=== PATIENT | female | born 1965 | race Caucasian/White ===

== ENCOUNTER 2020-01-09 15:18 | Emergency (ER) | payer OTHER, SELFPAY ==
--- NOTE | 2020-01-09 | ECG_ITS ---
Test Reason : CHEST PAIN Blood Pressure : / mmHG Vent. Rate : 103 BPM Atrial Rate : 103 BPM P-R Int : 136 ms QRS Dur : 086 ms QT Int : 318 ms P-R-T Axes : 036 037 033 degrees QTc Int : 416 ms Sinus tachycardia Otherwise normal ECG When compared with ECG of 17-OCT-2016 11:06, No significant change was found Heart rate has increased Referred By: Xin Goldstein Electronically Signed By:MAINOR MCFADDEN MD
[2020-01-09 15:20] VITALS: BP 140/65; PULSE 109; RESP 20; TEMP 36.8; O2SAT 98; BMI 37.3
--- NOTE | 2020-01-09 15:32 | ED_ITS ---
HPI - Chest Pain General Chief Complaint: Chest Pain Stated Complaint: Chest discomfort Time Seen by Provider: 01/09/20 15:31 Source: patient Mode of arrival: ambulatory History of Present Illness HPI narrative: 54-year-old female with a past medical history of asthma, diabetes, hyperlipidemia, hypertension presenting to the ED complaining of substernal chest tightness since yesterday morning. Admits symptoms have been constant. Reports chronic SOB due to asthma, no new or worsening SOB. 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 Reports was recently tested and negative. Denies fever, chills, cough, nausea/vomiting, abdominal pain, recent travel, LE edema, history of clots MD complaint: chest pain and chest discomfort Related Data Allergies Allergy/AdvReac Type Severity Reaction Status Date / Time DUST Allergy Unknown SHORTNESS Uncoded 11/12/19 16:28 OF BREATH Review of Systems Review of Systems: Constitutional: No Weight loss, No Fever, No Chills Cardiovascular: + Chest Pain, +chronic SOB, No Dyspnea on Exertion, No Edema, No Palpitations Respiratory: No Cough, No Sputum, No Wheezing, No Dyspnea Gastrointestinal: No Nausea, No Vomiting, No Diarrhea, No Constipation, No Abdominal pain Musculoskeletal: No joint pain, No Myalgias, No Joint Swelling Skin: No Skin Lesions, No rash Neuro: No Weakness, No Numbness, No Paresthesias Yes all other systems are reviewed and are negative [facility] Past Medical History Attestation statement: The following information was validated with the patient. Medical History (Updated 01/09/20 @ 16:47 by MANAS Kilgore) Asthma Diabetes mellitus, type 2 Hypercholesteremia Hypertension Social History Social History Alcohol intake: never Smoking Status: Never smoker Use of substances other than those prescribed or required for medical reasons: No Advance Directives: No Advance Directives Information Provided: Yes Physical Exam Vital Signs: Vital Signs: Last Vital Signs Temp 98.2 F 01/09/20 15:20 Pulse 109 H 01/09/20 15:20 Resp 20 01/09/20 15:20 BP 140/65 H 01/09/20 15:20 Pulse Ox 98 01/09/20 15:20 Body Mass Index 37.3 Const: General: cooperative and healthy appearing Orientation/consciousness: patient oriented x3 Limitations: no limitations HENMT: Head: Yes normal to inspection Ears: hearing grossly normal bilaterally General nose exam: Normal external nose present Face and sinus: Yes normal facial exam Eyes: General: appearance normal, both eyes and all related structures EOM: EOMs intact bilaterally Neck: Neck: Yes normal visual inspection Chest: Chest palpation & inspection: normal inspection of the chest Resp: Effort & Inspection: normal respiratory effort Auscultation: clear to auscultation bilaterally, no rales, no rhonchi and no wheezes Cardio: Rate: regular rate Heart sounds: S1 normal heart sound present and S2 normal heart sound present GI: Inspection: Yes normal to inspection Palpation (GI): Soft to palpation, nontender, no guarding and not rigid Skin: Rashes: no rashes Wounds: no wounds Neuro: General: patient oriented x3 Gait exam (Neuro): Normal gait present Extrem: General: Yes normal to inspection Course Course Course Narrative: -labs unremarkable, troponin negative, CXR unremarkable Lab results discussed with patient including worrisome signs and symptoms and st rict return precautions. Patient is to follow-up with PCP MDM - Chest Pain MDM Narrative Medical decision making narrative: 54-year-old female with a past medical history of asthma, diabetes, HLD, HTN presenting to the ED complaining of substernal chest tightness since yesterday morning. On exam mildly tachycardic, anxious, lungs CTA, CP not reproducible on exam. Concern for ACS vs anxiety vs GERD. Lower concern for PE/DVT or CHF/pneumonia Plan: EKG, labs, CXR, reassess Lab Data Result diagrams: 01/09/20 16:00 01/09/20 16:00 Labs: Lab Results 01/09/20 01/09/20 01/09/20 Range/Units 16:00 16:00 16:00 WBC 8.8 (4.8-10.8) X10*3/uL RBC 4.35 (4.20-5.50) X10*6/uL Hgb 12.9 (12.0-16.0) g/dl Hct 39.7 (37-47) % MCV 91.3 (80-98) fL MCH 29.7 (27.0-33.0) pg MCHC 32.5 (31.0-35.0) g/dl RDW 13.6 (11.0-16.0) % Plt Count 321 (160-400) X10*3/uL MPV 10.3 (9.4-12.3) fL Immature Gran % (Auto) 0.2 (0.0-0.4) % Neut % (Auto) 68.2 (45-73) % Lymph % (Auto) 20.1 (20-40) % [place] % (Auto) 9.4 (2-11) % Eos % (Auto) 1.6 (0-4) % Baso % (Auto) 0.5 (0-2) % Lymph # (Auto) 1.8 (1.2-4.9) X10*3/uL [place] # (Auto) 0.8 (0.1-1.2) X10*3/uL Eos # (Auto) 0.1 (0.0-0.4) X10*3/uL Baso # (Auto) 0.0 (0.0-0.2) X10*3/uL Abs Immat Gran (auto) 0.02 (0.00-0.03) X10*3/uL Absolute Neuts (auto) 6.0 (2.0-8.3) X10*3/uL Absolute Nucleated RBC 0.000 (0.0-0.012) X10*3/uL Nucleated RBC % (auto) 0.0 (0.0-0.2) /100WBC Hold Blue Top SEE NOTE Sodium 140 (135-145) mmol/L Potassium 4.4 (3.3-5.1) mmol/l Chloride 106 (96-108) mmol/L Carbon Dioxide 25 (22-29) mmol/L Anion Gap 13 (12-20) BUN 12 (9-16) mg/dL Creatinine 0.82 (0.5-1.4) mg/dL Estim Creat Clear Calc 87.3 Estimated GFR > 60 Random Glucose 97 (60-115) mg/dL Calcium 8.5 (8.4-10.2) mg/dL Magnesium 1.7 (1.6-2.6) mg/dL Total Bilirubin 0.6 (0.0-1.0) mg/dL Direct Bilirubin 0.2 (0.0-0.5) mg/dL AST 21 (5-31) U/L ALT 18 (0-31) U/L Alkaline Phosphatase 84 (39-117) U/L Troponin I High Sens (<3.5-17.0) ng/L B-Natriuretic Peptide (<100) pg/mL Total Protein 6.4 L (6.5-8.0) g/dL Albumin 3.7 (3.5-5.0) g/dL Lipase 10 (8-78) U/L 01/09/20 Range/Units 16:00 WBC (4.8-10.8) X10*3/uL RBC (4.20-5.50) X10*6/uL Hgb (12.0-16.0) g/dl Hct (37-47) % MCV (80-98) fL MCH (27.0-33.0) pg MCHC (31.0-35.0) g/dl RDW (11.0-16.0) % Plt Count (160-400) X10*3/uL MPV (9.4-12.3) fL Immature Gran % (Auto) (0.0-0.4) % Neut % (Auto) (45-73) % Lymph % (Auto) (20-40) % [place] % (Auto) (2-11) % Eos % (Auto) (0-4) % Baso % (Auto) (0-2) % Lymph # (Auto) (1.2-4.9) X10*3/uL [place] # (Auto) (0.1-1.2) X10*3/uL Eos # (Auto) (0.0-0.4) X10*3/uL Baso # (Auto) (0.0-0.2) X10*3/uL Abs Immat Gran (auto) (0.00-0.03) X10*3/uL Absolute Neuts (auto) (2.0-8.3) X10*3/uL Absolute Nucleated RBC (0.0-0.012) X10*3/uL Nucleated RBC % (auto) (0.0-0.2) /100WBC Hold Blue Top Sodium (135-145) mmol/L Potassium (3.3-5.1) mmol/l Chloride (96-108) mmol/L Carbon Dioxide (22-29) mmol/L Anion Gap (12-20) BUN (9-16) mg/dL Creatinine (0.5-1.4) mg/dL Estim Creat Clear Calc Estimated GFR Random Glucose (60-115) mg/dL Calcium (8.4-10.2) mg/dL Magnesium (1.6-2.6) mg/dL Total Bilirubin (0.0-1.0) mg/dL Direct Bilirubin (0.0-0.5) mg/dL AST (5-31) U/L ALT (0-31) U/L Alkaline Phosphatase (39-117) U/L Troponin I High Sens < 3.5 (<3.5-17.0) ng/L B-Natriuretic Peptide 11 (<100) pg/mL Total Protein (6.5-8.0) g/dL Albumin (3.5-5.0) g/dL Lipase (8-78) U/L ECG Data ECG #1: Attestation: I personally reviewed and interpreted this ECG as follows: ECG interpretation date: 01/09/20 Interpretation: Sinus tachycardia, rate 103, no ischemic changes. No ST elevation Discharge Plan Discharge Clinical Impression: Chest pain Patient Disposition: Home, Self-Care Instructions: Chest Pain (ED) Additional Instructions: Your blood work and chest x-ray were unremarkable today in the ED You need to follow-up with her primary care doctor If her symptoms persist or worsen, become more constant, he developed shortness of breath, or fever return to the ED Referrals: Kassi Trejo MD [Primary Care Provider] - 2 days
--- NOTE | 2020-01-09 15:37 | XR_ITS ---
EXAMINATION: XR CHEST CLINICAL INFORMATION: 54-year-old female patient with chest pain. COMPARISON: None recent. TECHNIQUE: PA and lateral erect views of the chest. FINDINGS: The cardiovascular, mediastinal, and hilar structures are normal. There is no evidence of acute pulmonary parenchymal or pleural disease. The bony thorax is intact. A presumptive artifact projects in the right supraclavicular region. XR/XR chest 2V IMPRESSION: No acute cardiopulmonary disease.
[2020-01-09 15:53] VITALS: PULSE 100
[2020-01-09 16:05] LABS: MANUAL DIFF FLAG NO
[2020-01-09 16:09] LABS: Basophils Percent Auto 0.5 % (0-2); Eosinophils Absolute Auto 0.1 X10*3/uL (0.0-0.4); Eosinophils Percent Auto 1.6 % (0-4); Hematocrit 39.7 % (37-47); Hemoglobin 12.9 g/dl (12.0-16.0); Imm Gran Abs Auto 0.02 X10*3/uL (0.00-0.03); Imm Gran Pct Auto 0.2 % (0.0-0.4); Lymphocytes Absolute Auto 1.8 X10*3/uL (1.2-4.9); Lymphocytes Percent Auto 20.1 % (20-40); Mean Corpuscular HGB Conc 32.5 g/dl (31.0-35.0); Mean Corpuscular Hemoglobin 29.7 pg (27.0-33.0); Mean Corpuscular Volume 91.3 fL (80-98); Mean Platelet Volume 10.3 fL (9.4-12.3); Monocytes Absolute Auto 0.8 X10*3/uL (0.1-1.2); Monocytes Percent Auto 9.4 % (2-11); Neutrophils Percent Auto 68.2 % (45-73); Platelet Count 321 X10*3/uL (160-400); Red Blood Count 4.35 X10*6/uL (4.20-5.50); Red Cell Distribution Width 13.6 % (11.0-16.0); White Blood Count 8.8 X10*3/uL (4.8-10.8)
[2020-01-09] MEDS: Famotidine/PF 20 MG/2 ML VIAL IVPUSH (16:09)
[2020-01-09 16:32] LABS: Alanine Aminotransferase 18 U/L (0-31); Albumin Level 3.7 g/dL (3.5-5.0); Alkaline Phosphatase 84 U/L (39-117); Anion Gap 13 (12-20); Aspartate Amino Transferase 21 U/L (5-31); Bilirubin Direct 0.2 mg/dL (0.0-0.5); Bilirubin Total 0.6 mg/dL (0.0-1.0); Blood Urea Nitrogen 12 mg/dL (9-16); Calcium 8.5 mg/dL (8.4-10.2); Carbon Dioxide 25 mmol/L (22-29); Chloride 106 mmol/L (96-108); Creatinine Clr Calc Pharmacy 87.3; Estimated Glomerular Filt Rate > 60; Glucose Random 97 mg/dL (60-115); Lipase 10 U/L (8-78); Magnesium 1.7 mg/dL (1.6-2.6); Potassium 4.4 mmol/l (3.3-5.1); Sodium 140 mmol/L (135-145); Total Protein 6.4 g/dL (6.5-8.0)
[2020-01-09 16:40] LABS: B Type Natriuretic Peptide 11 pg/mL (<100); Troponin-I High Sensitivity < 3.5 ng/L (<3.5-17.0)
[2020-01-09 17:03] VITALS: BP 120/66; PULSE 95; RESP 16; TEMP 36.8; O2SAT 98
== END 2020-01-09 17:10 | disposition home or self-care (01) ==
PROVIDERS: Physician Assistant; Emergency Provider Emergency Medicine; PCP Internal Medicine
DX: R07.9 Chest pain, unspecified (principal); E11.9 Type 2 diabetes mellitus without complications; I10 Essential (primary) hypertension; Z79.899 Other long term (current) drug therapy
CPT/HCPCS: 36415; 71046; 80048; 80076; 83690; 83735; 83880; 84484; 85025; 93005; 96374; 99284

== ENCOUNTER 2020-02-09 08:42 | Outpatient (REF) | payer OTHER, SELFPAY ==
[2020-02-09 09:38] LABS: MANUAL DIFF FLAG NO
[2020-02-09 09:51] LABS: Basophils Percent Auto 0.4 % (0-2); Eosinophils Absolute Auto 0.1 X10*3/uL (0.0-0.4); Eosinophils Percent Auto 1.7 % (0-4); Hematocrit 40.4 % (37-47); Hemoglobin 13.1 g/dl (12.0-16.0); Imm Gran Abs Auto 0.02 X10*3/uL (0.00-0.03); Imm Gran Pct Auto 0.3 % (0.0-0.4); Lymphocytes Absolute Auto 1.5 X10*3/uL (1.2-4.9); Lymphocytes Percent Auto 19.6 % (20-40); Mean Corpuscular HGB Conc 32.4 g/dl (31.0-35.0); Mean Corpuscular Hemoglobin 29.7 pg (27.0-33.0); Mean Corpuscular Volume 91.6 fL (80-98); Mean Platelet Volume 11.3 fL (9.4-12.3); Monocytes Absolute Auto 0.6 X10*3/uL (0.1-1.2); Monocytes Percent Auto 8.2 % (2-11); Neutrophils Absolute Auto 5.5 X10*3/uL (2.0-8.3); Neutrophils Percent Auto 69.8 % (45-73); Platelet Count 308 X10*3/uL (160-400); Red Blood Count 4.41 X10*6/uL (4.20-5.50); Red Cell Distribution Width 13.6 % (11.0-16.0); White Blood Count 7.8 X10*3/uL (4.8-10.8)
[2020-02-09 10:19] LABS: Estimated Average Glucose 114 mg/dL; Hemoglobin A1c % 5.6 %
[2020-02-09 10:23] LABS: Alanine Aminotransferase 14 U/L (0-31); Albumin Level 3.8 g/dL (3.5-5.0); Alkaline Phosphatase 80 U/L (39-117); Anion Gap 13 (12-20); Aspartate Amino Transferase 20 U/L (5-31); Bilirubin Total 0.7 mg/dL (0.0-1.0); Blood Urea Nitrogen 12 mg/dL (9-16); Calcium 9.2 mg/dL (8.4-10.2); Carbon Dioxide 26 mmol/L (22-29); Chloride 105 mmol/L (96-108); Cholesterol 159 mg/dL; Estimated Glomerular Filt Rate > 60; Glucose Random 88 mg/dL (60-115); HDL Cholesterol 52 mg/dL; LDL Cholesterol Calculated 79 mg/dl; Potassium 4.7 mmol/l (3.3-5.1); Sodium 139 mmol/L (135-145); Total Protein 6.5 g/dL (6.5-8.0); Triglycerides 141 mg/dL
[2020-02-09 10:46] LABS: Ferritin 10 ng/mL (10-250); Thyroid Stimulating Hormone 1.58 uIU/mL (0.32-4.0)
== END 2020-02-09 08:43 | disposition home or self-care (01) ==
LOC: HO.LAB 08:42
PROVIDERS: Visit Provider Internal Medicine
DX: E78.00 Pure hypercholesterolemia, unspecified (principal); D50.8 Other iron deficiency anemias; I10 Essential (primary) hypertension; R73.01 Impaired fasting glucose; Z00.00 Encounter for general adult medical examination without abnormal findings
CPT/HCPCS: 36415; 80053; 80061; 82728; 83036; 84443; 85025

== ENCOUNTER 2020-04-16 09:05 | Outpatient (REF) | payer OTHER, SELFPAY ==
[2020-04-16 09:42] LABS: MANUAL DIFF FLAG NO
[2020-04-16 09:48] LABS: Basophils Percent Auto 0.4 % (0-2); Eosinophils Absolute Auto 0.1 X10*3/uL (0.0-0.4); Eosinophils Percent Auto 1.7 % (0-4); Hematocrit 41.1 % (37-47); Hemoglobin 13.2 g/dl (12.0-16.0); Imm Gran Abs Auto 0.01 X10*3/uL (0.00-0.03); Imm Gran Pct Auto 0.1 % (0.0-0.4); Lymphocytes Absolute Auto 1.9 X10*3/uL (1.2-4.9); Lymphocytes Percent Auto 26.7 % (20-40); Mean Corpuscular HGB Conc 32.1 g/dl (31.0-35.0); Mean Corpuscular Hemoglobin 29.5 pg (27.0-33.0); Mean Corpuscular Volume 91.7 fL (80-98); Mean Platelet Volume 10.7 fL (9.4-12.3); Monocytes Absolute Auto 0.6 X10*3/uL (0.1-1.2); Monocytes Percent Auto 8.9 % (2-11); Neutrophils Absolute Auto 4.4 X10*3/uL (2.0-8.3); Neutrophils Percent Auto 62.2 % (45-73); Platelet Count 369 X10*3/uL (160-400); Red Blood Count 4.48 X10*6/uL (4.20-5.50); Red Cell Distribution Width 13.1 % (11.0-16.0); White Blood Count 7.1 X10*3/uL (4.8-10.8)
[2020-04-16 09:58] LABS: Estimated Average Glucose 114 mg/dL; Hemoglobin A1c % 5.6 %
[2020-04-16 10:25] LABS: Alanine Aminotransferase 16 U/L (0-31); Alkaline Phosphatase 94 U/L (39-117); Anion Gap 14 (12-20); Aspartate Amino Transferase 19 U/L (5-31); Bilirubin Total 0.7 mg/dL (0.0-1.0); Blood Urea Nitrogen 12 mg/dL (9-16); Calcium 9.9 mg/dL (8.4-10.2); Carbon Dioxide 27 mmol/L (22-29); Chloride 104 mmol/L (96-108); Cholesterol 175 mg/dL; Estimated Glomerular Filt Rate > 60; Glucose Random 79 mg/dL (60-115); HDL Cholesterol 53 mg/dL; LDL Cholesterol Calculated 81 mg/dl; Potassium 4.8 mmol/L (3.3-5.1); Sodium 140 mmol/L (135-145); Total Protein 6.9 g/dL (6.5-8.0); Triglycerides 208 mg/dL
[2020-04-16 10:47] LABS: Thyroid Stimulating Hormone 1.71 uIU/mL (0.32-4.0)
== END 2020-04-16 09:06 | disposition home or self-care (01) ==
LOC: HO.LAB 09:05
PROVIDERS: PCP Internal Medicine; Visit Provider Internal Medicine
DX: Z00.00 Encounter for general adult medical examination without abnormal findings (principal); D50.8 Other iron deficiency anemias; E78.00 Pure hypercholesterolemia, unspecified; I10 Essential (primary) hypertension; R73.01 Impaired fasting glucose
CPT/HCPCS: 36415; 80053; 80061; 83036; 84443; 85025

== ENCOUNTER 2020-08-24 07:57 | Outpatient (REF) | payer OTHER, SELFPAY ==
--- NOTE | ~2020-08-24 | MM_ITS ---
EXAMINATION: MM SCREENING DIGITAL BREAST TOMOSYNTHESIS, BILATERAL CLINICAL INFORMATION: Screening. Asymptomatic. The lifetime risk of breast cancer based on the Tyrer-Cuzick Model is 8.5%. COMPARISON: Mammography: August 19, 2019 and studies dating back to June 22, 2013 TECHNIQUE: Digital breast tomosynthesis is performed in both the craniocaudal and mediolateral oblique views along with computer-aided detection (CAD). Synthesized 2D images are generated from the tomosynthesis. FINDINGS: There are scattered areas of fibroglandular density (ACR BI-RADS breast composition Category b). There are no significant masses, abnormal calcifications, or other abnormalities. MM/MM tomosynthesis screening BI IMPRESSION: There are no significant changes from prior study. ASSESSMENT: BI-RADS BI-RADS 1 RECOMMENDATION: Routine annual mammography screening. This patient's information was entered into a reminder system with a target due date for their next mammogram.
== END 2020-08-24 07:58 | disposition home or self-care (01) ==
LOC: HO.MAMMO 07:57
PROVIDERS: PCP Internal Medicine; Visit Provider Internal Medicine
DX: Z12.31 Encounter for screening mammogram for malignant neoplasm of breast (principal)
CPT/HCPCS: 77063; 77067

== ENCOUNTER 2021-03-14 15:03 | Outpatient (REF) | payer OTHER, SELFPAY ==
[2021-03-14 15:57] LABS: Binax Internal Control QC Valid; Binax Now Covid-19 Ag Positive (Negative)
== END 2021-03-14 15:04 | disposition home or self-care (01) ==
LOC: HO.LAB 15:03
PROVIDERS: Visit Provider Internal Medicine
DX: Z20.822 Contact with and (suspected) exposure to COVID-19 (principal)
CPT/HCPCS: C9803

== ENCOUNTER 2021-03-30 13:26 | Outpatient (REF) | payer OTHER, SELFPAY ==
[2021-03-30 13:49] LABS: COVID-19 Test Negative (Negative); IDNOW Serial# 16C4AD1C
== END 2021-03-30 13:27 | disposition home or self-care (01) ==
LOC: HO.LAB 13:26
PROVIDERS: Visit Provider Internal Medicine
DX: Z20.822 Contact with and (suspected) exposure to COVID-19 (principal)
CPT/HCPCS: 87635; C9803

== ENCOUNTER 2021-04-21 09:23 | Outpatient (REF) | payer OTHER, SELFPAY ==
[2021-04-21 09:44] LABS: MANUAL DIFF FLAG NO
[2021-04-21 10:00] LABS: Basophils Percent Auto 0.2 % (0-2); Eosinophils Absolute Auto 0.1 X10*3/uL (0.0-0.4); Eosinophils Percent Auto 1.7 % (0-4); Hematocrit 42.3 % (37.0-47.0); Hemoglobin 13.7 g/dl (12.0-16.0); Imm Gran Abs Auto 0.02 X10*3/uL (0.00-0.03); Imm Gran Pct Auto 0.2 % (0.0-0.4); Lymphocytes Absolute Auto 2.5 X10*3/uL (1.2-4.9); Lymphocytes Percent Auto 30.4 % (20-40); Mean Corpuscular HGB Conc 32.4 g/dl (31.0-35.0); Mean Corpuscular Hemoglobin 29.3 pg (27.0-33.0); Mean Corpuscular Volume 90.6 fL (80.0-98.0); Mean Platelet Volume 10.5 fL (9.4-12.3); Monocytes Absolute Auto 0.7 X10*3/uL (0.1-1.2); Monocytes Percent Auto 8.4 % (2-11); Neutrophils Absolute Auto 4.8 x10*3/uL (2.0-8.3); Neutrophils Percent Auto 59.1 % (45-73); Platelet Count 335 X10*3/uL (160-400); Red Blood Count 4.67 X10*6/uL (4.20-5.50); Red Cell Distribution Width 13.4 % (11.0-16.0); White Blood Count 8.1 X10*3/uL (4.8-10.8)
[2021-04-21 10:16] LABS: Estimated Average Glucose 108 mg/dL; Hemoglobin A1c % 5.4 %
[2021-04-21 10:26] LABS: Alanine Aminotransferase 13 U/L (0-31); Alkaline Phosphatase 75 U/L (39-117); Anion Gap 14 (12-20); Aspartate Amino Transferase 18 U/L (5-31); Bilirubin Total 0.6 mg/dL (0.0-1.0); Blood Urea Nitrogen 14 mg/dL (9-16); Calcium 9.9 mg/dL (8.4-10.2); Carbon Dioxide 22 mmol/L (22-29); Chloride 106 mmol/L (96-108); Estimated Glomerular Filt Rate > 60; Glucose Random 79 mg/dL (60-115); Potassium 4.2 mmol/L (3.3-5.1); Sodium 138 mmol/L (135-145); Total Protein 6.8 g/dL (6.5-8.0)
[2021-04-21 10:47] LABS: Thyroid Stimulating Hormone 2.69 uIU/mL (0.32-4.0)
== END 2021-04-21 09:24 | disposition home or self-care (01) ==
LOC: HO.LAB 09:23
PROVIDERS: PCP Internal Medicine; Visit Provider Internal Medicine
DX: Z00.00 Encounter for general adult medical examination without abnormal findings (principal); E78.2 Mixed hyperlipidemia; I10 Essential (primary) hypertension
CPT/HCPCS: 36415; 80053; 83036; 84443; 85025

== ENCOUNTER 2021-08-05 08:44 | Emergency (ER) | payer OTHER, SELFPAY ==
[2021-08-05 09:03] VITALS: BP 141/85; PULSE 88; RESP 16; TEMP 36.9; O2SAT 97; BMI 34.7
--- NOTE | 2021-08-05 09:10 | ED_ITS ---
HPI - Wound/Laceration General Chief Complaint: Wound/Laceration Stated Complaint: thumb lac Time Seen by Provider: 08/05/21 09:04 Source: patient Mode of arrival: ambulatory Limitations: no limitations History of Present Illness HPI narrative: 56 yo female with history of HTN, asthma, HLD, NIDDM who is left handed here with complaints to laceration to the right thumb which occurred at home at 8am. Patient reports it was from a jesenia nail. Last tetanus 5 yrs ago. No numbness, tingling, weakness, fevers, chills. She washed it with water/hydrogen peroxide before coming in. Related Data Allergies Allergy/AdvReac Type Severity Reaction Status Date / Time DUST Allergy Unknown SHORTNESS Uncoded 11/12/19 16:28 OF BREATH Review of Systems Review of Systems: Yes all other systems are reviewed and are negative Constitutional: Constitutional: Reports no additional constitutional complaints, Denies chills, Denies fever(s) and Denies weakness Eyes: Eyes: Reports no additional eye complaints ENT: Reports system reviewed and no additional complaints, except as documented Cardiovascular: Cardiovascular: Reports no additional cardiovascular complaints and Denies acrocyanosis Respiratory: Respiratory: Reports no additional respiratory complaints Gastrointestinal: Gastrointestinal: Reports no additional gastrointestinal complaints, Denies diarrhea, Denies nausea and Denies vomiting Genitourinary: Genitourinary: Reports no additional female genitourinary complaints Musculoskeletal: Musculoskeletal: Reports no additional musculoskeletal complaints, Denies arthralgias, Denies joint swelling, Denies numbness and Denies tingling Integumentary/Breasts: Skin/Breast: Reports system reviewed and no additional complaints, except as docu and Denies rash Neurologic: Reports system reviewed and no additional complaints, except as documented, Denies numbness, Denies tingling and Denies weakness [facility] Past Medical History Attestation statement: The following information was validated with the patient. Source: old records reviewed and nursing notes reviewed Medical History Asthma Diabetes mellitus, type 2 Hypercholesteremia Hypertension Social History Social History Alcohol intake: never Advance Directives: No Advance Directives Information Provided: Yes Physical Exam Vital Signs: Vital Signs: Last Vital Signs Temp 98.5 F 08/05/21 09:03 Pulse 88 08/05/21 09:03 Resp 16 08/05/21 09:03 BP 141/85 H 08/05/21 09:03 Pulse Ox 97 08/05/21 09:03 O2 Del Method 08/05/21 09:03 BMI result Body Mass Index 34.7 Const: General: cooperative, healthy appearing, comfortable and no acute distress Limitations: no limitations HEENT: Head: Yes normal to inspection Eyes: General: appearance normal, both eyes and all related structures Neck: Neck: Yes normal visual inspection Chest: Chest palpation & inspection: normal inspection of the chest Resp: Effort & Inspection: normal respiratory effort Cardio: Other: Right 2+ radial/ulnar pulse Skin: General skin exam: no rashes or lesions noted Neuro: Cognition (Neuro): normal cognition Gait exam (Neuro): Normal gait present Extrem: Hand/finger images: 1. <1cm abrasion with no active bleeding. Nail is intact. Noted over the medial aspect of the right first digit FROM of digit. NV intact distally. Course Course Course Narrative: 56yo female left hand dominant here with abrasion to the right thumb from a jesenia nail which occurred one hr [employer]. NO active bleeding. Wound was cleansed with NS/betadine. A topical bacitracin and bandage were applied She has FROM of the digit. Her tetanus is UTD. Reviewed worrisome signs/symptoms with patient and when to seek additional care. Comfortable with discharge home. MDM - Wound/Laceration Medical Records Attestation: I reviewed the patient's medical records. Lab Data Attestation: I reviewed the patient's lab results. Discharge Plan Discharge Clinical Impression: Laceration Patient Disposition: Home, Self-Care Instructions: Finger Laceration (ED) Additional Instructions: Keep it clean, covered and dry Monitor for signs/symptoms of infection which include redness, drainage, fever or odor Referrals: Kassi Trejo MD [Primary Care Provider] - 1 week (as needed) Interventions: ED Discharge Assessment Last Done: 08/05/21 09:21 Discharge Date/Time: 08/05/21 09:22
== END 2021-08-05 09:22 | disposition home or self-care (01) ==
PROVIDERS: Emergency Provider Emergency Medicine; PCP Internal Medicine
DX: S61.011A Laceration without foreign body of right thumb without damage to nail, initial encounter (principal); I10 Essential (primary) hypertension; E11.9 Type 2 diabetes mellitus without complications; J45.909 Unspecified asthma, uncomplicated; W45.0XXA Nail entering through skin, initial encounter; Y93.9 Activity, unspecified; Y92.009 Unspecified place in unspecified non-institutional (private) residence as the place of occurrence of the external cause; Y99.9 Unspecified external cause status
CPT/HCPCS: 99282

== ENCOUNTER 2021-10-13 09:16 | Outpatient (REF) | payer OTHER, SELFPAY ==
--- NOTE | ~2021-10-13 | MM_ITS ---
EXAMINATION: MM SCREENING DIGITAL BREAST TOMOSYNTHESIS, BILATERAL CLINICAL INFORMATION: Screening. Asymptomatic. The lifetime risk of breast cancer based on the Tyrer-Cuzick Model is 7%. COMPARISON: Mammography: August 24, 2020 and studies dating back to June 22, 2013 TECHNIQUE: Digital breast tomosynthesis is performed in both the craniocaudal and mediolateral oblique views along with computer-aided detection (CAD). Synthesized 2D images are generated from the tomosynthesis. FINDINGS: There are scattered areas of fibroglandular density (ACR BI-RADS breast composition Category b). There are no significant masses, abnormal calcifications, or other abnormalities. MM/MM tomosynthesis screening BI IMPRESSION: No mammographic evidence of malignancy. ASSESSMENT: BI-RADS 1: Negative RECOMMENDATION: Routine annual mammography screening. This patient's information was entered into a reminder system with a target due date for their next mammogram.
== END 2021-10-13 09:17 | disposition home or self-care (01) ==
LOC: HO.MAMMO 09:16
PROVIDERS: PCP Internal Medicine; Visit Provider Internal Medicine
DX: Z12.31 Encounter for screening mammogram for malignant neoplasm of breast (principal)
CPT/HCPCS: 77063; 77067

== ENCOUNTER 2021-10-13 09:49 | Outpatient (REF) | payer OTHER, SELFPAY ==
[2021-10-13 10:05] LABS: MANUAL DIFF FLAG NO
[2021-10-13 10:39] LABS: Basophils Percent Auto 0.7 % (0-2); Eosinophils Absolute Auto 0.1 X10*3/uL (0.0-0.4); Hematocrit 40.2 % (37.0-47.0); Imm Gran Abs Auto 0.01 X10*3/uL (0.00-0.03); Imm Gran Pct Auto 0.2 % (0.0-0.4); Lymphocytes Absolute Auto 1.7 X10*3/uL (1.2-4.9); Lymphocytes Percent Auto 31.7 % (20-40); Mean Corpuscular HGB Conc 32.3 g/dl (31.0-35.0); Mean Corpuscular Hemoglobin 30.1 pg (27.0-33.0); Mean Corpuscular Volume 93.1 fL (80.0-98.0); Monocytes Absolute Auto 0.5 X10*3/uL (0.1-1.2); Monocytes Percent Auto 9.2 % (2-11); Neutrophils Percent Auto 56.2 % (45-73); Platelet Count 296 X10*3/uL (160-400); Red Blood Count 4.32 X10*6/uL (4.20-5.50); Red Cell Distribution Width 12.9 % (11.0-16.0); White Blood Count 5.4 X10*3/uL (4.8-10.8)
[2021-10-13 11:15] LABS: Alanine Aminotransferase 13 U/L (0-31); Albumin Level 3.9 g/dL (3.5-5.0); Alkaline Phosphatase 76 U/L (39-117); Anion Gap 14 (12-20); Aspartate Amino Transferase 20 U/L (5-31); Bilirubin Total 0.8 mg/dL (0.0-1.0); Blood Urea Nitrogen 17 mg/dL (9-16); Calcium 9.1 mg/dL (8.4-10.2); Carbon Dioxide 21 mmol/L (22-29); Chloride 111 mmol/L (96-108); Cholesterol 176 mg/dL; Estimated Glomerular Filt Rate > 60; Glucose Random 86 mg/dL (60-115); HDL Cholesterol 46 mg/dL; LDL Cholesterol Calculated 98 mg/dl; Potassium 4.4 mmol/L (3.3-5.1); Sodium 142 mmol/L (135-145); Total Protein 6.6 g/dL (6.5-8.0); Triglycerides 161 mg/dL
== END 2021-10-13 09:50 | disposition home or self-care (01) ==
LOC: HO.LAB 09:49
PROVIDERS: PCP Internal Medicine; Visit Provider Internal Medicine
DX: Z00.00 Encounter for general adult medical examination without abnormal findings (principal); E78.00 Pure hypercholesterolemia, unspecified; F43.12 Post-traumatic stress disorder, chronic; G93.2 Benign intracranial hypertension
CPT/HCPCS: 36415; 80053; 80061; 83001; 84443; 85025

== ENCOUNTER 2021-11-30 08:37 | Outpatient (REF) | payer OTHER, SELFPAY | END 2021-11-30 08:38 | disposition home or self-care (01) | LOC: HO.SH 08:37 | PROVIDERS: Visit Provider Internal Medicine | DX: Z01.118 Encounter for examination of ears and hearing with other abnormal findings (principal); Z86.61 Personal history of infections of the central nervous system | CPT/HCPCS: 92557; 92567 ==

== ENCOUNTER 2022-01-19 13:21 | Outpatient (REF) | payer OTHER, SELFPAY ==
[2022-01-19 13:58] LABS: COVID-19 Test Positive (Negative); IDNOW Serial# 16C4AD1C
== END 2022-01-19 13:22 | disposition home or self-care (01) ==
LOC: HO.LAB 13:21
PROVIDERS: Visit Provider Internal Medicine
DX: Z20.822 Contact with and (suspected) exposure to COVID-19 (principal)
CPT/HCPCS: 87635; C9803

== ENCOUNTER 2022-01-26 12:33 | Outpatient (REF) | payer OTHER, SELFPAY ==
[2022-01-26 13:34] LABS: COVID-19 Test Negative (Negative); IDNOW Serial# 9DB6401D
== END 2022-01-26 12:34 | disposition home or self-care (01) ==
LOC: HO.LAB 12:33
PROVIDERS: Visit Provider Internal Medicine
DX: Z20.822 Contact with and (suspected) exposure to COVID-19 (principal)
CPT/HCPCS: 87635; C9803

== ENCOUNTER 2022-09-08 08:28 | Outpatient (REF) | payer OTHER, SELFPAY ==
[2022-09-08 08:52] LABS: MANUAL DIFF FLAG NO
[2022-09-08 09:33] LABS: Basophils Percent Auto 0.5 % (0-2); Eosinophils Absolute Auto 0.1 X10*3/uL (0.0-0.4); Eosinophils Percent Auto 1.6 % (0-4); Hematocrit 40.6 % (37.0-47.0); Hemoglobin 13.3 g/dl (12.0-16.0); Imm Gran Abs Auto 0.01 X10*3/uL (0.00-0.03); Imm Gran Pct Auto 0.2 % (0.0-0.4); Lymphocytes Absolute Auto 1.8 X10*3/uL (1.2-4.9); Lymphocytes Percent Auto 28.4 % (20-40); Mean Corpuscular HGB Conc 32.8 g/dl (31.0-35.0); Mean Corpuscular Hemoglobin 29.9 pg (27.0-33.0); Mean Corpuscular Volume 91.2 fL (80.0-98.0); Mean Platelet Volume 10.9 fL (9.4-12.3); Monocytes Absolute Auto 0.4 X10*3/uL (0.1-1.2); Monocytes Percent Auto 6.8 % (2-11); Neutrophils Percent Auto 62.5 % (45-73); Platelet Count 288 X10*3/uL (160-400); Red Blood Count 4.45 X10*6/uL (4.20-5.50); Red Cell Distribution Width 12.7 % (11.0-16.0); White Blood Count 6.4 X10*3/uL (4.8-10.8)
[2022-09-08 10:16] LABS: Alanine Aminotransferase 16 U/L (0-31); Albumin Level 3.9 g/dL (3.5-5.0); Alkaline Phosphatase 73 U/L (39-117); Anion Gap 14 (12-20); Aspartate Amino Transferase 19 U/L (5-31); Bilirubin Total 0.6 mg/dL (0.0-1.0); Blood Urea Nitrogen 12 mg/dL (9-16); Calcium 10.1 mg/dL (8.4-10.2); Carbon Dioxide 22 mmol/L (22-29); Chloride 107 mmol/L (96-108); Cholesterol 157 mg/dL; Estimated Glomerular Filt Rate 58; Glucose Random 90 mg/dL (60-115); HDL Cholesterol 50 mg/dL; LDL Cholesterol Calculated 77 mg/dl; Potassium 3.9 mmol/L (3.3-5.1); Sodium 139 mmol/L (135-145); Total Protein 6.6 g/dL (6.5-8.0); Triglycerides 153 mg/dL
== END 2022-09-08 08:29 | disposition home or self-care (01) ==
LOC: HO.LAB 08:28
PROVIDERS: PCP Internal Medicine; Visit Provider Internal Medicine
DX: D50.8 Other iron deficiency anemias (principal); E78.00 Pure hypercholesterolemia, unspecified; F33.41 Major depressive disorder, recurrent, in partial remission; I10 Essential (primary) hypertension
CPT/HCPCS: 36415; 80053; 80061; 85025

== ENCOUNTER 2022-11-06 08:23 | Outpatient (REF) | payer OTHER, SELFPAY | END 2022-11-06 08:24 | disposition home or self-care (01) | LOC: HO.MAMMO 08:23 | PROVIDERS: Visit Provider Internal Medicine | DX: Z12.31 Encounter for screening mammogram for malignant neoplasm of breast (principal) | CPT/HCPCS: 77063; 77067 ==

== ENCOUNTER → 2022-11-06 08:30 | Outpatient (BNV) | payer OTHER, SELFPAY | PROVIDERS: Visit Provider Radiology Diagnostic Radiology | DX: Z12.31 Encounter for screening mammogram for malignant neoplasm of breast (principal) | CPT/HCPCS: 77063; 77067 ==

== ENCOUNTER 2022-12-19 10:50 | Outpatient (REF) | payer OTHER, SELFPAY | END 2022-12-19 10:51 | disposition home or self-care (01) | LOC: HO.SH 10:50 | PROVIDERS: Visit Provider Internal Medicine | DX: Z01.118 Encounter for examination of ears and hearing with other abnormal findings (principal); H93.293 Other abnormal auditory perceptions, bilateral | CPT/HCPCS: 92557; 92567 ==

== ENCOUNTER 2023-01-07 13:35 | Outpatient (AMB) | payer OTHER, SELFPAY ==
--- NOTE | 2023-01-07 13:45 | MHC.OFFVIS ---
Intake Vital Signs 01/07/23 13:52 Height 5 ft 3 in Weight 188 lb BMI 33.3 BP 124/86 Intake Visit Reasons: AUB/PCP referral Applied Exercise Physiologist Required: No Information Interpreted: non-clinical & clinical Sales Assistant Displays: Sales Assistant Displays Present (Marielos KOO) Accompanied by: Self / Same As Patient Allergies DUST Allergy (Unknown, Uncoded 01/07/23 13:53) SHORTNESS OF BREATH Is last menstrual period known: Yes HPI HPI Comments History of Present Illness Details Presenting referred from her PCP regarding irregular heavy menstrual cycles associated with passage of blood clots. Patient still having menstruations has not gone through periods of amenorrhea. Last co testing was done at [facility] in 11/17 was negative. Last mammogram was in 11/17 was BI-RADS 1 [facility] Medical History (Updated 01/07/23 @ 14:12 by Arturo Chaudhari MD) Asthma Diabetes mellitus, type 2 Hypercholesteremia Hypertension Surgical History (Updated 01/07/23 @ 13:55 by Marielos Mccallum CMA) Hx of dilation and curettage Family History (Updated 01/07/23 @ 13:56 by Marielos Mccallum CMA) Brother Diabetes Pancreatic cancer Mother Diabetes Social History (Updated 01/07/23 @ 13:57 by aMrielos Mccallum CMA) Household Members: Spouse and Children Housing: Apartment Alcohol intake: current Alcohol intake frequency: holidays/special occasions only Patient Tobacco Use Status: Former Tobacco user Current occupational status: unemployed Sexually active: Yes Sexual orientation: Straight/Heterosexual Gender identity: Female Review of Systems Const All systems reviewed & are unremarkable except as noted in HPI and below Card Reports as per HPI Resp Reports as per HPI GI Reports as per HPI and Reports no additional complaints Reports as per HPI Physical Exam Vital Signs: Last Vital Signs BP 124/86 01/07/23 13:52 BMI result Body Mass Index 33.3 Const General: cooperative, healthy appearing and comfortable Chest Chest palpation & inspection: normal inspection of the chest and normal palpation of entire chest wall Breast/axilla inspection: normal inspection of the breasts and normal inspection of the axillae Breast/axilla palpation: normal palpation of the breasts, normal palpation of the axillae and no axillary lymphadenopathy Resp Effort & Inspection: normal respiratory effort Auscultation: clear to auscultation bilaterally Percussion: percussion normal Cardio Palpation: normal PMI Rate: regular rate Rhythm: regular rhythm Heart sounds: no murmurs and no rubs Peripheral pulses: Peripheral pulses 2+ throughout GI Inspection: Yes normal to inspection Palpation (GI): Soft to palpation, nontender, no guarding, not rigid and No hepatosplenomegaly present Percussion: Yes normal to percussion Auscultation: normal bowel sounds Rectal Exam - Female: deferred General: Yes bladder normal to palpation External Female Exam: No lesion Speculum Exam - Vagina: normal appearance of the vagina, normal palpation, normal vaginal discharge and not erythematous Speculum Exam - Cervix: normal appearance of the cervix and normal palpation Bimanual exam- vagina & uterus: normal bimanual exam, normal palpation, uterine size normal, bladder normal to palpation, consistency normal and normal palpation Bimanual Exam- Adnexa, other: normal adnexae, no masses and no tenderness Assessment & Plan Assessment & Plan (1) Abnormal uterine bleeding: Code(s): N93.9 - Abnormal uterine and vaginal bleeding, unspecified Plan: Co testing not indicated this year, GC and chlamydia taken CBC, TSH, prolactin, FSH/LH, HCG, and pelvic ultrasound ordered. Discussed with the patient the different causes of abnormal bleeding including thyroid disorders, uterine and ovarian pathology, endometrial hyperplasia, carcinoma and other potential causes. Discussed with the patient the work up including CBC (to r/o anemia), TSH, prolactin, FSH/LH, pelvic Ultrasound, endometrial biopsy to r/o endometrial pathology. All questions answered and the patient verbalized understanding. Instructed the patient to schedule an appointment for an endometrial biopsy in 2 weeks. Orders: Orders CT NG by PCR Today N93.9 - Abnormal uterine and vaginal bleeding, unspecified HCG Quantitative Today N93.9 - Abnormal uterine and vaginal bleeding, unspecified Complete Blood Count no Diff Today N93.9 - Abnormal uterine and vaginal bleeding, unspecified TSH reflex Free T4 Today N93.9 - Abnormal uterine and vaginal bleeding, unspecified Prolactin Today N93.9 - Abnormal uterine and vaginal bleeding, unspecified Lutenizing Hormone Today N93.9 - Abnormal uterine and vaginal bleeding, unspecified Follicle Stimulating Hormone Today N93.9 - Abnormal uterine and vaginal bleeding, unspecified US pelvic and transvaginal Today N93.9 - Abnormal uterine and vaginal bleeding, unspecified Coding Level of Care Code New Pt Level 3 (55067) Diagnoses Abnormal uterine bleeding N93.9
[2023-01-07 13:52] VITALS: BP 124/86; BMI 33.3
== END 2023-01-07 15:20 | disposition home or self-care (01) ==
LOC: HO.HWS 13:35
PROVIDERS: PCP Internal Medicine; Visit Provider Obstetrics & Gynecology
DX: N93.9 Abnormal uterine and vaginal bleeding, unspecified (principal)
CPT/HCPCS: 99203

== ENCOUNTER 2023-01-07 13:35 | Outpatient (REF) | payer OTHER, SELFPAY | END 2023-01-07 13:36 | disposition home or self-care (01) | LOC: HO.LNP 13:35 | PROVIDERS: PCP Internal Medicine; Visit Provider Obstetrics & Gynecology | DX: N93.9 Abnormal uterine and vaginal bleeding, unspecified (principal) | CPT/HCPCS: 99202 ==

== ENCOUNTER 2023-01-07 14:22 | Outpatient (REF) | payer OTHER, SELFPAY ==
[2023-01-07 15:24] LABS: Hematocrit 44.5 % (37.0-47.0); Hemoglobin 14.3 g/dl (12.0-16.0); Mean Corpuscular HGB Conc 32.1 g/dl (31.0-35.0); Mean Corpuscular Volume 93.3 fL (80.0-98.0); Mean Platelet Volume 11.7 fL (9.4-12.3); Platelet Count 298 X10*3/uL (160-400); Red Blood Count 4.77 X10*6/uL (4.20-5.50); Red Cell Distribution Width 12.9 % (11.0-16.0); White Blood Count 10.5 X10*3/uL (4.8-10.8)
[2023-01-07 16:05] LABS: HCG Quantitative < 2 mIU/mL; TSH reflex Free T4 3.45 uIU/mL (0.32-4.0)
[2023-01-08 07:24] LABS: Follicle Stimulating Hormone 2.2 mIU/mL; Lutenizing Hormone 17.3 mIU/mL; Prolactin 10.7 ng/mL
[2023-01-08 11:01] LABS: CT PCR NOT DETECTED (Not Detect.); NG PCR NOT DETECTED (Not Detect.)
== END 2023-01-07 14:23 | disposition home or self-care (01) ==
LOC: HO.LAB 14:22
PROVIDERS: PCP Internal Medicine; Visit Provider Obstetrics & Gynecology
DX: N93.9 Abnormal uterine and vaginal bleeding, unspecified (principal)
CPT/HCPCS: 0353U; 36415; 83001; 83002; 84146; 84443; 84702; 85027

== ENCOUNTER 2023-02-01 13:10 | Outpatient (REF) | payer OTHER, SELFPAY ==
--- NOTE | ~2023-02-01 | US_ITS ---
EXAM: Pelvic Ultrasound CLINICAL INDICATION: Abnormal uterine and vaginal bleeding. COMPARISON: None available TECHNIQUE: The pelvis was evaluated using transabdominal and transvaginal imaging. Color Doppler imaging and spectral analysis of the bilateral ovaries was also performed. FINDINGS: Retroverted uterus measures 8.9 x 5.6 x 6.9 cm in longitudinal by AP by transverse dimension. The endometrial stripe is not thickened and measures 0.3 cm. 1.6 cm posterior fundal fibroid is noted. There is a 6 mm cystic focus within the anterior fundal body, nonspecific. Nabothian cyst noted within the cervix. The left ovary measures approximately 2.7 x 1.8 x 1.6 cm and is normal. The right ovary measures approximately 2.1 x 2.5 x 1.4 cm and is also normal. There are no abnormal adnexal masses. There is a small amount of free fluid in the pelvis. US/US pelvic and transvaginal IMPRESSION: 1. Normal thickness endometrial stripe. 2. 1.6 cm posterior fundal fibroid. 3. 6 mm cystic focus within the anterior fundal body, nonspecific. 4. Nabothian cysts of the cervix. 5. Small amount of free pelvic fluid, nonspecific and possibly physiologic.
== END 2023-02-01 13:11 | disposition home or self-care (01) ==
LOC: HO.US 13:10
PROVIDERS: PCP Internal Medicine; Visit Provider Obstetrics & Gynecology
DX: N93.9 Abnormal uterine and vaginal bleeding, unspecified (principal)
CPT/HCPCS: 76830; 76856

== ENCOUNTER 2023-03-04 12:42 | Outpatient (AMB) | payer OTHER, SELFPAY ==
--- NOTE | 2023-03-04 12:48 | MHC.OFFVIS ---
Intake Vital Signs 03/04/23 12:54 Height 5 ft 3 in Weight 188 lb BMI 33.3 BP 116/68 Position Sitting Pulse 78 Intake Visit Reasons: Ultrasound results/EMB Intake Note: Patient presents today for Ultrasound Results, and EMB. Attenuator Required: No Information Interpreted: non-clinical & clinical Tax Intern: Tax Intern Present Accompanied by: Self / Same As Patient Allergies DUST Allergy (Unknown, Uncoded 01/07/23 13:53) SHORTNESS OF BREATH Is last menstrual period known: Yes HPI HPI Comments History of Present Illness Details Presenting for EMB PFSH Medical History Asthma Diabetes mellitus, type 2 Hypercholesteremia Hypertension Surgical History Hx of dilation and curettage Family History Brother Diabetes Pancreatic cancer Mother Diabetes Social History Household Members: Spouse and Children Housing: Apartment Alcohol intake: current Alcohol intake frequency: holidays/special occasions only Patient Tobacco Use Status: Former Tobacco user Current occupational status: unemployed Sexual orientation: Straight/Heterosexual Gender identity: Female Physical Exam Vital Signs: Last Vital Signs Pulse 78 03/04/23 12:54 BP 116/68 03/04/23 12:54 BMI result Body Mass Index 33.3 Office Procedures Endometrial Biopsy Details: The patient was counseled regarding the indication and benefits of endometrial sampling to rule out endometrial pathology including not limited to endometrial hyperplasia or endometrial cancer and others; The alternatives (Either do nothing vs. hysteroscopy D&C) & the risks were discussed with the patient including but not limited: pain, uterine perforation, bleeding, infection, possible injury to bladder, bowel, ureter, possible need for blood transfusion with all its possible risks. The patient verbalized understanding all questions answered and signed consent. The patient was placed into the dorsal lithotomy position; a speculum was inserted in the vagina. Using aseptic technique for the procedure, the cervix was cleansed with Betadine. The anterior lip of the cervix was grasped with a single tooth tenaculum. The uterus was sounded to 7 cm with a 4 mm Pipelle was used. Tissues samples were obtained and placed in formalin, in a patient labeled container and sent to the pathology department. At the end of the procedure, there was minimal bleeding noted The patient tolerated the procedure well and was discharged in good condition with the following instructions: Nothing in the vagina until the bleeding stops. No sex until the bleeding stops, to call if any of the following occurs: fever (>100.4), flu-like symptoms, abdominal pain, heavy bleeding, four smelling vaginal discharge. The patient was instructed to schedule a Follow up appointment in 2 weeks to discuss pathology results of the biopsy and treatment options. This note was generated with a voice recognition program. Some errors may have been overlooked during the review of this note. Sometimes these errors may affect the content or meaning of a given sentence. [id number] Biopsy Assessment & Plan Assessment & Plan (1) Abnormal uterine bleeding: Code(s): N93.9 - Abnormal uterine and vaginal bleeding, unspecified Plan: EMB done, see procedure note Orders: Orders AMB Endometrial Biopsy Today N93.9 - Abnormal uterine and vaginal bleeding, unspecified Coding Level of Care Code Procedure Only Diagnoses Abnormal uterine bleeding N93.9 CPT Codes Endometrial Biopsy - CPT: 97968-Lazhndylplm Biopsy ([id number])
[2023-03-04 12:54] VITALS: BP 116/68; PULSE 78; BMI 33.3
== END 2023-03-04 13:22 | disposition home or self-care (01) ==
LOC: HO.HWS 12:42
PROVIDERS: PCP Internal Medicine; Visit Provider Obstetrics & Gynecology
DX: N93.9 Abnormal uterine and vaginal bleeding, unspecified (principal)
CPT/HCPCS: 58100

== ENCOUNTER → 2023-03-04 12:42 | Outpatient (BNVA) | payer OTHER, SELFPAY | PROVIDERS: PCP Internal Medicine; Visit Provider Obstetrics & Gynecology | DX: N93.9 Abnormal uterine and vaginal bleeding, unspecified (principal) | CPT/HCPCS: 58100 ==

== ENCOUNTER 2023-03-05 08:52 | Outpatient (REF) | payer OTHER, SELFPAY | END 2023-03-05 08:53 | disposition home or self-care (01) | LOC: HO.LNP 08:52 | PROVIDERS: Visit Provider Obstetrics & Gynecology | DX: N93.9 Abnormal uterine and vaginal bleeding, unspecified (principal) | CPT/HCPCS: 88305 ==

== ENCOUNTER 2023-03-21 12:45 | Outpatient (AMB) | payer OTHER, SELFPAY ==
--- NOTE | 2023-03-21 12:52 | A.OFFVIS_ITS ---
Intake Vital Signs 03/21/23 12:53 Height 5 ft 3 in Weight 188 lb BMI 33.3 BP 120/66 Intake Visit Reasons: EMB follow up Software Installer Required: No Allergies DUST Allergy (Unknown, Uncoded 03/21/23 12:53) SHORTNESS OF BREATH Is last menstrual period known: No Post menopausal: Yes Patient : No HPI HPI Comments History of Present Illness Details The patient is presenting for follow-up to discuss the results of her abnormal uterine bleeding workup and options of treatment. The following workup was done.: H&H= 14.3/44.1 TSH, hCG, prolactin GC and chlamydia were negative. FSH/LH premenopausal Endometrial biopsy pathology showed the following: Benign atrophic endometrium and scant benign endocervical glandular and squamous epithelium; no atypia or carcinoma Co testing was done was negative. Mammogram was done in 11/17 was BI-RADS 1. Pelvic ultrasound showed the following: IMPRESSION: 1. Normal thickness endometrial stripe. 2. 1.6 cm posterior fundal fibroid. 3. 6 mm cystic focus within the anterio r fundal body, nonspecific. 4. Nabothian cysts of the cervix. 5. Small amount of free pelvic fluid, n onspecific and possibly physiologic. [facility] Medical History Asthma Diabetes mellitus, type 2 Hypercholesteremia Hypertension Surgical History Hx of dilation and curettage Family History Brother Diabetes Pancreatic cancer Mother Diabetes Social History Household Members: Spouse and Children Housing: Apartment Alcohol intake: current Alcohol intake frequency: holidays/special occasions only Patient Tobacco Use Status: Former Tobacco user Patient : No Current occupational status: unemployed Sexual orientation: Straight/Heterosexual Gender identity: Female Female Reproductive History Menstrual control method: none Review of Systems Const All systems reviewed & are unremarkable except as noted in HPI and below Reports as per HPI and Reports no additional complaints GI Reports no additional complaints Reports no additional complaints Physical Exam Vital Signs: Last Vital Signs BP 120/66 03/21/23 12:53 BMI result Body Mass Index 33.3 Assessment & Plan Assessment & Plan (1) Abnormal uterine bleeding: Code(s): N93.9 - Abnormal uterine and vaginal bleeding, unspecified Plan: Discussed with the patient the results of the work up done and options of treatment including cyclic Provera, Mirena IUD, endometrial ablation and hysterectomy. All pros, cons, risks and benefits if each option was discussed with the patient and the patient decided to think about it and get back to us. All questions answered the patient verbalized understanding. (2) Uterine myoma: Code(s): D25.9 - Leiomyoma of uterus, unspecified Plan: Discussed with the patient the findings on pelvic ultrasound & the risk of myosarcoma; discussed with the patient the options of treatment including expectant management versus hysterectomy; the pros and cons, risks benefits of each approach were discussed with the patient including the fact that in cases of myosarcoma, surgical treatment can lead to early diagnosis and positively affects the prognosis; after further discussion, the patient decided to proceed with expectant management. Will repeat pelvic ultrasound in 6. Instructions given to patient to call in case any of the following occurs: pressure symptoms, abnormal uterine bleeding, pelvic pain; and to schedule a 6 months ultrasound follow-up appointment . All questions answered, the patient verbalized understanding and agreed with the plan . Orders: Orders US pelvic and transvaginal 6 Months D25.9 - Leiomyoma of uterus, unspecified Coding Level of Care Code Est Pt Level 3 (92489) Diagnoses Abnormal uterine bleeding N93.9 Uterine myoma D25.9
[2023-03-21 12:53] VITALS: BP 120/66; BMI 33.3
== END 2023-03-21 14:09 | disposition home or self-care (01) ==
PROVIDERS: PCP Internal Medicine; Visit Provider Obstetrics & Gynecology
DX: N93.9 Abnormal uterine and vaginal bleeding, unspecified (principal); D25.9 Leiomyoma of uterus, unspecified
CPT/HCPCS: 99213

== ENCOUNTER → 2023-03-21 12:45 | Outpatient (BNVA) | payer OTHER, SELFPAY | PROVIDERS: PCP Internal Medicine; Visit Provider Obstetrics & Gynecology | DX: N93.9 Abnormal uterine and vaginal bleeding, unspecified (principal); D25.9 Leiomyoma of uterus, unspecified | CPT/HCPCS: 99212 ==

== ENCOUNTER 2023-06-18 07:16 | Emergency (ER) | payer OTHER, SELFPAY ==
--- NOTE | ~2023-06-18 | XR_ITS ---
EXAMINATION: XR LUMBOSACRAL SPINE CLINICAL INFORMATION: Pain COMPARISON: 01/09/2020 chest radiograph, 12/09/[address] TECHNIQUE: Three views of the lumbosacral spine. FINDINGS: Acute rightward angulation lower thoracic spine and lumbar levoscoliosis have progressed but were present in 2010. Lower thoracic compression fracture, dislocation narrowing and spurring and also likely progressed from 01/09/2020 chest radiograph. Moderately severe/severe lumbosacral disc space narrowing again seen. Pedicles and SI joints within normal limits. 1.7 cm calcific density identified right upper quadrant lower thoracic level, possibly gallstone. XR/XR lumbar spine 2-3V IMPRESSION: Progression chronic thoracolumbar changes from 2009 and 2019 studies. Right upper quadrant calcific density, possibly gallstone.
[2023-06-18 07:39] VITALS: BP 136/74; PULSE 89; RESP 18; TEMP 36.9; O2SAT 99; BMI 34.6
--- NOTE | 2023-06-18 07:57 | ED.BACK ---
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 Has spams now not responding to tylenol. No b/b incontinence no saddle anesthesia no IVDA. Has had back issues before no prior surgery notes she has arthritis MD elicited complaint: back pain Pertinent past history: prior back pain Onset (ago): week(s) (2) Timing: intermittent Severity: moderate Similar Symptoms Previously: Yes Quality: spasming and throbbing Location: lumbar spine Radiation: none Exacerbating factors: movement, walking and lifting Relieving factors: immobilization Context: while lifting and bending Associated symptoms: denies other symptoms Treatments prior to arrival: acetaminophen Work related injury: No Related Data Home Medications ?Medication ?Instructions ?Recorded ?Confirmed bupropion HCl 300 mg 24 hr tablet, 300 mg PO DAILY 01/07/23 extended release losartan 50 mg tablet 50 mg PO DAILY 01/07/23 simvastatin 40 mg tablet 40 mg PO BEDTIME 01/07/23 topiramate 100 mg tablet 100 mg PO DAILY 01/07/23 Previous Rx's ?Medication ?Instructions ?Recorded cyclobenzaprine 10 mg tablet 10 mg PO TID PRN muscle spasm #20 06/18/23 tabs lidocaine 5 % topical patch 1 patch topical DAILY #30 ea 06/18/23 Allergies Allergy/AdvReac Type Severity Reaction Status Date / Time DUST Allergy Unknown SHORTNESS Uncoded 06/18/23 07:44 OF BREATH Review of Systems Review of Systems: Constitutional : No Weight loss, No Fever, No Chills, ENT/Mouth : No Hearing loss, No Ear Pain, No Nasal Congestion, No Sinus Pain, No Hoarseness, No sore throat, No Rhinorrhea, No Swallowing Difficulty Cardiovascular : No Chest Pain, No SOB Respiratory : No Cough, No Dyspnea Gastrointestinal : No Nausea, No Vomiting, No Diarrhea, No abdominal Pain, No Hematochezia, No Melena Genitourinary : No Dysuria, No Urinary Frequency, No Hematuria, No Urinary Incontinence, Musculoskeletal : positive back pain Skin : No Skin Lesions, No rash Neuro : No Weakness, No Numbness, No Paresthesias, no loss of bowel or bladder incontinence, no saddle anesthesia all other systems are negative [facility] Past Medical History Attestation statement: The following information was validated with the patient. Source: old records reviewed Medical History Asthma Diabetes mellitus, type 2 Hypercholesteremia Hypertension Surgical History Hx of dilation and curettage Family History Family History Brother Diabetes Pancreatic cancer Mother Diabetes Social History Social History Household Members: Spouse and Children Housing: Apartment Alcohol intake: current Alcohol intake frequency: holidays/special occasions only Patient Tobacco Use Status: Former Tobacco user Advance Directives: No Current occupational status: unemployed Sexual orientation: Straight/Heterosexual Gender identity: Female Physical Exam Vital Signs: Vital Signs: Last Vital Signs Temp 98.5 F 06/18/23 07:39 Pulse 89 06/18/23 07:39 Resp 18 06/18/23 07:39 BP 136/74 06/18/23 07:39 Pulse Ox 99 06/18/23 07:39 O2 Del Method Room Air 06/18/23 07:39 BMI result Body Mass Index 34.6 Appearance: Alert. Oriented X3. No acute distress. Eyes: Pupils equal, round and reactive to light. ENT: Pharynx normal. Neck: Normal inspection. Neck supple. CVS: Normal heart rate and rhythm. Pulses normal. Respiratory: No respiratory distress. Breath sounds normal. Abdomen: Soft and nontender. Back: ttp along lower lumbar paraspinal area that reproduces pain Skin: Skin warm and dry. Normal skin color. Normal skin turgor. Extremities: No lower extremity edema. No calf ttp Neuro: Oriented X 3. No motor deficit. No sensory deficit. distal NV intact Medical Decision Making Medical Decision Making MDM Narrative: 58 yo female with PMH of DM though now diet controlled, HTN, HLD, abnormal uterine bleeding not on blood thinners here with c/o low back pain without any red flags such as b/b incontince no saddle anesthesia. She has normal distal neuro exam and has no abdominal ttp. Will obtain xrays and likely start on muscle relaxers and lidocaine patches Differential Diagnosis Differential Diagnoses: The differential diagnosis associated with the presentation includes lumbar strain, spasm Independent Interpretation I performed an independent interpretation of an: Plain X-Ray (no fracture) Radiology Impression Discussion of test interpretation with radiology: I have reviewed the radiologist's reading. External Record Review External record reviewed: Office record Prescription Management I considered prescription management with: Pain Medication and Other Discharge Plan Discharge Clinical Impression: Strain of lumbar region, Back spasm Patient Disposition: Home, Self-Care Instructions: Acute Low Back Pain (ED), Muscle Spasm (ED) Additional Instructions: continue to take tylenol as needed for pain will add on pain patches and muscle relaxer. back pain generally improves with physical therapy as well please talk to your primary care doctor about physical therapy return for worsening pain, numbness, weakness, loss of control of bowel or bladder or any other concerns. you have significant back disease seen on xray please follow up with our pain management and spine team incidentally might have also found a gallstone on the xray Prescriptions: New cyclobenzaprine 10 mg tablet 10 mg PO TID PRN (Reason: muscle spasm) Qty: 20 0RF lidocaine 5 % adhesive patch,medicated 1 patch topical DAILY Qty: 30 0RF Rx Instructions: leave on most painful area for up to 12 hrs No Action topiramate 100 mg tablet 100 mg PO DAILY losartan 50 mg tablet 50 mg PO DAILY bupropion HCl 300 mg tablet extended release 24 hr 300 mg PO DAILY simvastatin 40 mg tablet 40 mg PO BEDTIME Referrals: Rajiv Dunbar MD [Physician] - (call to schedule appointment) Print Language: Grenadian
[2023-06-18 09:21] VITALS: BP 141/71; PULSE 87; RESP 16; TEMP 36.4; O2SAT 99
== END 2023-06-18 09:23 | disposition home or self-care (01) ==
PROVIDERS: Emergency Provider Emergency Medicine; PCP Internal Medicine
DX: S39.012A Strain of muscle, fascia and tendon of lower back, initial encounter (principal); X50.9XXA Other and unspecified overexertion or strenuous movements or postures, initial encounter; M62.830 Muscle spasm of back; M54.50 Low back pain, unspecified; E11.9 Type 2 diabetes mellitus without complications; I10 Essential (primary) hypertension; E78.00 Pure hypercholesterolemia, unspecified; Z87.891 Personal history of nicotine dependence; Y93.9 Activity, unspecified; Y92.9 Unspecified place or not applicable; Y99.9 Unspecified external cause status
CPT/HCPCS: 72100; 99282; 99283

== ENCOUNTER 2023-06-26 15:07 | Outpatient (AMB) | payer OTHER, SELFPAY ==
--- NOTE | 2023-06-26 15:20 | A.OFFVIS_ITS ---
Vital Signs 06/26/23 15:43 Height 5 ft 3 in Weight 196 lb 4 oz BMI 34.8 BP 128/66 Blood Pressure Location Lt brachial Position Sitting Respiration 16 Pulse 102 H Pulse Source Pulse Oximeter Pulse Oximetry (%) 97 Oxygen Delivery Method Room Air Intake Visit Reasons: Back pain Intake Note: Patient comes in for initial visit [place] [facility]. Reports pain 8/10. Allergies DUST Allergy (Unknown, Uncoded 06/18/23 07:44) SHORTNESS OF BREATH HPI Comments Details: Dionne is very pleasant 58 years old female who presents in my office with come complains on lower back pain in the projection of the sacral bone mostly. She reported that her pain started less than 1 month ago on 06/03/2023. She reports that she does not remember any inciting events, she does not remember any car accident trauma or fall. 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 She can not sleep normally because of her pain can not do activities of daily living she can not take care of herself but she can not function normally she reports that she is suffering from arthritis and spondylosis of the lumbar spine since childhood. Her pain is 8 to 10/10 today the pain is aggravated by weather changes in movements and topical medication in oral medications make her pain better. The pain is most severe in the afternoon and evening and less severe in the morning. In terms of tissue damage he reports her pain as dull, sore, hurting, aching, heavy, spreading, radiating, piercing sensation. She reports her pain was evaluated in the emergency room and she was sent for x-ray of the lumbar spine results of which dictated as below. She also reports that she had an MRI not available to me in 2019. She had ultrasound in [facility] a related to her anemia. She is suffering from heavy menses. She never had any physical therapy she never had any injections. Her past medical history significant for headaches hypertension fatigue dizziness depression iron deficiency anemia asthma arthritis and heavy menses. Her past surgical history is negative she chose to mentioned 3 lumbar puncture between 2014 and 2019. She denies smoking cigarettes she stopped 30 years ago she drinks rarely alcohol she denies caffeinated soda but admits coffee 2 times a day. She denies recreational drugs. [facility] Medical History Asthma Diabetes mellitus, type 2 Hypercholesteremia Hypertension Surgical History Hx of dilation and curettage Family History Brother Diabetes Pancreatic cancer Mother Diabetes Social History Household Members: Spouse and Children Housing: Apartment Alcohol intake: current Alcohol intake frequency: holidays/special occasions only Patient Tobacco Use Status: Former Tobacco user Current occupational status: unemployed Sexual orientation: Straight/Heterosexual Gender identity: Female Review of Systems Const Denies chills and Denies fever(s) ENT Reports Normal hearing present, Denies vertigo and Denies dizziness Card Denies chest pain, Denies chest pain at rest, Denies chest pain with activity, Denies syncope, Denies rapid heart rate, Denies pedal edema and Denies edema Resp Denies chest congestion, Denies cough, Denies hemoptysis, Denies excessive phlegm production, Denies pain on inspiration and Denies pain with cough GI Denies abdominal pain, Denies belching, Denies melena and Denies bloating Denies urinary incontinence Musc Denies as per HPI, Reports back pain, Reports deformity and Reports muscle cramps Neuro Reports Normal hearing present, Denies Abnormal speech present, Denies vertigo, Denies dizziness, Denies syncope, Denies lack of coordination and Denies Sensory deficit (Neuro) Psych Denies depression and Denies irritability Physical Exam Vital Signs: Last Vital Signs Pulse 102 H 06/26/23 15:43 Resp 16 06/26/23 15:43 BP 128/66 06/26/23 15:43 Pulse Ox 97 06/26/23 15:43 Oxygen Delivery Method Room Air 06/26/23 15:43 BMI result Body Mass Index 34.8 Const General: cooperative, healthy appearing, no acute distress, well developed, alert and awake Nutritional Appearance: obese Eyes General: appearance normal, both eyes and all related structures Pupils: Equal, round and reactive pupils present EOM: EOMs intact bilaterally Neck Neck: Yes full ROM Resp Effort & Inspection: normal respiratory effort, able to speak in complete sentences, normal respiratory pattern, no audible wheezes and no cough Cardio Jugular venous distension: no JVD GI Inspection: Yes normal to inspection Back/Spine/Pelvis Other: She is able to stand on bilateral tiptoes in bilateral heels without any difficulty. She is able to flex herself forward and flex herself backwards he reports flexing backwards aggravate her pain. She reports tenderness on palpation in projection of the sacral bone and lower lumbar spines. The tenderness in paraspinal and spinal region. She reports flexing sideways aggravate her pain as well. She denies Valsalva maneuver aggravates her pain. SLR is negative for typical pain in the back it aggravates pain in the back but does not make pain to radiate into bilateral lower extremities, the dorsiflexion at maximal SLR does not aggravate pain further without radiation of the pain into bilateral lower extremities. Ruddy test is equivocal bilaterally however pelvic compression test pelvic distraction test and Stinchfield tests are negative on initial exam. Lateral rotation of the hips does not cause discomfort in the groins. Neuro Cranial nerves: Yes Equal, round and reactive pupils present and Yes Normal hearing present Speech: No Abnormal speech present Gait exam (Neuro): Normal gait present Motor exam (neuro): 5/5 motor strength present throughout Sensory Exam: No Sensory deficit (Neuro) Extrem General: No pedal edema Psych Speech and movement: Normal speech and movement present Affect: normal affect Attitude: cooperative Thought process: Normal thought process present Thought content: Normal thought content present Insight: Good insight present (Psych) Judgement: Good judgement present (Psych) Results Reviewed Results Reviewed: [address] [address] EXAMINATION: XR LUMBOSACRAL SPINE CLINICAL INFORMATION: Pain COMPARISON: 01/09/2020 chest radiograph, 12/09/[address] TECHNIQUE: Three views of the lumbosacral spine. FINDINGS: Acute rightward angulation lower thoracic spine and lumbar levoscoliosis have progressed but were present in 2009. Lower thoracic compression fracture, dislocation narrowing and spurring and also likely progressed from 01/09/2020 chest radiograph. Moderately severe/severe lumbosacral disc space narrowing again seen. Pedicles and SI joints within normal limits. 1.7 cm calcific density identified right upper quadrant lower thoracic level, possibly gallstone. IMPRESSION: Progression chronic thoracolumbar changes from 2009 and 2019 studies. Right upper quadrant calcific density, possibly gallstone. Assessment & Plan Assessment & Plan (1) Idiopathic scoliosis of lumbar region: Code(s): M41.26 - Other idiopathic scoliosis, lumbar region Category: Medical (2) Spondylosis of lumbar region without myelopathy or radiculopathy: Code(s): M47.816 - Spondylosis without myelopathy or radiculopathy, lumbar region Category: Medical (3) Lower back pain: Code(s): M54.50 - Low back pain, unspecified Category: Medical Plan This pain is not chronic in nature it started less than 1 month ago. Patient did not go for physical therapy and did not have any advanced diagnostic studies to treat her pain. I offered her to start physical therapy with core physical therapy program at [facility], patient agreed to go for physical therapy. I also recommended her to try low impact aerobic exercise to treat her pain. Her primary care physician prescribe her muscle relaxants and she is taking NSAIDs [id number] for now this is appropriate management of her pain. we agreed that when she completes physical therapy and her MRI will be ready and her pain is still significant enough she can not give us a call and schedule follow-up appointment. Orders: Orders MR lumbar spine wo con Today M41.26 - Other idiopathic scoliosis, lumbar region, M47.816 - Spondylosis without myelopathy or radiculopathy, lumbar region, M54.50 - Low back pain, unspecified PT Evaluation and Treatment Today M41.26 - Other idiopathic scoliosis, lumbar region, M47.816 - Spondylosis without myelopathy or radiculopathy, lumbar region, M54.50 - Low back pain, unspecified Coding Level of Care Code New Pt Level 3 (27822) Diagnoses Idiopathic scoliosis of lumbar region M41.26 Spondylosis of lumbar region without myelopathy or radiculopathy M47.816 Lower back pain M54.50
[2023-06-26 15:43] VITALS: BP 128/66; PULSE 102; RESP 16; O2SAT 97; BMI 34.8
== END 2023-06-26 15:44 | disposition home or self-care (01) ==
PROVIDERS: PCP Internal Medicine; Visit Provider Anesthesiology
DX: M41.26 Other idiopathic scoliosis, lumbar region (principal); M47.816 Spondylosis without myelopathy or radiculopathy, lumbar region; M54.50 Low back pain, unspecified
CPT/HCPCS: 99203

== ENCOUNTER → 2023-06-26 15:07 | Outpatient (BNVA) | payer OTHER, SELFPAY | PROVIDERS: PCP Internal Medicine; Visit Provider Anesthesiology | DX: M47.816 Spondylosis without myelopathy or radiculopathy, lumbar region (principal); M41.26 Other idiopathic scoliosis, lumbar region; M54.50 Low back pain, unspecified | CPT/HCPCS: 99202 ==

== ENCOUNTER 2023-07-25 18:07 | Outpatient (REF) | payer OTHER, SELFPAY ==
--- NOTE | ~2023-07-25 | MR_ITS ---
EXAMINATION: MR LUMBAR SPINE WITHOUT CONTRAST CLINICAL INFORMATION: Back pain, spasms, arthritis, spondylosis without myelopathy. No history of injury or fall. 58-year-old female. COMPARISON: No prior MR. Lumbar spine x-rays 06/18/2023. TECHNIQUE: Multiplanar multisequence MR imaging of the lumbar spine was done without IV contrast. 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 (Series 4, image 6 of 16). Sagittal Alignment: Normal lordosis. There is a 3 mm retrolisthesis of T11 on T12, likely secondary to the right-sided intervening hemivertebra. Trace retrolisthesis L2 on L3. Trace anterolisthesis L5 on S1. Lumbosacral Junction: Normal. There are 5 [id number] lumbar-type vertebral bodies. 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 Counting from above recommended. Vertebral Bodies: As above. No additional compression deformities. Disc Spaces and Endplates: There are mild edematous and fatty type endplate changes present at T11-T12 with Schmorl's nodes present. Prominent Schmorl's node present in the superior endplate of L5. There are fatty type with minimal edematous type endplate changes at L5-S1. There is severe loss of disc height and signal at T11-T12. Mild loss of disc signal and height at L2-L3, and moderate to severe loss at L5-S1 with a small focus of disc vacuum phenomenon. Spinal Canal: Mild congenital and acquired narrowing is present at T11-T12 seen only on the sagittal images secondary to a diffuse disc bulge and the presence of the hemivertebra, which minimally indents upon the ventral distal cord without cord impingement. Mild to moderate central canal narrowing at this level with moderate to severe bilateral neural foraminal stenosis. Bone Marrow: No significant marrow-replacing process. Conus Medullaris: Terminates at L1 mid level. Morphology and signal is normal. Intradural Nerve Roots: Normal in appearance. Axial Disc Space Images: T11-T12: Seen only sagittally. See above. T12-L1: Seen only sagittally. Minimal diffuse disc bulge with no significant central canal or neural foraminal narrowing. Normal facets. L1-L2: There is a shallow diffuse disc bulge present, with a superimposed left foraminal protrusion of disc material. There are mild facet degenerative changes left greater than right. No central canal narrowing or subarticular recess narrowing of significance. Mild to moderate left neural foraminal narrowing. No right neural foraminal narrowing. L2-L3: Shallow diffuse disc bulge is present with superimposed left foraminal disc protrusion and right far lateral and foraminal disc protrusion which extends lateral to foramen. There is contact of the right greater than left traversing L3 roots without significant mass effect or impingement. There is mild central canal stenosis. There is mild degenerative facet change bilaterally with mild posterior ligamentous infolding/thickening. There is moderate right and mild left neural foraminal narrowing. L3-L4: Minimal central canal narrowing. Mild to moderate hypertrophic facet changes bilaterally with mild posterior ligamentous infolding/thickening. Resultant moderate right greater than left neural foraminal narrowing. L4-L5: Congenitally mildly hypoplastic left facet joint. Dominant right facet joint with hypertrophy from degenerative change. Facet osteophyte contacts and may impinge mildly the traversing right L5 root. There is minimal central canal narrowing. There is mild to moderate right and mild left neural foraminal narrowing. L5-S1: There is moderate bilateral hypertrophic facet changes bilaterally, with mild left facet tropism. Mild posterior ligamentous thickening is present. There is a diffuse disco osteophytic ridge complex present, with superimposed disco osteophytic extrusion right proximal foraminal 2 distal foraminal and lateral to foramen, and disc osteophytic extrusion left proximal foraminal and extending distal foraminal and lateral to foramen. Findings are resulting in minimal central canal stenosis, minimal right subarticular recess stenosis without definite mass effect upon the traversing S1 roots. There is severe left neural foraminal impingement, and moderate to severe right neural foraminal impingement. Paravertebral and Included Extraspinal Soft Tissues: Atrophy of the right kidney with a lobulated appearance is noted. There is a 2.5 cm cyst in the superior pole of the left kidney. The aorta is nonaneurysmal. The adrenal glands and paraspinous musculature demonstrate no suspicious abnormalities. No adenopathy is noted. There is degenerative arthrosis in both SI joints, particularly the synovial aspects. MR/MR lumbar spine wo con IMPRESSION: 1. Multilevel lumbar spondylosis most significant at L5-S1 as discussed above. No high-grade central canal or subarticular recess stenosis. There is severe left and moderate to severe right neural foraminal stenosis at L5-S1 with bilateral foraminal disc osteophytic extrusions. 2. Between T11 and T12 there is a right-sided somewhat posterior butterfly vertebra with a small right-sided rib. This may represents true T11 vertebral body however accounting from above is recommended. This results in a moderate dextroconvex scoliosis centered at T11-T12, and a disc bulge which indents upon the ventral spinal cord without high-grade impingement. 3. Severe disc degeneration at T11-T12, and L5-S1 with associated mild edematous endplate changes superimposed on fatty changes. 4. See the body of the report for detailed level and ancillary findings.
== END 2023-07-25 18:08 | disposition home or self-care (01) ==
LOC: HO.MRI 18:07
PROVIDERS: PCP Internal Medicine; Visit Provider Anesthesiology
DX: M54.50 Low back pain, unspecified (principal); M41.26 Other idiopathic scoliosis, lumbar region; M47.816 Spondylosis without myelopathy or radiculopathy, lumbar region
CPT/HCPCS: 72148

== ENCOUNTER → 2023-07-25 18:08 | Outpatient (BNV) | payer OTHER, SELFPAY | PROVIDERS: PCP Internal Medicine; Visit Provider Radiology Diagnostic Radiology | DX: M47.896 Other spondylosis, lumbar region (principal) | CPT/HCPCS: 72148 ==

== ENCOUNTER 2023-07-29 14:00 | Outpatient (RCR) | payer OTHER, SELFPAY ==
--- NOTE | 2023-07-10 15:44 | MHC.PT.EP ---
[facility] [place] Office [place] Office [place] Office [address] Tim Gannon [address] [phone] F: [phone] F: [phone] F: [phone] F: [phone] Physical Therapy Plan of Care Date of Evaluation: 07/10/23 Date of Surgery: Diagnosis: LOW BACK PAIN Assessment: TJ IS A PLEASANT 58 YO FEMALE WHO HAS DISTANT H/O ARTHRITIS DIAGNOSIS. SHE REPORTS RECENTLY SHE HAS HAD MORE DIFFICULTY WITH LIFTING, PROLONGED POSITIONING, SLEEPING WITH DIFFICULTY ONLY SLEEPING ABOUT 3 HOURS/NIGHT, RECALLS NO BARON. PAIN IMPROVES WITH HOT SHOWERS AND PAIN PATCHES. SHE WORKS AT [employer]. SHE REPORTS HER PAIN IS WORSE ON RIGHT > LEFT. UPON EVAL IMPAIRMENTS INCLUDE DECREASED LROM, DECREASED LE STRENGTH, ALTERED GAIT AND POSTURE, INCREASED TISSUE TENSION AND INCREASED PAIN. FUNCTIONAL LIMITATIONS INCLUDE DECREASED TOLERANCE TO LIFTING, BENDING AND CARRYING. SHE REPORTS DECREASED TOLERANCE TO HOMEMAKING AND SELF CARE TASKS, SHE REPORTS DECREASED PARTICIPATION IN WORK AND COMMUNITY TASKS. 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 Manual therapy to restore motion and function. Therapeutic exercise to improve strength and flexibility. Neuromuscular re-education for posture and balance. Therapeutic activities to return to functional activities of daily living. Electronically signed by: TRINITY PENA PT DPT Please sign and return to therapist. Thank you for your referral.
== END 2023-08-21 15:24 | disposition home or self-care (01) ==
LOC: HO.PT 14:00
PROVIDERS: PCP Internal Medicine; Visit Provider Anesthesiology
DX: M47.816 Spondylosis without myelopathy or radiculopathy, lumbar region (principal); M41.26 Other idiopathic scoliosis, lumbar region; M54.50 Low back pain, unspecified
CPT/HCPCS: 97110; 97140; 97150; 97162; 97530

== ENCOUNTER 2023-08-28 13:02 | Outpatient (AMB) | payer OTHER, SELFPAY ==
--- NOTE | 2023-08-28 13:09 | A.OFFVIS_ITS ---
Vital Signs 08/28/23 13:14 Height 5 ft 3 in Weight 197 lb 6 oz BMI 35.0 BP 126/60 Blood Pressure Location Lt brachial Position Sitting Respiration 16 Pulse 102 H Pulse Source Pulse Oximeter Pulse Oximetry (%) 98 Oxygen Delivery Method Room Air Intake Visit Reasons: discuss MRI results Intake Note: Patient comes in to discuss MRI results. Reports pain 08/04. Allergies DUST Allergy (Unknown, Uncoded 06/18/23 07:44) SHORTNESS OF BREATH HPI Comments Details: Dionne is very pleasant 58 years old female who presents in my office with come complains on lower back pain in the projection of the sacral bone mostly. She reports pain does not radiate into bilateral lower extremities, she reports also pain in the projection of the lower thoracic spine. She reports that flexing forward aggravates her pain, she reports that prolonged sitting aggravates her pain as well. She reports that increased activity aggravates her pain as well. She reported that her pain started o on 06/03/2023. By now this is already subacute going on chronic pain. The patient completed physical therapy and physical therapy did not change her pain. The patient tried NSAIDs and muscle relaxants those medications were not helpful for her pain. 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 She wants to stay active. She was sent on the MRI of the lumbar spine which demonstrated T11-T12 Modic type 1 and type 2 changes as well as L5 and S1 Modic type 2 and type 1 changes. Those changes in the case of L5 and S1 vertebra superimposed 1 on another. A with diagnosis of vertebra genic pain syn drome I will schedule this patient for intercept procedure. Risks and benefits were briefly explained today to the patient. The case will be scheduled under general anesthesia. As of her Modic type 2 changes at T11-T12 vertebra unfortunately no intercept procedure can not be offered for the patient because of the proximity of the spinal cord. [facility] Medical History Asthma Diabetes mellitus, type 2 Hypercholesteremia Hypertension Surgical History Hx of dilation and curettage Family History Brother Diabetes Pancreatic cancer Mother Diabetes Social History Household Members: Spouse and Children Housing: Apartment Alcohol intake: current Alcohol intake frequency: holidays/special occasions only Patient Tobacco Use Status: Former Tobacco user Current occupational status: unemployed Sexual orientation: Straight/Heterosexual Gender identity: Female Review of Systems Const All systems reviewed & are unremarkable except as noted in HPI and below ENT Reports Normal hearing present Neuro Reports Normal hearing present, Denies Abnormal speech present and Denies Sensory deficit (Neuro) Physical Exam Vital Signs: Last Vital Signs Pulse 102 H 08/28/23 13:14 Resp 16 08/28/23 13:14 BP 126/60 08/28/23 13:14 Pulse Ox 98 08/28/23 13:14 Oxygen Delivery Method Room Air 08/28/23 13:14 BMI result Body Mass Index 35.0 Const General: cooperative, healthy appearing, no acute distress, well developed, alert and awake Nutritional Appearance: obese Eyes General: appearance normal, both eyes and all related structures Pupils: Equal, round and reactive pupils present EOM: EOMs intact bilaterally Neck Neck: Yes full ROM Resp Effort & Inspection: normal respiratory effort, able to speak in complete sentences, normal respiratory pattern, no audible wheezes and no cough Cardio Jugular venous distension: no JVD GI Inspection: Yes normal to inspection Back/Spine/Pelvis Other: She is able to stand on bilateral tiptoes in bilateral heels without any difficu lty. She is able to flex herself forward and flex herself backwards he reports flexing backwards aggravate her pain. She reports tenderness on palpation in projection of the sacral bone and lower lumbar spines. The tenderness in paraspinal and spinal region. She reports flexing sideways aggravate her pain as well. She denies Valsalva maneuver aggravates her pain. SLR is negative for typical pain in the back it aggravates pain in the back but does not make pain to radiate into bilateral lower extremities, the dorsiflexion at maximal SLR does not aggravate pain further without radiation of the pain into bilateral lower extremities. Ruddy test is equivocal bilaterally however pelvic compression test pelvic distraction test and Stinchfield tests are negative on initial exam. Lateral rotation of the hips does not cause discomfort in the groins. Neuro Cranial nerves: Yes Equal, round and reactive pupils present and Yes Normal hearing present Speech: No Abnormal speech present Gait exam (Neuro): Normal gait present Motor exam (neuro): 5/5 motor strength present throughout Sensory Exam: No Sensory deficit (Neuro) Extrem General: No pedal edema Psych Speech and movement: Normal speech and movement present Affect: normal affect Attitude: cooperative Thought process: Normal thought process present Thought content: Normal thought content present Insight: Good insight present (Psych) Judgement: Good judgement present (Psych) Results Reviewed Results Reviewed: R LUMBAR SPINE WITHOUT CONTRAST CLINICAL INFORMATION: Back pain, spasms, arthritis, spondylosis without myelopathy. No history of injury or fall. 58-year-old female. COMPARISON: No prior MR. Lumbar spine x-rays 06/18/2023. TECHNIQUE: Multiplanar multisequence MR imaging of the lumbar spine was done without IV contrast. 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 (Series 4, image 6 of 16). Sagittal Alignment: Normal lordosis. There is a 3 mm retrolisthesis of T11 on T12, likely secondary to the right-sided intervening hemivertebra. Trace retrolisthesis L2 on L3. Trace anterolisthesis L5 on S1. Lumbosacral Junction: Normal. There are 5 mll-bkh-[id number] lumbar-type vertebral bodies. 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 Counting from above recommended. Vertebral Bodies: As above. No additional compression deformities. Disc Spaces and Endplates: There are mild edematous and fatty type endplate changes present at T11-T12 with Schmorl's nodes present. Prominent Schmorl's node present in the superior endplate of L5. There are fatty type with minimal edematous type endplate changes at L5-S1. There is severe loss of disc height and signal at T11-T12. Mild loss of disc signal and height at L2-L3, and moderate to severe loss at L5-S1 with a small focus of disc vacuum phenomenon. Spinal Canal: Mild congenital and acquired narrowing is present at T11-T12 seen only on the sagittal images secondary to a diffuse disc bulge and the presence of the hemivertebra, which minimally indents upon the ventral distal cord without cord impingement. Mild to moderate central canal narrowing at this level with moderate to severe bilateral neural foraminal stenosis. Bone Marrow: No significant marrow-replacing process. Conus Medullaris: Terminates at L1 mid level. Morphology and signal is normal. Intradural Nerve Roots: Normal in appearance. Axial Disc Space Images: T11-T12: Seen only sagittally. See above. T12-L1: Seen only sagittally. Minimal diffuse disc bulge with no significant central canal or neural foraminal narrowing. Normal facets. L1-L2: There is a shallow diffuse disc bulge present, with a superimposed left foraminal protrusion of disc material. There are mild facet degenerative changes left greater than right. No central canal narrowing or subarticular recess narrowing of significance. Mild to moderate left neural foraminal narrowing. No right neural foraminal narrowing. L2-L3: Shallow diffuse disc bulge is present with superimposed left foraminal disc protrusion and right far lateral and foraminal disc protrusion which extends lateral to foramen. There is contact of the right greater than left traversing L3 roots without significant mass effect or impingement. There is mild central canal stenosis. There is mild degenerative facet change bilaterally with mild posterior ligamentous infolding/thickening. There is moderate right and mild left neural foraminal narrowing. L3-L4: Minimal central canal narrowing. Mild to moderate hypertrophic facet changes bilaterally with mild posterior ligamentous infolding/thickening. Resultant moderate right greater than left neural foraminal narrowing. L4-L5: Congenitally mildly hypoplastic left facet joint. Dominant right facet joint with hypertrophy from degenerative change. Facet osteophyte contacts and may impinge mildly the traversing right L5 root. There is minimal central canal narrowing. There is mild to moderate right and mild left neural foraminal narrowing. L5-S1: There is moderate bilateral hypertrophic facet changes bilaterally, with mild left facet tropism. Mild posterior ligamentous thickening is present. There is a diffuse disco osteophytic ridge complex present, with superimposed disco osteophytic extrusion right proximal foraminal 2 distal foraminal and lateral to foramen, and disc osteophytic extrusion left proximal foraminal and extending distal foraminal and lateral to foramen. Findings are resulting in minimal central canal stenosis, minimal right subarticular recess stenosis without definite mass effect upon the traversing S1 roots. There is severe left neural foraminal impingement, and moderate to severe right neural foraminal impingement. Paravertebral and Included Extraspinal Soft Tissues: Atrophy of the right kidney with a lobulated appearance is noted. There is a 2.5 cm cyst in the superior pole of the left kidney. The aorta is nonaneurysmal. The adrenal glands and paraspinous musculature demonstrate no suspicious abnormalities. No adenopathy is noted. There is degenerative arthrosis in both SI joints, particularly the synovial aspects. MR/MR lumbar spine wo con IMPRESSION: 1. Multilevel lumbar spondylosis most significant at L5-S1 as discussed above. No high-grade central canal or subarticular recess stenosis. There is severe left and moderate to severe right neural foraminal stenosis at L5-S1 with bilateral foraminal disc osteophytic extrusions. 2. Between T11 and T12 there is a right-sided somewhat posterior butterfly vertebra with a small right-sided rib. This may represents true T11 vertebral body however accounting from above is recommended. This results in a moderate dextroconvex scoliosis centered at T11-T12, and a disc bulge which indents upon the ventral spinal cord without high-grade impingement. 3. Severe disc degeneration at T11-T12, and L5-S1 with associated mild edematous endplate changes superimposed on fatty changes. 4. See the body of the report for detailed level and ancillary findings. Assessment & Plan Assessment & Plan (1) Idiopathic scoliosis of lumbar region: Code(s): M41.26 - Other idiopathic scoliosis, lumbar region Category: Medical (2) Spondylosis of lumbar region without myelopathy or radiculopathy: Code(s): M47.816 - Spondylosis without myelopathy or radiculopathy, lumbar region Category: Medical (3) Lower back pain: Code(s): M54.50 - Low back pain, unspecified Category: Medical (4) Vertebrogenic low back pain: Code(s): M54.51 - Vertebrogenic low back pain Category: Medical Plan This patient is already going on as a chronic pain without improvement for the past 4 months. She tried conservative measures including physical therapy NSAIDs and muscle relaxants those were not effective for her pain control. She tried application of the topical medications including lidocaine without success. Attention was attracted to vertebra genic pain syndrome demonstrated by MRI at L5-S1 intervertebral interval. I will schedule her for this procedure. It will be done under general anesthesia. Patient Instructions: I here by testify that I spent 30 minutes in conversation with this patient as well as evaluating her prior records diagnostic studies and diagnostic images as well as planning her care and organizing this note. Coding Level of Care Code Est Pt Level 4 (20594) Diagnoses Idiopathic scoliosis of lumbar region M41.26 Spondylosis of lumbar region without myelopathy or radiculopathy M47.816 Lower back pain M54.50 Vertebrogenic low back pain M54.51
[2023-08-28 13:14] VITALS: BP 126/60; PULSE 102; RESP 16; O2SAT 98; BMI 35.0
== END 2023-08-28 13:34 | disposition home or self-care (01) ==
PROVIDERS: PCP Internal Medicine; Visit Provider Anesthesiology
DX: M41.26 Other idiopathic scoliosis, lumbar region (principal); M47.816 Spondylosis without myelopathy or radiculopathy, lumbar region; M54.50 Low back pain, unspecified; M54.51 Vertebrogenic low back pain
CPT/HCPCS: 99214

== ENCOUNTER → 2023-08-28 13:02 | Outpatient (BNVA) | payer OTHER, SELFPAY | PROVIDERS: PCP Internal Medicine; Visit Provider Anesthesiology | DX: M41.26 Other idiopathic scoliosis, lumbar region (principal); M47.816 Spondylosis without myelopathy or radiculopathy, lumbar region; M54.51 Vertebrogenic low back pain | CPT/HCPCS: 99212 ==

== ENCOUNTER 2023-09-19 12:50 | Outpatient (REF) | payer OTHER, SELFPAY ==
--- NOTE | ~2023-09-19 | US_ITS ---
EXAMINATION:US pelvic and transvaginal CLINICAL INFORMATION: Reason for Exam D25.9 - Leiomyoma of uterus, unspecified COMPARISON: Prior ultrasound January 2023 LMP: 2 weeks ago FINDINGS: UTERUS: The uterus is anteverted. Size: 11.1 x 6.2 x 7.4 cm. Uterine mass: Intramural uterine mass likely fibroid 2 x 1.5 x 1.3 cm and 2.6 x 1.4 x 2 cm, one of which newly found on today's exam the other has not significantly changed. Cervix: There are nabothian cysts otherwise Grossly unremarkable. Endometrium: No ultrasound evidence of endometrial lesion. endometrial thickness measures 1.5 cm echogenic structure within the endometrium 2.2 x 1.1 x 1.8 cm raising concern for possible small lesion including possibly a polyp. ADNEXA: Normal Right ovary: Normal in size. Left ovary: Normal in size. There are small follicles the largest measure up to 1.9 cm. Doppler exam: Normal Doppler flow identified in both ovaries. FREE FLUID: Trace amount of free fluid. OTHER FINDINGS: None US/US pelvic and transvaginal IMPRESSION: 1. There are 2 intramural uterine masses likely fibroids one of which was newly found on today's exam the other has not significantly changed. 2. There is echogenic 2.2 cm structure within the endometrium raising concern for possible endometrial lesion including possibly a polyp. Attention to follow-up recommended. Consider correlation with follow-up ultrasound in 6 weeks.
== END 2023-09-19 12:51 | disposition home or self-care (01) ==
LOC: HO.US 12:50
PROVIDERS: PCP Internal Medicine; Visit Provider Obstetrics & Gynecology
DX: D25.9 Leiomyoma of uterus, unspecified (principal)
CPT/HCPCS: 76830; 76856

== ENCOUNTER 2023-10-09 10:23 | Outpatient (AMB) | payer OTHER, SELFPAY ==
--- NOTE | 2023-10-09 10:27 | MHC.OFFVIS ---
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 Size: 11.1 x 6.2 x 7.4 cm. Uterine mass: Intramural uterine mass likely fibroid 2 x 1.5 x 1.3 cm and 2.6 x 1.4 x 2 cm, one of which newly found on today's exam the other has not significantly changed. Cervix: There are nabothian cysts otherwise Grossly unremarkable. Endometrium: No ultrasound evidence of endometrial lesion. endometrial thickness measures 1.5 cm echogenic structure within the endometrium 2.2 x 1.1 x 1.8 cm raising concern for possible small lesion including possibly a polyp. ADNEXA: Normal Right ovary: Normal in size. Left ovary: Normal in size. There are small follicles the largest measure up to 1.9 cm. Doppler exam: Normal Doppler flow identified in both ovaries. FREE FLUID: Trace amount of free fluid. OTHER FINDINGS: None The patien continues to have abnormal irregular menstrual cycles since last visit. Last EMB in 03/20 showed inactive endometrium with no evidence of endometrial hyperplasia and/or malignancy Last co testing in 11/17 was negative [facility] Medical History Asthma Diabetes mellitus, type 2 Hypercholesteremia Hypertension Surgical History Hx of dilation and curettage Family History Brother Diabetes Pancreatic cancer Mother Diabetes Social History Household Members: Spouse and Children Housing: Apartment Alcohol intake: current Alcohol intake frequency: holidays/special occasions only Patient Tobacco Use Status: Former Tobacco user Current occupational status: unemployed Sexual orientation: Straight/Heterosexual Gender identity: Female Review of Systems Const All systems reviewed & are unremarkable except as noted in HPI and below Reports as per HPI and Reports no additional complaints GI Reports no additional complaints Reports no additional complaints Physical Exam Vital Signs: BMI result Body Mass Index 34.8 Office Procedures Endometrial Biopsy Details: The patient was counseled regarding the indication and benefits of endometrial sampling to rule out endometrial pathology including not limited to endometrial hyperplasia or endometrial cancer and others; The alternatives (Either do nothing vs. hysteroscopy D&C) & the risks were discussed with the patient including but not limited: pain, uterine perforation, bleeding, infection, possible injury to bladder, bowel, ureter, possible need for blood transfusion with all its possible risks. The patient verbalized understanding all questions answered and signed consent. The patient was placed into the dorsal lithotomy position; a speculum was inserted in the vagina. Using aseptic technique for the procedure, the cervix was cleansed with Betadine. The anterior lip of the cervix was grasped with a single tooth tenaculum. The uterus was sounded to 7 cm with a 4 mm Pipelle was used. Tissues samples were obtained and placed in formalin, in a patient labeled container and sent to the pathology department. At the end of the procedure, there was minimal bleeding noted The patient tolerated the procedure well and was discharged in good condition with the following instructions: Nothing in the vagina until the bleeding stops. No sex until the bleeding stops, to call if any of the following occurs: fever (>100.4), flu-like symptoms, abdominal pain, heavy bleeding, four smelling vaginal discharge. The patient was instructed to schedule a Follow up appointment in 2 weeks to discuss pathology results of the biopsy and treatment options. This note was generated with a voice recognition program. Some errors may have been overlooked during the review of this note. Sometimes these errors may affect the content or meaning of a given sentence. [id number] Biopsy Assessment & Plan Assessment & Plan (1) Uterine myoma: Code(s): D25.9 - Leiomyoma of uterus, unspecified Category: Medical Plan: Discussed with the patient the results of the ultrasound and the size of the myomas. Discussed with the patien options of treatment for myomas including: Serial ultrasounds periodically to follow-up on the size of the myoma while targeting the treatment against fibroids related symptoms (hormonal treatment, uterine artery embolization ) versus surgical treatment including hysterectomy. All pros and cons, risks and benefits of all options were discussed with the patient. The patient decided to proceed with surgical management. EMB done and will refer to minimally invasive protective signal superintendent surgery for hysterectomy (2) Abnormal uterine bleeding: Comment: Abnormal endometrium by ultrasound Code(s): N93.9 - Abnormal uterine and vaginal bleeding, unspecified Category: Medical Plan: Discussed with the patient the pelvic ultrasound findings, the endometrial stripe thickenss a 1.5 cm measured by ultrasound which is was more than 4mm in addition to possible endometrial polyp. The negative predictive value, positive predictive value, Sensitivity, specificity of using ultrasound measurement of endometrial stripe to detecting endometrial pathology including hyperplasia , polyp or cancer were discussed with the patient. Recommended to the patient that the next step is an endometrial sampling via hysteroscopy D&C possible polypectomy versus endometrial biopsy to r/o endometrial pathology including hyperplasia or cancer. All the pros and cons risks and benefits of each approach were discussed with the patient, endometrial biopsy being less invasive, office procedure with less sensitivity and inability diagnose a polyp and removal versus hysteroscopy done under anesthesia more invasive more sensitive to endometrial cancer and possibility of diagnosing and endometrial polyp with the possibility of polypectomy. All questions were answered pt verbalized understanding and decided to proceed with endometrial biopsy, EMB done, see procedure note The patient is interested in surgical management for her abnormal bleeding and uterine myomas. Discussed with the patient the different types of hysterectomies including, vaginal, laparoscopic assisted vaginal, robotic assisted laparoscopic,& abdominal with BSO. All pros, cons, r/b of each approach were discussed the patient including evidence that morbidity is less and recovery is shorter with minimally invasive approaches to hysterectomy. Discussed with the patient the lack of availability of the robot Twicketerinci robot and/or minimally invasive plumber and tinner specialist at [facility]. Will refer the patient to minimally invasive protective signal superintendent surgery at [facility]. Orders: Orders Surgical Today N84.0 - Polyp of corpus uteri AMB Endometrial Biopsy Today N93.9 - Abnormal uterine and vaginal bleeding, unspecified Coding Level of Care Code Est Pt Level 3 (09759) Procedure Only Diagnoses Uterine myoma D25.9 Abnormal uterine bleeding N93.9 CPT Codes Endometrial Biopsy - CPT: 02231-[id number] Biopsy ([id number])
[2023-10-09 10:28] VITALS: BMI 34.8
== END 2023-10-09 11:13 | disposition home or self-care (01) ==
PROVIDERS: PCP Internal Medicine; Visit Provider Obstetrics & Gynecology
DX: D25.9 Leiomyoma of uterus, unspecified (principal); N93.9 Abnormal uterine and vaginal bleeding, unspecified
CPT/HCPCS: 58100; 99213

== ENCOUNTER 2023-10-09 10:23 | Outpatient (REF) | payer OTHER, SELFPAY | END 2023-10-09 10:24 | disposition home or self-care (01) | LOC: HO.LNP 10:23 | PROVIDERS: PCP Internal Medicine; Visit Provider Obstetrics & Gynecology | DX: N84.0 Polyp of corpus uteri (principal); N93.9 Abnormal uterine and vaginal bleeding, unspecified; D25.9 Leiomyoma of uterus, unspecified | CPT/HCPCS: 58100; 88305; 99212 ==

== ENCOUNTER 2023-10-14 13:12 | Outpatient (AMB) | payer OTHER, SELFPAY ==
--- NOTE | 2023-10-14 13:13 | A.OFFVIS_ITS ---
Intake Visit Reasons: EMB results Allergies DUST Allergy (Unknown, Uncoded 06/18/23 07:44) SHORTNESS OF BREATH HPI Comments Details: The patient schedule telehealth visit after endometrial biopsy. The patient has no complaints, no vaginal bleeding, no feverishness chills or abdominal pain. The endometrial biopsy pathology report showed the following: Endometrium, biopsy: Benign weakly proliferative endometrium with focal breakdown, and benign endocervical glandular and squamous epithelium; no atypia or carcinoma. Comment: Some fragments may be derived from benign polyps [facility] Medical History Asthma Diabetes mellitus, type 2 Hypercholesteremia Hypertension Surgical History Hx of dilation and curettage Family History Brother Diabetes Pancreatic cancer Mother Diabetes Social History Household Members: Spouse and Children Housing: Apartment Alcohol intake: current Alcohol intake frequency: holidays/special occasions only Patient Tobacco Use Status: Former Tobacco user Current occupational status: unemployed Sexual orientation: Straight/Heterosexual Gender identity: Female Review of Systems Const All systems reviewed & are unremarkable except as noted in HPI and below Reports as per HPI and Reports no additional complaints GI Reports no additional complaints Reports no additional complaints Telehealth Telehealth Telehealth Platform: Telephone Location of provider rendering services: practice address Location of patient: address on file Patient Identification confirmed using: Name, : Yes Telehealth method: video Patient verbally consented to treatment: Yes Patient verbally consented to billing insurance company: Yes Patient informed of any privacy concerns related to visit: Yes Assessment & Plan Assessment & Plan (1) Endometrial polyp: Comment: proliferative endo on emb Code(s): N84.0 - Polyp of corpus uteri Category: Medical Plan: Discussed with the patient the results the pathology showing proliferative endometrium and fragments of endometrial polyp,the patient was referred to minimally invasive clerical and administrative workers for definitive surgical treatment, hysterectomy BSO for the treatment of continuous vaginal bleeding/ fibroids. Instructed the patient to call our office back in case a referral appointment is not scheduled, missed or canceled so that we will assist on rescheduling another appointment, the patient verbalized understanding agreed with the plan. I spent a total of 20 minutes reviewing the chart, talking to the patient via video and documenting in the medical record. Coding Level of Care Code Tele Est Pt Level 1 (72401) Diagnoses Endometrial polyp N84.0
== END 2023-10-14 16:39 | disposition home or self-care (01) ==
LOC: HO.HWS 13:12
PROVIDERS: PCP Internal Medicine; Visit Provider Obstetrics & Gynecology
DX: N84.0 Polyp of corpus uteri (principal)
CPT/HCPCS: 99211

== ENCOUNTER → 2023-10-14 13:12 | Outpatient (BNVA) | payer OTHER, SELFPAY | PROVIDERS: PCP Internal Medicine; Visit Provider Obstetrics & Gynecology ==

== ENCOUNTER 2023-11-02 09:12 | Outpatient (REF) | payer OTHER, SELFPAY ==
[2023-11-02 09:30] LABS: MANUAL DIFF FLAG NO
[2023-11-02 10:17] LABS: Basophils Percent Auto 0.6 % (0-2); Eosinophils Absolute Auto 0.3 X10*3/uL (0.0-0.4); Eosinophils Percent Auto 4.4 % (0-4); Hematocrit 42.9 % (37.0-47.0); Hemoglobin 13.8 g/dl (12.0-16.0); Imm Gran Abs Auto 0.02 X10*3/uL (0.00-0.03); Imm Gran Pct Auto 0.3 % (0.0-0.4); Lymphocytes Absolute Auto 1.9 X10*3/uL (1.2-4.9); Mean Corpuscular HGB Conc 32.2 g/dl (31.0-35.0); Mean Corpuscular Hemoglobin 29.9 pg (27.0-33.0); Mean Corpuscular Volume 92.9 fL (80.0-98.0); Monocytes Absolute Auto 0.6 X10*3/uL (0.1-1.2); Monocytes Percent Auto 8.9 % (2-11); Neutrophils Absolute Auto 3.8 x10*3/uL (2.0-8.3); Neutrophils Percent Auto 56.8 % (45-73); Platelet Count 318 X10*3/uL (160-400); Red Blood Count 4.62 X10*6/uL (4.20-5.50); Red Cell Distribution Width 13.2 % (11.0-16.0); White Blood Count 6.6 X10*3/uL (4.8-10.8)
[2023-11-02 11:05] LABS: Alanine Aminotransferase 21 U/L (0-31); Alkaline Phosphatase 76 U/L (39-117); Anion Gap 12 (12-20); Aspartate Amino Transferase 20 U/L (5-31); Bilirubin Total 0.5 mg/dL (0.0-1.0); Blood Urea Nitrogen 19 mg/dL (9-16); Calcium 10.3 mg/dL (8.4-10.2); Carbon Dioxide 23 mmol/L (22-29); Chloride 112 mmol/L (96-108); Estimated Glomerular Filt Rate 53; Glucose Random 92 mg/dL (60-115); Potassium 4.2 mmol/L (3.3-5.1); Sodium 143 mmol/L (135-145); Total Protein 6.9 g/dL (6.5-8.0)
[2023-11-02 11:22] LABS: Ferritin 19 ng/mL (10-250)
== END 2023-11-02 09:13 | disposition home or self-care (01) ==
LOC: HO.LAB 09:12
PROVIDERS: PCP Internal Medicine; Visit Provider Internal Medicine
DX: D64.89 Other specified anemias (principal); E78.00 Pure hypercholesterolemia, unspecified; F43.12 Post-traumatic stress disorder, chronic; I10 Essential (primary) hypertension; J45.909 Unspecified asthma, uncomplicated
CPT/HCPCS: 36415; 80053; 82728; 85025

== ENCOUNTER 2023-11-09 14:41 | Emergency (ER) | payer OTHER, SELFPAY ==
--- NOTE | ~2023-11-09 | XR_ITS ---
EXAMINATION: XR KNEE, RIGHT CLINICAL INFORMATION: Right knee pain COMPARISON: None available. TECHNIQUE: Four views of the right knee. FINDINGS: No fracture. Noted joint space narrowing. Small marginal osteophytes in the medial compartment. No joint effusion. XR/XR knee RT 4V IMPRESSION: Mild medial compartment osteoarthritis. No acute osseous abnormality. Electronically signed by: Fox Louise MD 11/09/2023 03:33 PM EDT
[2023-11-09 14:53] VITALS: BP 114/63; PULSE 106; RESP 18; TEMP 36.9; O2SAT 97; BMI 35.3
--- NOTE | 2023-11-09 14:54 | ED_ITS ---
HPI - Extremity Problem General Chief complaint: Extremity Injury, Lower Stated complaint: r knee pain Time Seen by Provider: 11/09/23 15:14 Source: patient Mode of arrival: ambulatory Limitations: no limitations History of Present Illness ED Provider: Criss Mock PA-c HPI Narrative: Patient is a 58 year old assigned female at with a history of chronic lower back pain presenting to the emergency department today with right knee pain. Patient states that over the last month her right knee has been having pain. Patient denies any dizziness, lightheadedness, abdominal pain, nausea, vomiting, fever, chills, blurry vision, double vision, loss of vision, chest pain, difficulty breathing, shortness of breath, night sweats, pain with urination, increased urinary frequency, increased urinary urgency, blood in her urine or stool, syncope or a near syncopal episode, recent trauma or falls, bowel incontinence, bladder incontinence, or any other complaints at this time. MD Complaint: extremity pain Onset (ago): month(s) (1) Pain Consistency: constant Location: right and knee Relieving factors: nothing Exacerbating factors: nothing Associated symptoms: denies other symptoms Related Data Home Medications ?Medication ?Instructions ?Recorded ?Confirmed bupropion HCl 300 mg 24 hr tablet, 300 mg PO DAILY 01/07/23 extended release losartan 50 mg tablet 50 mg PO DAILY 01/07/23 simvastatin 40 mg tablet 40 mg PO BEDTIME 01/07/23 topiramate 100 mg tablet 100 mg PO DAILY 01/07/23 Previous Rx's ?Medication ?Instructions ?Recorded cyclobenzaprine 10 mg tablet 10 mg PO TID PRN muscle spasm #20 06/18/23 tabs lidocaine 5 % topical patch 1 patch topical DAILY #30 ea 06/18/23 prednisone 20 mg tablet 20 mg PO DAILY 7 days #7 tabs 11/09/23 Allergies Allergy/AdvReac Type Severity Reaction Status Date / Time DUST Allergy Unknown SHORTNESS Uncoded 11/09/23 14:55 OF BREATH Review of Systems Constitutional: Constitutional: Reports no additional constitutional co mplaints, Denies chills, Denies fever(s) and Denies night sweats Eyes: Eyes: Reports no additional eye complaints, Denies blurry vision, Denies change in vision, Denies diplopia, Denies eye discharge, Denies loss of vision and Denies eye pain ENT: Denies dizziness Cardiovascular: Cardiovascular: Reports no additional cardiovascular complaints, Denies chest pain, Denies lightheadedness, Denies Loss of Consciousness and Denies dyspnea Respiratory: Respiratory: Reports no additional respiratory complaints and Denies dyspnea Gastrointestinal: Gastrointestinal: Reports no additional gastrointestinal complaints, Denies abdominal pain, Denies melena, Denies hematochezia, Denies change in bowel habits and Denies change in stool character Genitourinary: Genitourinary: Denies hematuria, Denies urinary frequency, Denies dysuria, Denies urinary incontinence, Denies urinary hesitancy and Denies urinary urgency Musculoskeletal: Musculoskeletal: Reports no additional musculoskeletal complaints, Denies numbness and Denies tingling Comments: right knee pain Neurologic: Denies dizziness, Denies loss of vision, Denies numbness and Denies tingling Psychiatric: Psychiatric: Reports no additional psychiatric complaints Endocrine: Endocrine: Reports no additional endocrine complaints Hematologic/Lymphatic: Hematologic/Lymphatic: Reports no additional hematologic/lymphatic complaints Allergic/Immunologic: Allergic/Immunologic: Reports no additional allergic/immunologic complaints PMF Past Medical History Attestation statement: The following information was validated with the patient. Source: old records reviewed and nursing notes reviewed Medical History Asthma Diabetes mellitus, type 2 Hypercholesteremia Hypertension Surgical History Hx of dilation and curettage Family History Family History Brother Diabetes Pancreatic cancer Mother Diabetes Social History Social History Household Members: Spouse and Children Housing: Apartment Alcohol intake: current Alcohol intake frequency: holidays/special occasions only Patient Tobacco Use Status: Former Tobacco user Advance Directives: No Advance Directives Information Provided: No Do you have a plan to hurt others: No Plan Current occupational status: unemployed Sexual orientation: Straight/Heterosexual Gender identity: Female Physical Exam Vital Signs: Vital Signs: Last Vital Signs Temp 98.5 F 11/09/23 16:05 Pulse 106 H 11/09/23 16:05 Resp 18 11/09/23 16:05 BP 114/63 11/09/23 16:05 Pulse Ox 97 11/09/23 16:05 O2 Del Method Room Air 11/09/23 16:05 BMI result Body Mass Index 35.3 Const: General: cooperative, no acute distress, alert and awake Nutritional Appearance: well nourished Orientation/consciousness: patient oriented x3 Limitations: no limitations HEENT: Head: Yes normal to inspection and Yes atraumatic Ears: hearing grossly normal bilaterally and external ears normal General nose exam: Normal external nose present, no nasal discharge noted and no epistaxis Face and sinus: Yes normal facial exam, No abrasion and No laceration Mouth: Normal oral and palatal mucosa present, no drooling and no muffled voice Eyes: General: appearance normal, both eyes and all related structures Periorbital: periorbital findings normal Eyelids: Yes eyelids normal Conjunctivae: conjunctivae normal Pupils: Equal, round and reactive pupils present EOM: EOMs intact bilaterally Neck: Neck: Yes normal visual inspection, Yes full ROM and Yes no lymphadenopathy Chest: Chest palpation & inspection: normal inspection of the chest Resp: Effort & Inspection: normal respiratory effort and able to speak in complete sentences GI: Inspection: Yes normal to inspection Neuro: General: patient oriented x3 and moves all extremities Cranial nerves: Yes Equal, round and reactive pupils present Cognition (Neuro): normal cognition Extrem: General: Yes normal to inspection, Yes full ROM and Yes capillary refill normal Psych: Appearance: grossly normal Mental Status: mental status grossly normal Affect: normal affect Attitude: cooperative Thought process: Normal thought process present Thought content: Normal thought content present Insight: Good insight present (Psych) Course Course Course Narrative: This is an RME performed by Glenys Peraza CNP: Additional HPI, ROS, PE not included below will be deferred to primary provider. Patient is a 58-year-old female who presents to the emergency department for evaluation of right knee pain, no precipitating injury, progressively worsening for one month. She has tried Lidoderm patches and 500 mg and acetaminophen arthritis with no relief. Medical Decision Making Medical Decision Making MDM Narrative: Patient is a 58 year old assigned female at with a history of chronic back pain presenting to the emergency department today with right knee pain. Patient's physical exam was unremarkable. Patient's right knee x-ray showed arthritis but was otherwise unremarkable. I explained my physical exam findings as well as all test results to the patient. I answered all questions asked by the patient. I stressed the importance of the patient taking her medication as directed (either prescribed or as the over the counter packaging recommends). I stressed the importance of the patient following up with her primary care provider and an orthopedic provider. I stressed the importance of the patient returning to the emergency department immediately if her symptoms were to worsen or if she were to develop any dizziness, shortness of breath, difficulty ava athing, chest pain, blurry vision, loss of vision, nausea, vomiting, abdominal pain, fever, chills, back pain, or any other complaints. Patient verbalized agreement and understanding with this treatment plan and discharge. Differential Diagnosis Differential Diagnoses: The differential diagnosis associated with the presentation includes Right knee OA Right knee pain Admission/Observation Consideration of admission/observation: Escalation of care including admiss ion/observation considered Patient would have been admitted to the hospital had her work up had any findings where hospital admission was appropriate and her clinical presentation warranted hospital admission. Independent Interpretation I performed an independent interpretation of an: Plain X-Ray Interpretation: My interpretation is in agreement with the radiologist's impression of this imaging study. EXAMINATION: XR KNEE, RIGHT CLINICAL INFORMATION: Right knee pain COMPARISON: None available. TECHNIQUE: Four views of the right knee. FINDINGS: No fracture. Noted joint space narrowing. Small marginal osteophytes in the medial compartment. No joint effusion. XR/XR knee RT 4V IMPRESSION: Mild medial compartment osteoarthritis. No acute osseous abnormality. Electronically signed by: Fox Louise MD 11/09/2023 03:33 PM EDT RP Dictated By: Fox Louise MD Signed By: Electronically signed by Fox Louise MD 11/09/23 1533 Radiology Impression Discussion of test interpretation with radiology: I have reviewed the radiologist's reading. Discharge Plan Discharge Clinical Impression: Knee osteoarthritis Patient Disposition: Home, Self-Care Instructions: Osteoarthritis (DC) Additional Instructions: Follow up with your primary care provider and an orthopedic provider. Return to the emergency department immediately if your symptoms worsen or if you develop any dizziness, shortness of breath, difficulty breathing, chest pain, blurry vision, loss of vision, nausea, vomiting, abdominal pain, fever, chills, back pain, or any other complaints. Prescriptions: New prednisone 20 mg tablet 20 mg PO DAILY 7 Days Qty: 7 0RF No Action cyclobenzaprine 10 mg tablet 10 mg PO TID PRN (Reason: muscle spasm) Qty: 20 0RF lidocaine 5 % adhesive patch,medicated 1 patch topical DAILY Qty: 30 0RF Rx Instructions: leave on most painful area for up to 12 hrs topiramate 100 mg tablet 100 mg PO DAILY losartan 50 mg tablet 50 mg PO DAILY bupropion HCl 300 mg tablet extended release 24 hr 300 mg PO DAILY simvastatin 40 mg tablet 40 mg PO BEDTIME Referrals: [facility] [Provider Group] (Call to establish and follow up with an hearing specialist. ) Kassi Trejo MD [Primary Care Provider] - Interventions: ED Discharge Assessment Last Done: 11/09/23 16:05 Print Language: Namibian
[2023-11-09 16:05] VITALS: BP 114/63; PULSE 106; RESP 18; TEMP 36.9; O2SAT 97
[2023-11-09] MEDS: methylPREDNISolone Sod Succ 125 MG/2 ML VIAL 60 MG IM (16:08)
== END 2023-11-09 16:15 | disposition home or self-care (01) ==
PROVIDERS: Emergency Provider Emergency Medicine; PCP Internal Medicine
DX: M17.11 Unilateral primary osteoarthritis, right knee (principal); M25.561 Pain in right knee; E11.9 Type 2 diabetes mellitus without complications; E78.00 Pure hypercholesterolemia, unspecified; I10 Essential (primary) hypertension; J45.909 Unspecified asthma, uncomplicated; Z87.891 Personal history of nicotine dependence; Z79.02 Long term (current) use of antithrombotics/antiplatelets; Z79.899 Other long term (current) drug therapy
CPT/HCPCS: 73564; 96372; 99282; 99284; J2919

== ENCOUNTER 2023-11-11 07:54 | Outpatient (REF) | payer OTHER, SELFPAY ==
--- NOTE | ~2023-11-11 | MM_ITS ---
EXAMINATION: MM SCREENING DIGITAL BREAST TOMOSYNTHESIS, BILATERAL CLINICAL INFORMATION: Screening. Asymptomatic. COMPARISON: Mammography: Comparison is made with available priors TECHNIQUE: Digital breast mammography with tomosynthesis is performed in both the craniocaudal and mediolateral oblique views along with computer-aided detection (CAD). FINDINGS: There are scattered areas of fibroglandular density (ACR BI-RADS breast composition Category b). There are no significant masses, abnormal calcifications, or other abnormalities. MM/MM tomosynthesis screening BI IMPRESSION: No mammographic evidence of malignancy. ASSESSMENT: BI-RADS BI-RADS 1 - Negative RECOMMENDATION: Routine annual mammography screening. 1 year F/U This examination should not preclude the clinical evaluation of a suspicious palpable abnormality. This patient's information was entered into a reminder system with a target due date for their next mammogram. Electronically signed by: Celia Coleman DO 11/22/2023 09:12 AM EDT
== END 2023-11-11 07:55 | disposition home or self-care (01) ==
LOC: HO.MAMMO 07:54
PROVIDERS: PCP Internal Medicine; Visit Provider Internal Medicine
DX: Z12.31 Encounter for screening mammogram for malignant neoplasm of breast (principal)
CPT/HCPCS: 77063; 77067

== ENCOUNTER → 2023-11-11 08:00 | Outpatient (BNV) | payer OTHER, SELFPAY | PROVIDERS: PCP Internal Medicine; Visit Provider Internal Medicine | DX: Z12.31 Encounter for screening mammogram for malignant neoplasm of breast (principal) | CPT/HCPCS: 77063; 77067 ==

== ENCOUNTER 2023-11-14 21:25 | Emergency (ER) | payer OTHER, SELFPAY ==
[2023-11-14 21:39] VITALS: BP 149/71; PULSE 100; RESP 20; TEMP 37.2; O2SAT 97; BMI 34.9
[2023-11-14 22:47] VITALS: BP 123/75; PULSE 87; RESP 20; TEMP 37; O2SAT 97
[2023-11-15] MEDS: Morphine Sulfate Immed Release 15 MG TABLET PO (00:33)
[2023-11-15 00:45] VITALS: BP 117/68; PULSE 88; RESP 20; TEMP 36.8; O2SAT 99
[2023-11-15 00:46] VITALS: BP 117/68; PULSE 88; RESP 20; TEMP 36.8; O2SAT 99
--- NOTE | 2023-11-15 00:58 | ED_ITS ---
HPI - Back Pain/Injury General Chief Complaint: Back Pain/Injury Stated Complaint: lower back pain Time Seen by Provider: 11/14/23 23:16 Source: patient Mode of arrival: ambulatory Limitations: no limitations History of Present Illness ED Provider: lilo PIERRE Narrative: Patient is here chronic back pain been seen by pain clinic and PCP unable to get further management because of insurance reasons comes here as pain is getting worse painful to walk no radiation of pain to the lower extremities patient is applying lidocaine patch without much relief Related Data Home Medications ?Medication ?Instructions ?Recorded ?Confirmed bupropion HCl 300 mg 24 hr tablet, 300 mg PO DAILY 01/07/23 extended release losartan 50 mg tablet 50 mg PO DAILY 01/07/23 simvastatin 40 mg tablet 40 mg PO BEDTIME 01/07/23 topiramate 100 mg tablet 100 mg PO DAILY 01/07/23 Previous Rx's ?Medication ?Instructions ?Recorded cyclobenzaprine 10 mg tablet 10 mg PO TID PRN muscle spasm #20 06/18/23 tabs lidocaine 5 % topical patch 1 patch topical DAILY #30 ea 06/18/23 prednisone 20 mg tablet 20 mg PO DAILY 7 days #7 tabs 11/09/23 cyclobenzaprine 10 mg tablet 10 mg PO Q8H #20 tabs 11/15/23 oxycodone 5 mg tablet 5 mg PO Q6H PRN pain #20 tabs 11/15/23 Allergies Allergy/AdvReac Type Severity Reaction Status Date / Time DUST Allergy Unknown SHORTNESS Uncoded 11/14/23 21:44 OF BREATH Review of Systems Review of Systems: Yes all other systems are reviewed and are negative [facility] Past Medical History Medical History Asthma Diabetes mellitus, type 2 Hypercholesteremia Hypertension Surgical History Hx of dilation and curettage Family History Family History Brother Diabetes Pancreatic cancer Mother Diabetes Social History Social History Household Members: Spouse and Children Housing: Apartment Alcohol intake: current Alcohol intake frequency: holidays/special occasions only Patient Tobacco Use Status: Former Tobacco user Smoked in Last 30 Days: No Advance Directives: No Advance Directives Information Provided: No Patient : No Current occupational status: unemployed Sexual orientation: Straight/Heterosexual Gender identity: Female Physical Exam Vital Signs: Vital Signs: Last Vital Signs Temp 98.2 F 11/15/23 00:46 Pulse 88 11/15/23 00:46 Resp 20 11/15/23 00:46 BP 117/68 11/15/23 00:46 Pulse Ox 99 11/15/23 00:46 O2 Del Method Room Air 11/14/23 22:47 BMI result Body Mass Index 34.9 Appearance: Alert. Oriented X3. No acute distress. Eyes: PERRLA, No Nystagmus ENT: Pharynx normal. Oral Mucosa moist Neck: Normal inspection. Neck supple. CVS: Normal heart rate and rhythm. Pulses normal. Respiratory: No respiratory distress. Equal air entry bilateral, Abdomen: Soft and nontender. Bowel sounds are present, no mass palpable, no CVA tenderness back: Diffuse tenderness lumbar area no focal bony tenderness deep tendon reflexes are 2+ SLR negative sacral sensation intact Skin: Skin warm and dry. Normal skin color. Normal skin turgor. Extremities: No lower extremity edema. No calf tenderness Neuro: Oriented X 3. No motor deficit. Medications Administered Discontinued Medications Generic Name Dose Route Start Last Admin Trade Name Freq PRN Reason Stop Dose Admin Morphine Sulfate 15 mg 11/15/23 00:11 11/15/23 00:33 Morphine Sulfate Immed Release 15 Mg Tablet PO 11/15/23 00:12 15 mg ONCE ONE Administration Medical Decision Making Medical Decision Making MDM Narrative: Patient with chronic low back pain does have a pain specialist follow will give oxycodone at this time no signs of spinal cord injury or involvement Discharge Plan Discharge Clinical Impression: Chronic back pain Patient Disposition: Home, Self-Care Instructions: Chronic Back Pain (DC) Additional Instructions: Take pain medication muscle relaxant as prescribed Follow up your pain clinic Prescriptions: New cyclobenzaprine 10 mg tablet 10 mg PO Q8H Qty: 20 0RF oxycodone 5 mg tablet 5 mg PO Q6H PRN (Reason: pain) Qty: 20 0RF Rx Instructions: Partial Fill upon patient request. No Action cyclobenzaprine 10 mg tablet 10 mg PO TID PRN (Reason: muscle spasm) Qty: 20 0RF lidocaine 5 % adhesive patch,medicated 1 patch topical DAILY Qty: 30 0RF Rx Instructions: leave on most painful area for up to 12 hrs prednisone 20 mg tablet 20 mg PO DAILY 7 Days Qty: 7 0RF topiramate 100 mg tablet 100 mg PO DAILY losartan 50 mg tablet 50 mg PO DAILY bupropion HCl 300 mg tablet extended release 24 hr 300 mg PO DAILY simvastatin 40 mg tablet 40 mg PO BEDTIME Interventions: ED Discharge Assessment Last Done: 11/15/23 00:46 Discharge Date/Time: 11/15/23 00:47 Print Language: Romansh
== END 2023-11-15 00:47 | disposition home or self-care (01) ==
PROVIDERS: Emergency Provider Internal Medicine; PCP Internal Medicine
DX: G89.29 Other chronic pain (principal); M54.50 Low back pain, unspecified; E11.9 Type 2 diabetes mellitus without complications; I10 Essential (primary) hypertension; E78.00 Pure hypercholesterolemia, unspecified; J45.909 Unspecified asthma, uncomplicated; Z79.02 Long term (current) use of antithrombotics/antiplatelets; Z79.899 Other long term (current) drug therapy
CPT/HCPCS: 99283; 99284

== ENCOUNTER 2024-01-11 09:47 | Emergency (ER) | payer OTHER, SELFPAY ==
--- NOTE | ~2024-01-11 | XR_ITS ---
EXAMINATION: XR KNEE, RIGHT CLINICAL INFORMATION: The COMPARISON: None available. TECHNIQUE: AP, lateral, and both oblique views of the right knee. FINDINGS: Bony alignment and mineralization are normal. The lateral, medial and patellofemoral joint space compartments are well-maintained. There is minimal tricompartment peripheral osteophyte formation. No fracture, dislocation or joint effusion is seen. There is no foreign body. XR/XR knee RT 4V IMPRESSION: 1. No fracture, dislocation or right knee joint effusion is seen. 2. There is minimal tricompartment peripheral osteophyte formation. Electronically signed by: Wyatt Harmon MD 01/11/2024 12:20 PM [facility]
[2024-01-11 09:54] VITALS: BP 125/76; PULSE 101; RESP 18; TEMP 36.9; O2SAT 97; BMI 36.6
--- NOTE | 2024-01-11 11:06 | ED.EXTPRO ---
HPI - Extremity Problem General Chief complaint: Extremity Problem Stated complaint: R knee pain Time Seen by Provider: 01/11/24 11:06 Source: patient and RN notes reviewed Mode of arrival: ambulatory Limitations: no limitations History of Present Illness ED Provider: Melinda Conteh PA-C HPI Narrative: This is a 58-year-old female, with a history of arthritis, and chronic right knee pain, who presents emergency department with ongoing right knee pain. Patient has been seen here multiple times for the similar complaint. She states that she has been taking [id number] pain medication, without any relief. No new trauma or injury. No calf tenderness. No recent travel, surgery, or hospitalizations. She followed up with her primary care physician and was told that she only has mild arthritis. She states that the pain keeps her up at night periodically. She was able to walk however pain worsens with movement. No other complaints or concerns at this time. MD Complaint: extremity pain Pain Consistency: constant Radiation: none Relieving factors: nothing Exacerbating factors: nothing Associated symptoms: denies other symptoms Related Data Home Medications ?Medication ?Instructions ?Recorded ?Confirmed bupropion HCl 300 mg 24 hr tablet, 300 mg PO DAILY 01/07/23 extended release losartan 50 mg tablet 50 mg PO DAILY 01/07/23 simvastatin 40 mg tablet 40 mg PO BEDTIME 01/07/23 topiramate 100 mg tablet 100 mg PO DAILY 01/07/23 Previous Rx's ?Medication ?Instructions ?Recorded cyclobenzaprine 10 mg tablet 10 mg PO TID PRN muscle spasm #20 06/18/23 tabs lidocaine 5 % topical patch 1 patch topical DAILY #30 ea 06/18/23 prednisone 20 mg tablet 20 mg PO DAILY 7 days #7 tabs 11/09/23 cyclobenzaprine 10 mg tablet 10 mg PO Q8H #20 tabs 11/15/23 oxycodone 5 mg tablet 5 mg PO Q6H PRN pain #20 tabs 11/15/23 acetaminophen 650 mg 650 mg PO Q8H PRN pain #30 tabs 01/11/24 tablet,extended release (Tylenol Arthritis Pain) Allergies Allergy/AdvReac Type Severity Reaction Status Date / Time DUST Allergy Unknown SHORTNESS Uncoded 01/11/24 09:55 OF BREATH Review of Systems Review of Systems: Yes all other systems are reviewed and are negative Constitutional: Constitutional: Reports as per HPI [facility] Past Medical History Medical History Asthma Diabetes mellitus, type 2 Hypercholesteremia Hypertension Surgical History Hx of dilation and curettage Family History Family History Brother Diabetes Pancreatic cancer Mother Diabetes Social History Social History Household Members: Spouse and Children Housing: Apartment Alcohol intake: current Alcohol intake frequency: holidays/special occasions only Patient Tobacco Use Status: Former Tobacco user Current occupational status: unemployed Sexual orientation: Straight/Heterosexual Gender identity: Female Physical Exam Vital Signs: Vital Signs: Last Vital Signs Temp 97.6 F 01/11/24 13:31 Pulse 91 01/11/24 13:31 Resp 14 01/11/24 13:31 BP 131/71 01/11/24 13:31 Pulse Ox 100 01/11/24 13:31 O2 Del Method Room Air 01/11/24 13:31 BMI result Body Mass Index 36.6 Const: General: cooperative, comfortable and no acute distress Orientation/consciousness: patient oriented x3 Limitations: no limitations HEENT: Head: Yes normal to inspection, Yes normocephalic and Yes atraumatic Ears: hearing grossly normal bilaterally General nose exam: Normal external nose present Face and sinus: Yes normal facial exam Mouth: Normal oral and palatal mucosa present, oropharynx normal and moist mucous membranes Throat: Yes posterior oropharynx normal Eyes: General: appearance normal, both eyes and all related structures Eyelids: Yes eyelids normal Conjunctivae: conjunctivae normal Sclerae: sclerae normal Pupils: Equal, round and reactive pupils present EOM: EOMs intact bilaterally Neck: Neck: Yes normal visual inspection, Yes full ROM and Yes no lymphadenopathy Lymphatic: no lymphadenopathy noted Chest: Chest palpation & inspection: normal inspection of the chest Resp: Effort & Inspection: normal respiratory effort and able to speak in complete sentences Auscultation: clear to auscultation bilaterally, no crackles, no rales, no rhonchi and no wheezes Cardio: Rate: regular rate Rhythm: regular rhythm Heart sounds: S1 normal heart sound present and S2 normal heart sound present GI: Inspection: Yes normal to inspection Skin: General skin exam: no rashes or lesions noted Trauma: no lacerations or abrasions Wounds: no wounds Neuro: General: patient oriented x3 and moves all extremities Cranial nerves: Yes Equal, round and reactive pupils present Extrem: Other: Right knee, with no obvious bony deformity or swelling. No significant edema, or erythema. Full range of motion of the knee without difficulty. She is ambulatory with steady gait. Patient has tenderness palpation along the medial and lateral joint line. Negative anterior-posterior drawer test, no joint laxity with varus and valgus strain. Distal sensation circulation intact. General: Yes normal to inspection Right upper extremity: normal to inspection Left upper extremity: normal to inspection Right lower extremity: normal to inspection Left lower extremity: normal to inspection Medical Decision Making Medical Decision Making MDM Narrative: This is a 58-year-old female who presents emergency department with complaints of right knee pain. On arrival, vital signs within normal limits, she is ambulatory with steady gait. No acute findings on examination, she does have mild tenderness palpation along the medial and lateral joint line with full ROM of the knee. She has a history of arthritis. He was followed up with her PCP however has never been seen by orthopedist. X-rays were performed revealing minimal tricompartment peripheral osteophyte formation. Discussed findings with patient. Given referral to orthopedist. Given strict return precautions. She understands agrees with plan. Patient stable for discharge Differential Diagnosis Differential Diagnoses: The differential diagnosis associated with the presentation includes Osteoarthritis, ligamentous derangement of the knee, sprain, strain Radiology Impression Discussion of test interpretation with radiology: I have reviewed the radiologist's reading. Radiologist Impression: XR/XR knee RT 4V IMPRESSION: 1. No fracture, dislocation or right knee joint effusion is seen. 2. There is minimal tricompartment peripheral osteophyte formation. Electronically signed by: Wyatt Harmon MD 01/11/2024 12:20 PM [facility] [place] Dictated By: Wyatt Harmon MD Discharge Plan Discharge Clinical Impression: Knee osteoarthritis Patient Disposition: Home, Self-Care Instructions: Osteoarthritis (ED) Additional Instructions: You were seen in the emergency department due to knee pain. Your x-rays show evidence of arthritis. It is very important that you follow-up with the learning operations specialist as they can better manage your pain. Please call learning operations specialist, call on Saturday to make an appointment. Continue taking naproxen as needed for pain. I am also prescribing Tylenol which you can take as prescribed. Do not mix naproxen and ibuprofen together as these are similar medications. Rest, ice, and gentle range of motion can also help with your symptoms. If any new or worsening symptoms occur including but not limited to chest pain or shortness for breath, please seek emergent care. Prescriptions: New acetaminophen [Tylenol Arthritis Pain] 650 mg tablet extended release 650 mg PO Q8H PRN (Reason: pain ) Qty: 30 0RF No Action cyclobenzaprine 10 mg tablet 10 mg PO Q8H Qty: 20 0RF oxycodone 5 mg tablet 5 mg PO Q6H PRN (Reason: pain) Qty: 20 0RF Rx Instructions: Partial Fill upon patient request. cyclobenzaprine 10 mg tablet 10 mg PO TID PRN (Reason: muscle spasm) Qty: 20 0RF lidocaine 5 % adhesive patch,medicated 1 patch topical DAILY Qty: 30 0RF Rx Instructions: leave on most painful area for up to 12 hrs prednisone 20 mg tablet 20 mg PO DAILY 7 Days Qty: 7 0RF topiramate 100 mg tablet 100 mg PO DAILY losartan 50 mg tablet 50 mg PO DAILY bupropion HCl 300 mg tablet extended release 24 hr 300 mg PO DAILY simvastatin 40 mg tablet 40 mg PO BEDTIME Referrals: [facility] [Provider Group] Interventions: ED Discharge Assessment Last Done: 01/11/24 13:31 Discharge Date/Time: 01/11/24 13:32 Print Language: Spanish
[2024-01-11 11:55] VITALS: BP 133/71; PULSE 94; RESP 18; TEMP 36.5; O2SAT 99
[2024-01-11 13:31] VITALS: BP 131/71; PULSE 91; RESP 14; TEMP 36.4; O2SAT 100
== END 2024-01-11 13:32 | disposition home or self-care (01) ==
PROVIDERS: Emergency Provider Emergency Medicine; PCP Internal Medicine
DX: M17.11 Unilateral primary osteoarthritis, right knee (principal); E11.9 Type 2 diabetes mellitus without complications; I10 Essential (primary) hypertension; E78.00 Pure hypercholesterolemia, unspecified; J45.909 Unspecified asthma, uncomplicated; Z87.891 Personal history of nicotine dependence
CPT/HCPCS: 73564; 99283; 99284

== ENCOUNTER 2024-01-16 14:52 | Outpatient (AMB) | payer OTHER, SELFPAY ==
--- NOTE | 2024-01-16 14:56 | A.OFFVIS_ITS ---
Vital Signs 01/16/24 15:01 Height 5 ft 3 in Weight 209 lb 6 oz BMI 37.1 BP 140/72 H Blood Pressure Location Lt brachial Position Sitting Respiration 16 Pulse 102 H Pulse Source Pulse Oximeter Pulse Oximetry (%) 99 Oxygen Delivery Method Room Air Intake Visit Reasons: Intracept Denial/Discuss Alternate Options Intake Note: Patient comes in to discuss other options. Allergies DUST Allergy (Unknown, Uncoded 01/11/24 09:55) SHORTNESS OF BREATH HPI Comments Details: Dionne is Back in my office after her insurance company denied intercept procedure. I explained to her that 1 of the options for her would be to change her insurance for the 1 of the Medicaid subsidiaries or traditional Medicaid itself which would be covering the cost of the procedure. The patient promised to call Medicaid office tomorrow however she reports that current insurance covers her eyes and her dental care in good extent and that is why she chose this Insurance. I understood the predicament of this patient. I offered her chronic opioid therapy. She reported that when she was teenager she was taking mescaline and the cannabis. She is afraid to become addicted. I told her that this is not unfounded fear, however I do not mind to try. She will give us a call if she would like to become chronic opioid program patient. Prior: very pleasant 58 years old female who presents in my office with come complains on lower back pain in the projection of the sacral bone mostly. She reports pain does not radiate into bilateral lower extremities, she reports also pain in the projection of the lower thoracic spine. She reports that flexing forward aggravates her pain, she reports that prolonged sitting aggravates her pain as well. She reports that increased activity aggravates her pain as well. She reported that her pain started o on 06/03/2023. By now this is already subacute going on chronic pain. The patient completed physical therapy and physical therapy did not change her pain. The patient tried NSAIDs and muscle relaxants those medications were not helpful for her pain. 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 She wants to stay active. She was sent on the MRI of the lumbar spine which demonstrated T11-T12 Modic type 1 and type 2 changes as well as L5 and S1 Modic type 2 and type 1 changes. Those changes in the case of L5 and S1 vertebra superimposed 1 on another. A with diagnosis of vertebra genic pain syndrome I will schedule this patient for intercept procedure. Risks and benefits were briefly explained today to the patient. The case will be s cheduled under general anesthesia. As of her Modic type 2 changes at T11-T12 vertebra unfortunately no intercept procedure can not be offered for the patient because of the proximity of the spinal cord. [facility] Medical History Asthma Diabetes mellitus, type 2 Hypercholesteremia Hypertension Surgical History Hx of dilation and curettage Family History Brother Diabetes Pancreatic cancer Mother Diabetes Social History Household Members: Spouse and Children Housing: Apartment Alcohol intake: current Alcohol intake frequency: holidays/special occasions only Patient Tobacco Use Status: Former Tobacco user Current occupational status: unemployed Sexual orientation: Straight/Heterosexual Gender identity: Female Review of Systems Const All systems reviewed & are unremarkable except as noted in HPI and below ENT Reports Normal hearing present Neuro Reports Normal hearing present, Denies Abnormal speech present and Denies Sensory deficit (Neuro) Physical Exam Vital Signs: Last Vital Signs Pulse 102 H 01/16/24 15:01 Resp 16 01/16/24 15:01 BP 140/72 H 01/16/24 15:01 Pulse Ox 99 01/16/24 15:01 Oxygen Delivery Method Room Air 01/16/24 15:01 BMI result Body Mass Index 37.1 Const General: cooperative, healthy appearing, no acute distress, well developed, alert and awake Nutritional Appearance: obese Eyes General: appearance normal, both eyes and all related structures Pupils: Equal, round and reactive pupils present EOM: EOMs intact bilaterally Neck Neck: Yes full ROM Resp Effort & Inspection: normal respiratory effort, able to speak in complete sentences, normal respiratory pattern, no audible wheezes and no cough Cardio Jugular venous distension: no JVD GI Inspection: Yes normal to inspection Back/Spine/Pelvis Other: She is able to stand on bilateral tiptoes in bilateral heels without any difficulty. She is able to flex herself forward and flex herself backwards he reports flexing backwards aggravate her pain. She reports tenderness on palpation in projection of the sacral bone and lower lumbar spines. The tenderness in paraspinal and spinal region. She reports flexing sideways aggravate her pain as well. She denies Valsalva maneuver aggravates her pain. SLR is negative for typical pain in the back it aggravates pain in the back but does not make pain to radiate into bilateral lower extremities, the dorsiflexion at maximal SLR does not aggravate pain further without radiation of the pain into bilateral lower extremities. Ruddy test is equivocal bilaterally however pelvic compression test pelvic distraction test and Stinchfield tests are negative on initial exam. Lateral rotation of the hips does not cause discomfort in the groins. Neuro Cranial nerves: Yes Equal, round and reactive pupils present and Yes Normal hearing present Speech: No Abnormal speech present Gait exam (Neuro): Normal gait present Motor exam (neuro): 5/5 motor strength present throughout Sensory Exam: No Sensory deficit (Neuro) Extrem General: No pedal edema Psych Speech and movement: Normal speech and movement present Affect: normal affect Attitude: cooperative Thought process: Normal thought process present Thought content: Normal thought content present Insight: Good insight present (Psych) Judgement: Good judgement present (Psych) Assessment & Plan Assessment & Plan (1) Idiopathic scoliosis of lumbar region: Code(s): M41.26 - Other idiopathic scoliosis, lumbar region Category: Medical (2) Spondylosis of lumbar region without myelopathy or radiculopathy: Code(s): M47.816 - Spondylosis without myelopathy or radiculopathy, lumbar region Category: Medical (3) Lower back pain: Code(s): M54.50 - Low back pain, unspecified Category: Medical (4) Vertebrogenic low back pain: Code(s): M54.51 - Vertebrogenic low back pain Category: Medical Plan 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 Unfortunately her insurance company thinks that this is experimental procedure. The only option I can give this patient to relieve her pain is to admit her to chronic opioid program. She is reluctant to go for it because as a child teenager she was using mescaline and cannabis. She is afraid to become addicted. This was long time ago and I do not think that patient is on average at increased risk of addiction at this time however risk addition assessment can not be done in the future if she decides to join our opioid program. As of her intercept procedure which potentially could give her very good pain relief I recommended her to switch her insurance company for traditional Medicaid if she wants to versus some subsidiary of Medicaid which covers this procedure. She will give us a call if she decides to join our chronic opioid program. I presume she would require now long period of time to switch her insurance because open enrollment period In November is over. Coding Level of Care Code Est Pt Level 3 (19292) Diagnoses Idiopathic scoliosis of lumbar region M41.26 Spondylosis of lumbar region without myelopathy or radiculopathy M47.816 Lower back pain M54.50 Vertebrogenic low back pain M54.51
[2024-01-16 15:01] VITALS: BP 140/72; PULSE 102; RESP 16; O2SAT 99; BMI 37.1
== END 2024-01-16 15:15 | disposition home or self-care (01) ==
PROVIDERS: PCP Internal Medicine; Visit Provider Anesthesiology
DX: M41.26 Other idiopathic scoliosis, lumbar region (principal); M47.816 Spondylosis without myelopathy or radiculopathy, lumbar region; M54.50 Low back pain, unspecified; M54.51 Vertebrogenic low back pain
CPT/HCPCS: 99213

== ENCOUNTER → 2024-01-16 14:52 | Outpatient (BNVA) | payer OTHER, SELFPAY | PROVIDERS: PCP Internal Medicine; Visit Provider Anesthesiology | DX: M41.26 Other idiopathic scoliosis, lumbar region (principal); M47.816 Spondylosis without myelopathy or radiculopathy, lumbar region; M54.50 Low back pain, unspecified; M54.51 Vertebrogenic low back pain | CPT/HCPCS: 99212 ==

== ENCOUNTER 2024-02-06 11:10 | Emergency (ER) | payer OTHER, SELFPAY ==
--- NOTE | ~2024-02-06 | XR_ITS ---
EXAMINATION: XR KNEE, RIGHT CLINICAL INFORMATION: swelling, pain COMPARISON: None available. TECHNIQUE: Four views of the right knee. FINDINGS: There is a small suprapatellar knee joint effusion. No fracture. Alignment is anatomic. Joint spaces are maintained. No abnormal soft tissue calcification. XR/XR knee RT 4V IMPRESSION: Small suprapatellar knee joint effusion. No acute osseous process. Electronically signed by: Vickey Kuar MD 02/06/2024 02:21 PM EST
--- OUTSIDE RECORDS SUMMARY | 2024-02-06 11:14 | XMS_ITS | Continuity of Care Document ---
Author Organization [facility] Address [address] [place] [id number]- Care Team Providers Care Service Greeter Name Role Phone Kassi Trejo MD Primary Care Physician [phone] Encounter [facility] [place] Date(s): 12/11/23 - 01/10/24 [facility] [address] [place] [id number] Attending Physician: Chi Durand Admitting Physician: Chi Durand Referring Physician: Admtr [id number] Encounter Type: Triage Allergies, Adverse Reactions, Alerts No Known Medication Allergies Medications Aleve = 220 mg, By Mouth, Every 12 hours, 0 Refills, Maintenance, 12/11/23 8:07:00 AM EDT, Partial fill upon patient request if the prescription is for a schedule II opioid drug. Start Date: 12/11/23 Status: Ordered Repeat number: 1 Ferrous Sulfate EC Refills 0, Maintenance, 12/11/23 8:06:00 AM EDT, Partial fill upon patient request if the prescription is for a schedule II opioid drug. Start Date: 12/11/23 Status: Ordered Repeat number: 1 Losartan By Mouth, Daily, 0 Refills, Maintenance, 12/11/23 8:06:00 AM EDT, Partial fill upon patient requestif the prescription is for a schedule II opioid drug. Start Date: 12/11/23 Status: Ordered Repeat number: 1 Simvastatin By Mouth, Daily before dinner, 0 Refills, Maintenance, 12/11/23 8:06:00 AM EDT, Partial fill upon patient request if the prescription is for a schedule II opioid drug. Start Date: 12/11/23 Status: Ordered Repeat number: 1 Topiramate See Instructions, By Mouth, 0 Refills, Maintenance, 12/11/23 8:07:00 AM EDT, Partial fill upon patient request if the prescription is for a schedule II opioid drug. Start Date: 12/11/23 Status: Ordered Repeat number: 1 Problem List Condition Confirmation Course Effective Dates Status Health Status Informant Hypercholesterolemia Confirmed Active Hypertension Confirmed Active Mild intermittent stable asthma Confirmed Active Social History Social History Type Response Smoking Status Former smoker, quit more than 30 days ago entered on: 12/11/23 Sex Sex Representation Female (finding) Patient Care team information Care Team Personnel Name: Kassi Trejo MD Position: [facility] Outreach Member Role: PCP Address: [address] [place] [address] [address] [place] [address]- Telecom: Care Team Related Persons Name: RM URIARTE Name: KATIA GONZALEZ Insurance Providers Guarantor name: [employer] Health Plan Information #: 1 Payer: [facility] [employer] Member Number: [employer] Policy Number: S[employer] Group Number: [id number]
[2024-02-06 11:32] VITALS: BP 158/68; PULSE 99; RESP 18; TEMP 36.3; O2SAT 99; BMI 36.6
--- NOTE | 2024-02-06 11:59 | ED.BACK ---
HPI - Back Pain/Injury General Chief Complaint: Back Pain/Injury Stated Complaint: back pain Time Seen by Provider: 02/06/24 11:46 Source: patient Mode of arrival: ambulatory Limitations: no limitations History of Present Illness ED Provider: Todd Hoover PA-C HPI Narrative: 58 yo female presents to the ER for evaluation of acute on chronic back pain and right knee pain. she states she has known arthritis in the right knee and has an appointment coming up with ortho in 1 week. she reports pain and swelling in the right knee for the last week, difficultly bending it and difficultly getting out of bed. no relief with aleve and tylenol arthritis. no redness of the joint but she reports it is swollen. no fever or chills. she reports spasms in her lower back from walking differently with her knee pain. she has been using a cane. she has no radiation of the pain. she denies numbness or tingling in her legs. MD elicited complaint: back pain and other (right knee pain ) Pertinent past history: prior back pain Onset (ago): week(s) Timing: constant Severity: moderate Pain scale (0-10): 8 Similar Symptoms Previously: Yes Quality: aching and spasming Location: right lower back and left lower back Radiation: none Exacerbating factors: movement and walking Relieving factors: immobilization Context: unknown Associated symptoms: denies other symptoms Treatments prior to arrival: NSAIDS and acetaminophen Work related injury: No Related Data Home Medications ?Medication ?Instructions ?Recorded ?Confirmed bupropion HCl 300 mg 24 hr tablet, 300 mg PO DAILY 01/07/23 extended release losartan 50 mg tablet 50 mg PO DAILY 01/07/23 simvastatin 40 mg tablet 40 mg PO BEDTIME 01/07/23 topiramate 100 mg tablet 100 mg PO DAILY 01/07/23 Previous Rx's ?Medication ?Instructions ?Recorded cyclobenzaprine 10 mg tablet 10 mg PO TID PRN muscle spasm #20 06/18/23 tabs lidocaine 5 % topical patch 1 patch topical DAILY #30 ea 06/18/23 prednisone 20 mg tablet 20 mg PO DAILY 7 days #7 tabs 11/09/23 cyclobenzaprine 10 mg tablet 10 mg PO Q8H #20 tabs 11/15/23 oxycodone 5 mg tablet 5 mg PO Q6H PRN pain #20 tabs 09/20/24 acetaminophen 650 mg 650 mg PO Q8H PRN pain #30 tabs 01/11/24 tablet,extended release (Tylenol Arthritis Pain) oxycodone 5 mg tablet 5 mg PO Q8H PRN severe pain (scale 02/06/24 score 7-10) #5 tabs Allergies Allergy/AdvReac Type Severity Reaction Status Date / Time DUST Allergy Intermediate SHORTNESS Uncoded 02/06/24 11:35 OF BREATH Review of Systems Review of Systems: Yes all other systems are reviewed and are negative [facility] Past Medical History Medical History Asthma Diabetes mellitus, type 2 Hypercholesteremia Hypertension Surgical History Hx of dilation and curettage Family History Family History Brother Diabetes Pancreatic cancer Mother Diabetes Social History Social History Household Members: Spouse and Children Housing: Apartment Alcohol intake: current Alcohol intake frequency: holidays/special occasions only Patient Tobacco Use Status: Former Tobacco user Advance Directives: No Advance Directives Information Provided: Yes Do you have a plan to hurt others: No Plan Current occupational status: unemployed Sexual orientation: Straight/Heterosexual Gender identity: Female Physical Exam Vital Signs: Vital Signs: Last Vital Signs Temp 97.3 F 02/06/24 15:07 Pulse 99 02/06/24 15:07 Resp 18 02/06/24 15:07 BP 158/68 H 02/06/24 15:07 Pulse Ox 99 02/06/24 15:07 O2 Del Method Room Air 02/06/24 15:07 BMI result Body Mass Index 36.6 Appearance: Alert. Oriented X3. No acute distress. Head: normocephalic, atraumatic. Eyes: Pupils equal, round and reactive to light. ENT: Pharynx normal. No tonsillar swelling or exudate. Neck: Normal inspection. Neck supple. CVS: Normal heart rate and rhythm. Pulses normal. Respiratory: No respiratory distress. Breath sounds normal. Back: normal inspection, mild soft tissue tenderness of the bilateral lumbar area, no midline tenderness Skin: Skin warm and dry. Normal skin color. Normal skin turgor. No rashes. Extremities: right knee with mild swelling, normal passive ROM. no appreciated joint laxiety. pain with both varus and valus stress. no swelling of the left knee Neuro/psych: Oriented X 3. No motor deficit. No sensory deficit. CN II-XII intact. Normal speech and cognition. slow but steady gait Medications Administered Discontinued Medications Generic Name Dose Route Start Last Admin Trade Name Mignon PRN Reason Stop Dose Admin Oxycodone HCl 5 mg 02/06/24 12:10 02/06/24 12:29 Oxycodone Hcl Immed Release 5 Mg Tablet PO 02/06/24 12:11 5 mg ONCE ONE Administration Medical Decision Making Medical Decision Making MDM Narrative: 58 yo female presenting with acute on chronic pain in both her right knee and her lower back. no relief with tylenol and aleve. xr right knee showing small effusion. no erythema or warmth to suggest infection or gout. placed in yan wrap for compression and support. using cane, declined crutches. will give short course of oxycodone for knee pain. she has ortho f/u next week. back pain seems muscular. advised ongoing nsaid, tylenol, stretching, ice, and heat - f/u pcp and PT referral recommended. stable for d/c home Differential Diagnosis Differential Diagnoses: The differential diagnosis associated with the presentation includes knee effusion, knee OA, RA, ligamentous injury low back strain, spasm, DJD, scoliosis Independent Interpretation I performed an independent interpretation of an: Plain X-Ray Interpretation: xr knee without acute fx Radiology Impression Discussion of test interpretation with radiology: I have reviewed the radiologist's reading. Independent Historian Clinical information obtained from an independent historian. History obtained from or confirmed by: Spouse External Record Review External record reviewed: Outpatient record, Prior outpatient labs and Prior outpatient radiology Prescription Management I considered prescription management with: Pain Medication Chronic Conditions Patient?s care impacted by: Other (OA) Critical Care Time Critical Care Time Critical Care Time: No Discharge Plan Discharge Clinical Impression: Effusion of knee Qualifiers: Laterality: right Qualified Code(s): M25.461 - Effusion, right knee Patient Disposition: Home, Self-Care Instructions: Swollen Knee Joint (ED) Additional Instructions: Your x-ray today showed a small amount of fluid on the knee. Recommend YAN wrap for support and compression. Elevate your knee whenever posible. Use ice several times per day for the next 48 hours. You may bear weight as tolerated. If pain is too severe, use crutches until better. Take Motrin and/or Tylenol as needed for mild to moderate pain. Take the prescribed oxycodone as needed for severe pain only. Follow up with your doctor & orthopedics EXAMINATION: XR KNEE, RIGHT CLINICAL INFORMATION: swelling, pain COMPARISON: None available. TECHNIQUE: Four views of the right knee. FINDINGS: There is a small suprapatellar knee joint effusion. No fracture. Alignment is anatomic. Joint spaces are maintained. No abnormal soft tissue calcification. IMPRESSION: Small suprapatellar knee joint effusion. No acute osseous process. Prescriptions: New oxycodone 5 mg tablet 5 mg PO Q8H PRN (Reason: severe pain (scale score 7-10)) Qty: 5 0RF Rx Instructions: Partial Fill upon patient request. No Action cyclobenzaprine 10 mg tablet 10 mg PO Q8H Qty: 20 0RF oxycodone 5 mg tablet 5 mg PO Q6H PRN (Reason: pain) Qty: 20 0RF Rx Instructions: Partial Fill upon patient request. cyclobenzaprine 10 mg tablet 10 mg PO TID PRN (Reason: muscle spasm) Qty: 20 0RF lidocaine 5 % adhesive patch,medicated 1 patch topical DAILY Qty: 30 0RF Rx Instructions: leave on most painful area for up to 12 hrs prednisone 20 mg tablet 20 mg PO DAILY 7 Days Qty: 7 0RF acetaminophen [Tylenol Arthritis Pain] 650 mg tablet extended release 650 mg PO Q8H PRN (Reason: pain ) Qty: 30 0RF topiramate 100 mg tablet 100 mg PO DAILY losartan 50 mg tablet 50 mg PO DAILY bupropion HCl 300 mg tablet extended release 24 hr 300 mg PO DAILY simvastatin 40 mg tablet 40 mg PO BEDTIME Referrals: [facility] [place] Orthopedic Surgeons [Provider Group] (EXAMINATION: XR KNEE, RIGHT CLINICAL INFORMATION: swelling, pain COMPARISON: None available. TECHNIQUE: Four views of the right knee. FINDINGS: There is a small suprapatellar knee joint effusion. No fracture. Alignment is anatomic. Joint spaces are maintained. No abnormal soft tissue calcification. IMPRESSION: Small suprapatellar knee joint effusion. No acute osseous process.) Kassi Trejo MD [Primary Care Provider] - Interventions: ED Discharge Assessment Last Done: 02/06/24 15:07 Discharge Date/Time: 02/06/24 15:09 Print Language: Kazakh
[2024-02-06] MEDS: oxyCODONE HCl Immed Release 5 MG TABLET PO (12:29)
--- NOTE | 2024-02-06 14:49 | MHC.EDTECH ---
Patient declined howie wrap being applied. Could not pull pants up far enough and did not wan to lower her pants for this tech to apply wrap. provider aware.
[2024-02-06 15:07] VITALS: BP 158/68; PULSE 99; RESP 18; TEMP 36.3; O2SAT 99
== END 2024-02-06 15:09 | disposition home or self-care (01) ==
PROVIDERS: Emergency Provider Student in an Organized Health Care Education/Training Program; PCP Internal Medicine
DX: M25.461 Effusion, right knee (principal); M25.561 Pain in right knee; E11.9 Type 2 diabetes mellitus without complications; I10 Essential (primary) hypertension; E78.00 Pure hypercholesterolemia, unspecified; J45.909 Unspecified asthma, uncomplicated
CPT/HCPCS: 73564; 99283

== ENCOUNTER 2024-02-13 12:44 | Outpatient (AMB) | payer OTHER, SELFPAY ==
--- NOTE | 2024-02-13 13:28 | A.OFFVIS_ITS ---
Intake Visit Reasons: New Patient - Right Knee OA Intake Note: Dionne is a 58 year old female who presents today as a new patient with complaints of right knee pain. Patient reports ongoing right knee pain for quite some time now, it has been worsening recently with increased pain and swelling. This pain makes AODLs difficult. Takes Aleve and Tylenol Arthritis with minimal relief. Will occasionally use Oxycodone at night PRN Pain. Ambulates with a cane. She has no previous therapies. 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 Patient reports ongoing right knee pain for quite some time now, it has been worsening recently with increased pain and swelling. This pain makes AODLs difficult. Takes Aleve and Tylenol Arthritis with minimal relief. Will occasionally use Oxycodone at night PRN Pain. Ambulates with a cane. She has no previous therapies. She states she feels like this started in October of this year. 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 Tenderness to palpation medial compartment with varus alignment that is mild bilaterally. Office Procedures Joint Inj/Aspir; Non-Pain Clin Joint Injection/Drain Details: Injected 1 mL of Decadron and 3 mL 1% lidocaine and 3 mL of 0.25% Marcaine. Si te was prepped using aseptic technique. Patient tolerated the procedure well. Approach Used: anterolateral Shoulders, Hips, Knees, Knee Large Joint Injection : Right Knee Coding Procedure code (CPT) selection complete Results Reviewed Results Reviewed: I personally reviewed relevant radiographs. Mild arthritis medial compartment with small effusion. Assessment & Plan Assessment & Plan (1) Osteoarthritis of right knee: Code(s): M17.11 - Unilateral primary osteoarthritis, right knee Category: Medical Plan: Right knee osteoarthritis that is mild I injected her right knee. If this is not sufficiently helpful we can consider formal physical therapy and/or viscosupplementation. She will follow up as needed. Coding Level of Care Code New Pt Level 3 (67595) Diagnoses Osteoarthritis of right knee M17.11 CPT Codes Shoulders, Hips, Knees, - Knee Large Joint Injection : Right Knee ([id number])
== END 2024-02-13 15:59 | disposition home or self-care (01) ==
PROVIDERS: PCP Internal Medicine; Visit Provider Orthopaedic Surgery
DX: M17.11 Unilateral primary osteoarthritis, right knee (principal)
CPT/HCPCS: 20610; 99203

== ENCOUNTER → 2024-02-13 12:44 | Outpatient (BNVA) | payer OTHER, SELFPAY | PROVIDERS: PCP Internal Medicine; Visit Provider Orthopaedic Surgery | DX: M17.11 Unilateral primary osteoarthritis, right knee (principal) | CPT/HCPCS: 20610; 99202; J0665; J1100; J2003 ==

== ENCOUNTER 2024-03-23 12:54 | Outpatient (AMB) | payer OTHER, SELFPAY ==
--- NOTE | 2024-03-23 12:57 | MHC.OFFVIS ---
Vital Signs 03/23/24 12:58 Height 5 ft 3 in Weight 206 lb BMI 36.5 Intake Visit Reasons: Right Knee Durolane Injection Intake Note: Dionne is a 59 year old female who presents today for a Right Knee Durolane Injection Allergies DUST Allergy (Intermediate, Uncoded 02/06/24 11:35) SHORTNESS OF BREATH HPI HPI Right Knee Durolane Injection: Details: Here for right knee Durlone. [facility] Medical History Asthma Diabetes mellitus, type 2 Hypercholesteremia Hypertension Surgical History Hx of dilation and curettage Family History Brother Diabetes Pancreatic cancer Mother Diabetes Social History Household Members: Spouse and Children Housing: Apartment Alcohol intake: current Alcohol intake frequency: holidays/special occasions only Patient Tobacco Use Status: Former Tobacco user Current occupational status: unemployed Sexual orientation: Straight/Heterosexual Gender identity: Female Physical Exam Vital Signs: BMI result Body Mass Index 36.5 Extrem Other: skin c/d/i Office Procedures Joint Inj/Aspir; Non-Pain Clin Joint Injection/Drain Details: Injected Durolane. Site was prepped using aseptic technique. Patient tolerated the procedure well. Shoulders, Hips, Knees, Knee Large Joint Injection : Right Knee Coding Procedure code (CPT) selection complete Assessment & Plan Assessment & Plan (1) Osteoarthritis of right knee: Code(s): M17.11 - Unilateral primary osteoarthritis, right knee Category: Medical Plan: Injected Durolane right knee. f/u 3 mo Coding Level of Care Code Est Pt Level 2 (60190) Diagnoses Osteoarthritis of right knee M17.11 CPT Codes Shoulders, Hips, Knees, - Knee Large Joint Injection : Right Knee ([id number])
[2024-03-23 12:58] VITALS: BMI 36.5
== END 2024-03-23 13:09 | disposition home or self-care (01) ==
PROVIDERS: PCP Internal Medicine; Visit Provider Orthopaedic Surgery
DX: M17.11 Unilateral primary osteoarthritis, right knee (principal)
CPT/HCPCS: 20610

== ENCOUNTER → 2024-03-23 12:54 | Outpatient (BNVA) | payer OTHER, SELFPAY | PROVIDERS: PCP Internal Medicine; Visit Provider Orthopaedic Surgery | DX: M17.11 Unilateral primary osteoarthritis, right knee (principal) | CPT/HCPCS: 20610; J7318 ==

== ENCOUNTER 2024-05-12 13:18 | Outpatient (REF) | payer OTHER, SELFPAY ==
[2024-05-12 13:34] LABS: MANUAL DIFF FLAG NO
[2024-05-12 14:03] LABS: Basophils Percent Auto 0.3 % (0-2); Eosinophils Absolute Auto 0.3 X10*3/uL (0.0-0.4); Eosinophils Percent Auto 3.5 % (0-4); Hematocrit 42.2 % (37.0-47.0); Hemoglobin 13.9 g/dl (12.0-16.0); Imm Gran Abs Auto 0.02 X10*3/uL (0.00-0.03); Imm Gran Pct Auto 0.3 % (0.0-0.4); Lymphocytes Absolute Auto 1.9 X10*3/uL (1.2-4.9); Mean Corpuscular HGB Conc 32.9 g/dl (31.0-35.0); Mean Corpuscular Hemoglobin 30.2 pg (27.0-33.0); Mean Corpuscular Volume 91.5 fL (80.0-98.0); Mean Platelet Volume 10.7 fL (9.4-12.3); Monocytes Absolute Auto 0.7 X10*3/uL (0.1-1.2); Monocytes Percent Auto 9.3 % (2-11); Neutrophils Absolute Auto 4.2 x10*3/uL (2.0-8.3); Neutrophils Percent Auto 59.6 % (45-73); Platelet Count 306 X10*3/uL (160-400); Red Blood Count 4.61 X10*6/uL (4.20-5.50); Red Cell Distribution Width 13.1 % (11.0-16.0); White Blood Count 7.1 X10*3/uL (4.8-10.8)
[2024-05-12 14:41] LABS: Albumin Level 3.8 g/dL (3.5-5.0); Alkaline Phosphatase 106 U/L (39-117); Anion Gap 9 (12-20); Aspartate Amino Transferase 29 U/L (5-31); Bilirubin Total 0.3 mg/dL (0.0-1.0); Blood Urea Nitrogen 19 mg/dL (9-16); Calcium 9.6 mg/dL (8.4-10.2); Carbon Dioxide 26 mmol/L (22-29); Chloride 114 mmol/L (96-108); Cholesterol 191 mg/dL (<200); Estimated Glomerular Filt Rate > 60; Glucose Random 115 mg/dL (60-115); HDL Cholesterol 51 mg/dL (>40); LDL Cholesterol Calculated 79 mg/dL (<100); Potassium 4.2 mmol/L (3.3-5.1); Sodium 145 mmol/L (135-145); Total Protein 6.8 g/dL (6.5-8.0); Triglycerides 309 mg/dL (<150)
[2024-05-12 15:15] LABS: Alanine Aminotransferase 25 U/L (0-31)
== END 2024-05-12 13:19 | disposition home or self-care (01) ==
LOC: HO.LAB 13:18
PROVIDERS: PCP Internal Medicine; Visit Provider Internal Medicine
DX: Z00.00 Encounter for general adult medical examination without abnormal findings (principal); E78.00 Pure hypercholesterolemia, unspecified; F32.5 Major depressive disorder, single episode, in full remission; I10 Essential (primary) hypertension; M17.11 Unilateral primary osteoarthritis, right knee; N95.0 Postmenopausal bleeding
CPT/HCPCS: 36415; 80053; 80061; 85025

== ENCOUNTER 2024-06-22 13:25 | Outpatient (AMB) | payer OTHER, SELFPAY ==
--- NOTE | 2024-06-22 13:30 | A.OFFVIS_ITS ---
Intake Visit Reasons: OV - Right Knee OA - S/p Durolane 03/23/24 Intake Note: Dionne is a 59 year old female who presents today for a follow up of her right knee OA. She was last seen on 03/23/24 where she received a Right Knee Durolane injection. Patient reports that this injection was more helpful than the cortis one but started to lessen in effect in about april. Allergies DUST Allergy (Intermediate, Uncoded 06/22/24 13:33) SHORTNESS OF BREATH HPI HPI OV - Right Knee OA - S/p Durolane 03/23/24: Details: Dionne is now 3 months status post Demetrice injection for the right knee. She states it worked for about 2 months but has stopped working now. She states her pain comes and goes sometimes she has a aching dull pain sometimes her knees okay. Most of the pain is over the medial aspect of the right PFSH Medical History Asthma Diabetes mellitus, type 2 Hypercholesteremia Hypertension Surgical History Hx of dilation and curettage Family History Brother Diabetes Pancreatic cancer Mother Diabetes Social History Household Members: Spouse and Children Housing: Apartment Alcohol intake: current Alcohol intake frequency: holidays/special occasions only Patient Tobacco Use Status: Former Tobacco user Current occupational status: unemployed Sexual orientation: Straight/Heterosexual Gender identity: Female Physical Exam Extrem Other: Tenderness over the medial compartment with less pain over the joint line. There is negative Tessa's. She has full range of motion. Assessment & Plan Assessment & Plan (1) Osteoarthritis of right knee: Code(s): M17.11 - Unilateral primary osteoarthritis, right knee Category: Medical Plan: 59-year-old with mild osteoarthritis and an effusion on imaging 5 months ago. No evidence of ongoing effusion and pain is dull and achy. Low index of suspicion for meniscal pathology although not impossible. She has not done any physical therapy I would recommend physical therapy and follow up telehealth visit in 3 months. She may want a repeat of the Demetrice which we will discuss at that visit. PT prescription written. Orders: Orders PT Evaluation and Treatment Today M17.11 - Unilateral primary osteoarthritis, right knee Coding Level of Care Code Est Pt Level 3 (66062) Diagnoses Osteoarthritis of right knee M17.11
== END 2024-06-22 13:52 | disposition home or self-care (01) ==
LOC: HO.HOS 13:25
PROVIDERS: PCP Internal Medicine; Visit Provider Orthopaedic Surgery
DX: M17.11 Unilateral primary osteoarthritis, right knee (principal)
CPT/HCPCS: 99213

== ENCOUNTER → 2024-06-22 13:25 | Outpatient (BNVA) | payer OTHER, SELFPAY | PROVIDERS: PCP Internal Medicine; Visit Provider Orthopaedic Surgery | DX: M17.11 Unilateral primary osteoarthritis, right knee (principal) | CPT/HCPCS: 99212 ==

== ENCOUNTER 2024-07-11 07:49 | Emergency (ER) | payer OTHER, SELFPAY ==
[2024-07-11 07:58] VITALS: BP 131/66; PULSE 95; RESP 20; TEMP 36.2; O2SAT 96; BMI 38.2
--- OUTSIDE RECORDS SUMMARY | 2024-07-11 08:17 | XMS_ITS | Continuity of Care Document ---
Author Organization [facility] Address [address] [place] [id number] Care Team Providers Care Renderer Name Role Phone Kassi Trejo MD Primary Care Physician Encounter [facility] [place] Date(s): 06/08/24 - 07/08/24 [facility] [address] [place], [place] [id number] Attending Physician: Chi Durand Admitting Physician: AdmChi farley Referring Physician: Admtr [id number] Encounter Type: Triage Allergies, Adverse Reactions, Alerts No Known Medication Allergies Medications buPROPion 300 mg/24 hours (XL) oral tablet, extended release 90 each, 0 Refill(s), TAKE ONE TABLET BY MOUTH EVERY DAY, 0 Refills, 06/08/24 4:24:00 PM EDT, Partial fill upon patient request if the prescription is for a schedule II opioid drug. Start Date: 06/08/24 Status: Ordered Repeat number: 1 losartan 50 mg oral tablet 90 each, 0 Refill(s), TAKE ONE TABLET BY MOUTH EVERY DAY, 0 Refills, 06/08/24 4:24:00 PM EDT, Partial fill upon patient request if the prescription is for a schedule II opioid drug. Start Date: 06/08/24 Status: Ordered Repeat number: 1 mirtazapine 30 mg oral tablet 90 each, 0 Refill(s), TAKE 1/2 OF A TABLET TO 1 TABLET BY MOUTH NIGHTLY FOR SLEEP, 0 Refills, 06/08/24 4:24:00 PM EDT, Partial fill upon patient request if the prescription is for a schedule II opioiddrug. Start Date: 06/08/24 Status: Ordered Repeat number: 1 naproxen 500 mg oral tablet 180 each, 0 Refill(s), TAKE ONE TABLET BY MOUTH TWICE A DAY, 0 Refills, 06/08/24 4:24:00 PM EDT, Partial fill upon patient request if the prescription is for a schedule II opioid drug. Start Date: 06/08/24 Status: Ordered Repeat number: 1 simvastatin 40 mg oral tablet 100 each, 0 Refill(s), TAKE ONE TABLET BY MOUTH EVERY DAY, Refills 0, 06/08/24 4:24:00 PM EDT, Partial fill upon patient request if the prescription is for a schedule II opioid drug. Start Date: 06/08/24 Status: Ordered Repeat number: 1 Topiramate = 100 mg, By Mouth, Daily, 0 Refills, Maintenance, 12/11/23 8:07:00 AM EDT, Partial fill upon patient request if the prescription is for a schedule II opioid drug. Start Date: 12/11/23 Status: Ordered Repeat number: 1 topiramate 100 mg oral tablet 90 each, 0 Refill(s), TAKE ONE TABLET BY MOUTH DAILY AT BEDTIME, 0 Refills, 06/08/24 4:24:00 PM EDT,Partial fill upon patient request if the prescription is for a schedule II opioid drug. Start Date: 06/08/24 Status: Ordered Repeat number: 1 Problem List Condition Confirmation Course Effective Dates Status Health Status Informant Hypercholesterolemia Confirmed Active Hypertension Confirmed Active Mild intermittent stable asthma Confirmed Active Severe obesity (BMI 35.0-39.9) with comorbidity Confirmed Active Social History Social History Type Response Smoking Status Former smoker, quit more than 30 days ago entered on: 12/11/23 Sex Sex Representation Female (finding) Patient Care team information Care Team Personnel Name: Kassi Trejo MD Position: [facility] Outreach Member Role: PCP Address: [address] [place] [address]- Telecom: Care Team Related Persons Name: RM URIARTE Name: KATIA GONZALEZ Insurance Providers Guarantor name: [employer] Health Plan Information #: 1 Payer: [facility] [employer] Member Number: NA Policy Number: NA Group Number: NA
--- NOTE | 2024-07-11 09:05 | ED.GENADULT ---
HPI - General Adult General Chief complaint: Ear Problems Stated complaint: Blockage R ear Time Seen by Provider: 07/11/24 08:57 Source: patient, RN notes reviewed and old records reviewed Mode of arrival: ambulatory Limitations: no limitations History of Present Illness ED Provider: Merry HPI narrative: Patient is a 59-year-old female presenting to the emergency department with complaint of blocked sensation to right ear. She states that she was cleaning her ear with a Q-tip this morning and felt as though she push wax further into her ear canal. Denies pain or decreased hearing. Denies fevers, discharge or drainage. MD complaint: blocked ear Onset (ago): hour(s) Related Data Home Medications ?Medication ?Instructions ?Recorded ?Confirmed bupropion HCl 300 mg 24 hr tablet, 300 mg PO DAILY 01/07/23 extended release losartan 50 mg tablet 50 mg PO DAILY 01/07/23 simvastatin 40 mg tablet 40 mg PO BEDTIME 01/07/23 topiramate 100 mg tablet 100 mg PO DAILY 01/07/23 ferrous sulfate 324 mg (65 mg 324 mg PO DAILY 02/13/24 iron) tablet,delayed release mirtazapine 30 mg tablet 15 - 30 mg PO BEDTIME insomnia 02/13/24 naproxen 500 mg tablet 500 mg PO BID 02/13/24 Previous Rx's ?Medication ?Instructions ?Recorded acetaminophen 650 mg 650 mg PO Q8H PRN pain #30 tabs 01/11/24 tablet,extended release (Tylenol Arthritis Pain) oxycodone 5 mg tablet 5 mg PO Q8H PRN severe pain (scale 02/06/24 score 7-10) #5 tabs Allergies Allergy/AdvReac Type Severity Reaction Status Date / Time DUST Allergy Intermediate SHORTNESS Uncoded 07/11/24 08:02 OF BREATH Review of Systems Review of Systems: As per HPI Yes all other systems are reviewed and are negative Constitutional: Constitutional: Reports as per HPI [facility] Past Medical History Medical History (Updated 07/11/24 @ 09:34 by Rosemarie Sousa NP) Asthma Diabetes mellitus, type 2 Hypercholesteremia Hypertension Surgical History (Updated 07/11/24 @ 08:40 by Bety Flores RN) H/O: hysterectomy Hx of dilation and curettage Family History Family History Brother Diabetes Pancreatic cancer Mother Diabetes Social History Social History Household Members: Spouse and Children Housing: Apartment Alcohol intake: current Alcohol intake frequency: holidays/special occasions only Patient Tobacco Use Status: Former Tobacco user Smoked in Last 30 Days: No Use of substances other than those prescribed or required for medical reasons: No Advance Directives: No Advance Directives Information Provided: No Patient : No Current occupational status: unemployed Sexual orientation: Straight/Heterosexual Gender identity: Female Physical Exam ED Vital Signs: Vital Signs - 24 hr 07/11/24 07:58 Temperature 97.1 F Pulse Rate 95 Respiratory Rate 20 Blood Pressure 131/66 Pulse Oximetry 96 Oxygen Delivery Method Room Air BMI result Body Mass Index 38.2 Vital signs have been reviewed and appear to be correct. Blood pressure normal. Heart rate normal. Respiratory rate normal. Temperature normal. Oxygen saturation normal. Const General: cooperative, healthy appearing and no acute distress Orientation/consciousness: oriented to person, oriented to place, oriented to time and patient oriented x3 Limitations: no limitations HENMT Head: Yes normocephalic and Yes atraumatic Ears: hearing grossly normal bilaterally, external ears normal, right TM abnormal (unable to visualize), TM normal on the left, mastoids normal bilaterally, no periauricular adenopathy and Abnormal EAC present cerumen impaction on the right General nose exam: Normal external nose present and Normal nasal mucous membranes and turbinates present Face and sinus: Yes face symmetric Mouth: oropharynx normal and moist mucous membranes Throat: Yes uvula midline Eyes Pupils: Equal, round and reactive pupils present Neck Neck: Yes normal visual inspection and Yes supple Resp Effort & Inspection: normal respiratory effort and able to speak in complete sentences Auscultation: clear to auscultation bilaterally Cardio Rate: regular rate Rhythm: regular rhythm Heart sounds: S1 normal heart sound present and S2 normal heart sound present GI Palpation (GI): Soft to palpation and nontender Auscultation: normoactive bowel sounds General: Yes no CVA tenderness Back/Spine/Pelvis Back: no CVA tenderness Skin General skin exam: elasticity normal and turgor normal Neuro General: oriented to person, oriented to place, oriented to time, patient oriented x3, moves all extremities, no focal motor deficits and CN's II-XI intact bilaterally Cranial nerves: Yes Equal, round and reactive pupils present Cognition (Neuro): normal cognition Extrem General: Yes full ROM, Yes no pedal edema and Yes no calf tenderness Psych Mental Status: mental status grossly normal Affect: normal affect Thought process: Normal thought process present Procedures Ear Wax Removal Right Ear: Results: Re-examined: cerumen removed completely TM Examination: TM(s) intact, normal appearance Ear Canal Exam: atraumatic Patient Tolerated Procedure: well Complications: no problems Technique: ear canal irrigated Medical Decision Making Medical Decision Making [facility] Narrative: Patient is a 59-year-old female presenting to the emergency department with complaint of blocked sensation to right ear. On exam patient is awake, A+Ox3, VS WNL, afebrile, normal neurological exam without focal deficits, physical exam findings as above. Given reported symptoms and physical exam findings, initial differential includes but is not limited to cerumen impaction, otitis externa, otitis media. Ear irrigated with significant cerumen removal. TM visible and normal after irrigation, patient reports improved symptoms. Advised patient she can use [id number] Debrox drops. Follow up with PCP as needed. Return precautions discussed. Patient verbalized understanding of and agreement with plan. Differential Diagnosis Differential Diagnoses: The differential diagnosis associated with the presentation includes as per [facility] Admission/Observation Consideration of admission/observation: Escalation of care including admission/observation considered Patient would have been admitted to the hospital had their work up had any findings where hospital admission was appropriate and their clinical presentation warranted hospital admission. External Record Review External record reviewed: Inpatient record, Office record and Outpatient record Discharge Plan Discharge Clinical Impression: Impacted cerumen Patient Disposition: Home, Self-Care Instructions: Carbamide Peroxide (Into the ear) (Follow Up Manager's Choice, Debrox,... Additional Instructions: You were evaluated in the emergency department today for a blocked ear. You were noted to have excess cerumen (ear wax) in your ear canal on exam. We were able to remove some of the wax in the ED today. We recommend you begin using over the counter Debrox at home to soften the wax. Follow up with your primary care provider as needed. Return to the emergency department with any new or concerning symptoms. Prescriptions: No Action acetaminophen [Tylenol Arthritis Pain] 650 mg tablet extended release 650 mg PO Q8H PRN (Reason: pain ) Qty: 30 0RF oxycodone 5 mg tablet 5 mg PO Q8H PRN (Reason: severe pain (scale score 7-10)) Qty: 5 0RF Rx Instructions: Partial Fill upon patient request. topiramate 100 mg tablet 100 mg PO DAILY losartan 50 mg tablet 50 mg PO DAILY bupropion HCl 300 mg tablet extended release 24 hr 300 mg PO DAILY simvastatin 40 mg tablet 40 mg PO BEDTIME mirtazapine 30 mg tablet 15 - 30 mg PO BEDTIME naproxen 500 mg tablet 500 mg PO BID ferrous sulfate 324 mg (65 mg iron) tablet,delayed release (DR/EC) 324 mg PO DAILY Print Language: Greenlandic
[2024-07-11 10:19] VITALS: BP 138/70; PULSE 84; RESP 16; TEMP 36.5; O2SAT 98
[2024-07-11 11:02] VITALS: BP 138/70; PULSE 84; RESP 16; TEMP 36.5; O2SAT 98
== END 2024-07-11 11:02 | disposition home or self-care (01) ==
PROVIDERS: Emergency Provider Emergency Medicine Emergency Medical Services; PCP Internal Medicine
DX: H61.21 Impacted cerumen, right ear (principal)
CPT/HCPCS: 99283; 99284

== ENCOUNTER 2024-07-30 14:58 | Outpatient (RCR) | payer OTHER, SELFPAY ==
--- NOTE | 2024-07-03 15:01 | MHC.PT.EP ---
[facility] [place] Office [place] Office [place] Office [address] Tim Gannon [address] [phone] F: [phone] F: [phone] F: [phone] F: [phone] Physical Therapy Plan of Care Date of Evaluation: 07/03/24 Date of Surgery: N/A Diagnosis: osteoarthritis of right knee (RL) Assessment: pt is a 59 y/o female presenting to physical therapy w/ referring diagnosis of osteoarthritis of right knee. Impairments include pain, decreased range of motion, decreased strength, impaired functional mobility, impaired postural awareness, and altered ambulation mechanics. pt is a good candidate for skilled PT due to age, potential remediation of impairments, typical disease/condition progression and prognosis, comorbidities, and motivation. pt would benefit from skilled PT intervention to provide a tailored strengthening and stretching exercise program, functional training, gait training, postural re-training, neuromuscular re-education, modalities as needed for pain, equipment safety demonstration. Frequency and Duration: The patient will be seen 2x/wk for 4 wks Short Term Goals: pt will be I w/ HEP to promote self-management of condition. pt will improve R knee flexion by at least 15* to promote ease in squatting. Phonograph Mechanic Goals: pt will report a statistically significant improvement in self-reported outcome measure, LEFI, to promote return to PLOF. pt will ascend/descend 12 stairs w/ reciprocal pattern using railing to promote ease in accessing her apartment. Treatment Plan: Modalities to reduce pain, spasms and effusion. Manual therapy to restore motion and function. Therapeutic exercise to improve strength and flexibility. Neuromuscular re-education for posture and balance. Therapeutic activities to return to functional activities of daily living. Electronically signed by: Lazara Card PT, DPT Please sign and return to therapist. Thank you for your referral.
--- NOTE | 2024-08-13 16:08 | MHC.PT.DC ---
[facility] [place] Office [place] Office [place] Office [address] Tim Gannon 140 [facility] [phone] F: [phone] F: [phone] F: [phone] F: [phone] Physical Therapy Discharge Report Diagnosis: osteoarthritis of right knee (RL) Date of Surgery: N/A Date of Evaluation: 07/03/24 Date of Discharge: 08/13/24 Treatments to Date: 7 Cancellations to Date: 0 No Shows to Date: 0 Discharge Status: Recommend MD Follow-up Discharge Summary: The patient does not feel physical therapy was helpful in managing her knee pain. She did have some difficulty staying on task during her session and there is questionable follow-through on recommendations made by the treating physical therapists here. 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 She is discharged from this physical therapy plan of care with recommendation to continue with her home exercise program. Electronically signed by: Lazara Card PT, DPT Please sign and return to therapist. Thank you for your referral.
== END 2024-08-13 16:08 | disposition home or self-care (01) ==
LOC: HO.PT 14:58
PROVIDERS: PCP Internal Medicine; Visit Provider Orthopaedic Surgery
DX: M17.11 Unilateral primary osteoarthritis, right knee (principal)
CPT/HCPCS: 97110; 97161; 97530

== ENCOUNTER 2024-07-31 09:44 | Emergency (ER) | payer OTHER, SELFPAY ==
--- NOTE | ~2024-07-31 | XR_ITS ---
EXAMINATION: XR LUMBOSACRAL SPINE CLINICAL INFORMATION: low back pain COMPARISON: 06/18/2023. TECHNIQUE: Three views of the lumbosacral spine. FINDINGS: There is a moderate dextroconvex scoliosis centered at T11-T12 due to the presence of a hemivertebra in between these vertebral bodies on the right. This is unchanged. There is a normal lumbar lordosis. There is a 3 mm retrolisthesis of T11 on T12, likely secondary to the right sided intervening hemivertebra. Trace retrolisthesis L2 on L3, and trace anterolisthesis L5 on S1. No fractures, compression deformities, or suspicious bone lesions. There is severe disc degeneration L5-S1. There is severe disc degeneration at T11-T12. There is otherwise mild disc degeneration. There are moderate hypertrophic degenerative facet changes most notable spanning L4-S1. Mild degenerative arthritis in the bilateral SI joints. The sacrum appears intact. No soft tissue abnormalities. XR/XR lumbar spine 2-3V IMPRESSION: 1. No acute findings of the lumbar spine. 2. 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 3. Additional chronic spondylotic findings as discussed. Electronically signed by: Chaz Garland MD 07/31/2024 11:05 AM EDT
[2024-07-31 09:46] VITALS: BP 136/61; PULSE 99; RESP 18; TEMP 36.7; O2SAT 100; BMI 36.9
--- NOTE | 2024-07-31 10:27 | ED.GENADULT ---
HPI - General Adult General Chief complaint: Back Pain/Injury Stated complaint: Back Pain No Injury Time Seen by Provider: 07/31/24 10:10 Source: patient Mode of arrival: ambulatory Limitations: no limitations History of Present Illness ED Provider: Emeterio Abbasi HPI narrative: 59-year-old female with a history of thoracic and lumbar radiculopathy being followed by spine specialists and pain management clinic presents to ED for low back pain exacerbation. Patient states back pain since Saturday without any trauma. Patient denies any urinary/bowel incontinence. Patient denies any IV drug use. Patient denies any dysuria, abdominal pain, hematuria, flank pain, nausea, or vomiting. Related Data Home Medications ?Medication ?Instructions ?Recorded ?Confirmed bupropion HCl 300 mg 24 hr tablet, 300 mg PO DAILY 01/07/23 extended release losartan 50 mg tablet 50 mg PO DAILY 01/07/23 simvastatin 40 mg tablet 40 mg PO BEDTIME 01/07/23 topiramate 100 mg tablet 100 mg PO DAILY 01/07/23 ferrous sulfate 324 mg (65 mg 324 mg PO DAILY 02/13/24 iron) tablet,delayed release mirtazapine 30 mg tablet 15 - 30 mg PO BEDTIME insomnia 02/13/24 naproxen 500 mg tablet 500 mg PO BID 02/13/24 Previous Rx's ?Medication ?Instructions ?Recorded acetaminophen 650 mg 650 mg PO Q8H PRN pain #30 tabs 01/11/24 tablet,extended release (Tylenol Arthritis Pain) oxycodone 5 mg tablet 5 mg PO Q8H PRN severe pain (scale 02/06/24 score 7-10) #5 tabs oxycodone 5 mg capsule 5 mg PO Q8H PRN pain #9 caps 07/31/24 prednisone 20 mg tablet 40 mg (2 x 20 mg) PO DAILY 5 days 07/31/24 #10 tabs Allergies Allergy/AdvReac Type Severity Reaction Status Date / Time DUST Allergy Intermediate SHORTNESS Uncoded 07/31/24 09:48 OF BREATH Review of Systems Review of Systems: Low back pain Yes all other systems are reviewed and are negative [facility] Past Medical History Medical History (Updated 08/01/24 @ 00:00 by Jenn Grossman) Asthma Diabetes mellitus, type 2 Hypercholesteremia Hypertension Surgical History (Updated 07/11/24 @ 08:40 by Bety Flores RN) H/O: hysterectomy Hx of dilation and curettage Family History Family History Brother Diabetes Pancreatic cancer Mother Diabetes Social History Social History Household Members: Spouse and Children Housing: Apartment Alcohol intake: current Alcohol intake frequency: holidays/special occasions only Patient Tobacco Use Status: Former Tobacco user Current occupational status: unemployed Sexual orientation: Straight/Heterosexual Gender identity: Female Physical Exam ED Vital Signs: Vital Signs - 24 hr 07/31/24 09:46 Temperature 98.0 F Pulse Rate 99 Respiratory Rate 18 Blood Pressure 136/61 Pulse Oximetry 100 Oxygen Delivery Method Room Air BMI result Body Mass Index 36.9 Const General: cooperative, healthy appearing, comfortable, no acute distress, well developed, alert, awake and Physically active Orientation/consciousness: patient oriented x3 HENMT Head: Yes normal to inspection, Yes No palpable skull fracture present, Yes normocephalic and Yes atraumatic Eyes General: appearance normal, both eyes and all related structures Neck Neck: Yes normal visual inspection, Yes full ROM, Yes no lymphadenopathy, Yes no meningeal signs, Yes trachea midline, Yes supple, No anterior neck swelling and No tender Chest Chest palpation & inspection: normal inspection of the chest and normal palpation of entire chest wall Resp Effort & Inspection: normal respiratory effort and able to speak in complete sentences Auscultation: clear to auscultation bilaterally Cardio Jugular venous distension: no JVD Heart sounds: S1 normal heart sound present and S2 normal heart sound present GI Inspection: Yes normal to inspection Palpation (GI): Soft to palpation, not firm, nontender, no guarding and not rigid General: Yes no CVA tenderness Back/Spine/Pelvis Back: no CVA tenderness and back tenderness (lumbar) Skin General skin exam: no rashes or lesions noted, elasticity normal and turgor normal Neuro General: patient oriented x3, gait normal, tone normal, moves all extremities, Normal light touch and pain sensation, no meningeal signs, no focal motor deficits, CN's II-XI intact bilaterally and normal sensation to monofilament Extrem General: Yes normal to inspection, Yes full ROM and Yes capillary refill normal Psych Appearance: grossly normal, well kempt and not disheveled Medications Administered Discontinued Medications Generic Name Dose Route Start Last Admin Trade Name Mignon PRN Reason Stop Dose Admin Ketorolac Tromethamine 30 mg 07/31/24 10:37 07/31/24 11:01 Ketorolac Tromethamine 30 Mg/Ml Vial IM 07/31/24 10:38 30 mg ONCE ONE Administration Oxycodone HCl 5 mg 07/31/24 10:37 07/31/24 11:01 Oxycodone Hcl Immed Release 5 Mg Tablet PO 07/31/24 10:38 5 mg ONCE ONE Administration Prednisone 40 mg 07/31/24 10:37 07/31/24 11:01 Prednisone 20 Mg Tablet PO 07/31/24 10:38 40 mg ONCE ONE Administration Medical Decision Making Medical Decision Making MDM Narrative: 59-year-old female history of lumbar thoracic radiculopathy presents to ED for low back pain exacerbation without any new trauma, neuro deficits or genitourinary symptoms. Lumbar spine x-ray ordered. Percocet, Toradol, prednisone ordered Patient has relief with pain meds. X-ray shows chronic spondylosis and scoliosis. Not suspecting cauda equinus syndrome, spinal epidural abscess, osteomyelitis, sepsis, or any other life-threatening etiology. Patient explained worrisome signs and informed to return to the ED immediately. Patient informed to follow-up with pain management and spinal surgeon specialist. Differential Diagnosis Differential Diagnoses: The differential diagnosis associated with the presentation includes (Lumbar radiculopathy fracture) Admission/Observation Consideration of admission/observation: Escalation of care including admission/observation considered Independent Interpretation I performed an independent interpretation of an: Plain X-Ray Independent Historian Clinical information obtained from an independent historian. History obtained from or confirmed by: Other (patient) Prescription Management I considered prescription management with: Pain Medication Discharge Plan Discharge Clinical Impression: Lumbar radiculopathy, Spondylosis of lumbar region without myelopathy or radiculopathy Patient Disposition: Home, Self-Care Instructions: Osteoarthritis (ED), Lumbar Radiculopathy (ED), Lower Back Exercises (ED) Additional Instructions: You will need follow-up with spinal specialist surgeon and pain management clinic. Return to the ED for any worsening back pain, abdominal pain, nausea, vomiting, flank pain, fever, chills, urinary/bowel incontinence, paralysis weakness of lower extremities, fever, chills, or any other concerning symptoms. Keep taking naproxen you have a home as needed. EXAMINATION: XR LUMBOSACRAL SPINE CLINICAL INFORMATION: low back pain COMPARISON: 06/18/2023. TECHNIQUE: Three views of the lumbosacral spine. FINDINGS: There is a moderate dextroconvex scoliosis centered at T11-T12 due to the presence of a hemivertebra in between these vertebral bodies on the right. This is unchanged. There is a normal lumbar lordosis. There is a 3 mm retrolisthesis of T11 on T12, likely secondary to the right sided intervening hemivertebra. Trace retrolisthesis L2 on L3, and trace anterolisthesis L5 on S1. No fractures, compression deformities, or suspicious bone lesions. There is severe disc degeneration L5-S1. There is severe disc degeneration at T11-T12. There is otherwise mild disc degeneration. There are moderate hypertrophic degenerative facet changes most notable spanning L4-S1. Mild degenerative arthritis in the bilateral SI joints. The sacrum appears intact. No soft tissue abnormalities. XR/XR lumbar spine 2-3V IMPRESSION: 1. No acute findings of the lumbar spine. 2. 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 3. Additional chronic spondylotic findings as discussed. Electronically signed by: Chaz Garland MD 07/31/2024 11:05 AM EDT Prescriptions: New oxycodone 5 mg capsule 5 mg PO Q8H PRN (Reason: pain) Qty: 9 0RF Rx Instructions: Partial Fill upon patient request. side effect is drowsiness. Do not take at home or while driving prednisone 20 mg tablet 40 mg PO DAILY 5 Days Qty: 10 0RF No Action acetaminophen [Tylenol Arthritis Pain] 650 mg tablet extended release 650 mg PO Q8H PRN (Reason: pain ) Qty: 30 0RF oxycodone 5 mg tablet 5 mg PO Q8H PRN (Reason: severe pain (scale score 7-10)) Qty: 5 0RF Rx Instructions: Partial Fill upon patient request. topiramate 100 mg tablet 100 mg PO DAILY losartan 50 mg tablet 50 mg PO DAILY bupropion HCl 300 mg tablet extended release 24 hr 300 mg PO DAILY simvastatin 40 mg tablet 40 mg PO BEDTIME mirtazapine 30 mg tablet 15 - 30 mg PO BEDTIME naproxen 500 mg tablet 500 mg PO BID ferrous sulfate 324 mg (65 mg iron) tablet,delayed release (DR/EC) 324 mg PO DAILY Referrals: [facility] [Provider Group] (Chronic back pain exacerbation. Chronic scoliosis and lumbar radiculopathy) [facility] [Provider Group] (Chronic back pain exacerbation. Chronic scoliosis and lumbar radiculopathy) Stand Alone Forms: Work/School Release Interventions: ED Discharge Assessment Last Done: 07/31/24 13:32 Discharge Date/Time: 07/31/24 13:33 Print Language: Romanian
[2024-07-31] MEDS: oxyCODONE HCl Immed Release 5 MG TABLET PO (11:01)
[2024-07-31] MEDS: predniSONE 20 MG TABLET 40 MG PO (11:01)
[2024-07-31] MEDS: Ketorolac Tromethamine 30 MG/ML VIAL IM (11:01)
[2024-07-31 12:00] VITALS: BP 111/37; PULSE 88; RESP 17; TEMP 36.7; O2SAT 95
[2024-07-31 13:32] VITALS: BP 111/37; PULSE 88; RESP 17; TEMP 36.7; O2SAT 95
== END 2024-07-31 13:33 | disposition home or self-care (01) ==
PROVIDERS: Emergency Provider Emergency Medicine; PCP Internal Medicine
DX: M54.16 Radiculopathy, lumbar region (principal); M47.816 Spondylosis without myelopathy or radiculopathy, lumbar region; Z79.899 Other long term (current) drug therapy
CPT/HCPCS: 72100; 96372; 99284; J1885

== ENCOUNTER → 2024-07-31 10:38 | Outpatient (BNV) | payer OTHER, SELFPAY | PROVIDERS: Emergency Provider Emergency Medicine; PCP Internal Medicine; Visit Provider Radiology Diagnostic Radiology | DX: M47.897 Other spondylosis, lumbosacral region (principal) | CPT/HCPCS: 72100 ==

== ENCOUNTER 2024-08-06 13:06 | Outpatient (AMB) | payer OTHER, SELFPAY ==
--- NOTE | 2024-08-06 13:23 | HO.SPINEOV ---
Intake Visit Reasons: ED f/u 07/31/24 [facility] Intake Note: Ms. Ibarra is here today for an ED F/u for back pain. Vp Business Development Required: No Allergies DUST Allergy (Intermediate, Uncoded 07/31/24 09:48) SHORTNESS OF BREATH Assessment & Plan Assessment & Plan (1) Lower back pain: Code(s): M54.50 - Low back pain, unspecified Category: Medical Plan This is a 59-year-old female who is following up after an emergency room visit. She is a patient with chronic long-term low back pain. She describes as being more in the lower lumbar region than anywhere else. In general on most days she is getting a pain level of somewhere between 4 and 6. She generally deals with it through taking [id number] medications like Tylenol and Motrin. Last year she was seen by and felt to be a good candidate for interventional pain procedure Intracept after her MRI was done showing Modic endplate changes at T11-12 and L5-S1. She was unable to get the procedure because of various insurance issues. She is due to follow up with him next week for another discussion. She generally does not complain of severe intense disabling type pain. Last week when she was having a flare-up she went to the emergency room but in general she just has a generalized chronic ache in her low back. No radicular symptoms although she does get occasional right hip pain. She has been through physical therapy in the past. PMH: High cholesterol, hysterectomy, depression, endometrial polyp and uterine myoma. Denies any history of coronary disease, major pulmonary problems, liver kidney disease, bleeding disorders, blood clots etc.. Social hx: She does not smoke, drink use any recreational drugs Medications: Tylenol, bupropion, iron, losartan, mirtazapine, naproxen, oxycodone, simvastatin and Topamax Allergies: No drug allergies Physical exam: Awake alert oriented no acute distress, strength, gait and reflexes are normal Imaging review: She is a lumbar MRI done at [facility] last year showing slight scoliotic curvature of the lumbar spine, she has Modic endplate type 3 changes at L5-S1. There is also similar findings at the T11-12 level. There is bilateral L5 foraminal stenosis as well. No central canal stenosis. Impression: 59-year-old female presents for evaluation of chronic lower lumbar back pain that has been going on for many years. She has occasional flare-ups and send her to the emergency room, but in general she is hovering around a pain scale between 4 and 6 throughout the day. It is not disabling pain. There are no radicular features. She has been through some basic conservative treatment. She was due to undergo Intyracept with Dr Dunbar last year but for various reasons which sounds like insurance related she was unable to have the procedure. I explained to her that she does have some disc degeneration in her back, but generally Dr. Mcintosh reserve surgery for those who have exhausted all conservative treatment and the pain is no longer tolerable. The reason for this is that despite MRI findings, the success rate for the surgery is only about 60-70%. Currently, although the pain can have flare-ups that are intense, her daily pain level is really not all that bad. think she should follow-up with Dr. Dunbar and see if theIntracept can be done. Thank you for allowing us to care for your patient. The total time spent with this visit with this patient was 45 minutes reviewing history, physical exam, lumbar imaging review, and implementation of treatment plan or further diagnostic testing Nico Mcintosh MD,PhD [facility] Coding Level of Care Code New Pt Level 4 (15782) Diagnoses Lower back pain M54.50
== END 2024-08-06 13:48 | disposition home or self-care (01) ==
LOC: HO.HNS 13:06
PROVIDERS: PCP Internal Medicine; Visit Provider Physician Assistant
DX: M54.50 Low back pain, unspecified (principal)
CPT/HCPCS: 99204

== ENCOUNTER → 2024-08-06 13:06 | Outpatient (BNVA) | payer OTHER, SELFPAY | PROVIDERS: PCP Internal Medicine; Visit Provider Physician Assistant | DX: M54.50 Low back pain, unspecified (principal); G89.29 Other chronic pain; M25.551 Pain in right hip; E78.00 Pure hypercholesterolemia, unspecified | CPT/HCPCS: 99202 ==

== ENCOUNTER 2024-08-26 15:28 | Outpatient (AMB) | payer OTHER, SELFPAY ==
--- NOTE | 2024-08-26 15:52 | MHC.OFFVIS ---
Vital Signs 08/26/24 15:53 Weight 204 lb BP 133/63 Blood Pressure Location Lt brachial Position Sitting Respiration 18 Pulse 98 Pulse Source Pulse Oximeter Pulse Oximetry (%) 98 Oxygen Delivery Method Room Air Intake Visit Reasons: ED FU ESSIE 01/16/24 Pharmacy Clinical Coordinator Required: No Allergies DUST Allergy (Intermediate, Uncoded 07/31/24 09:48) SHORTNESS OF BREATH HPI Comments Details: Dionne is back in my office after we found out that no insurance will he her intercept procedure. Attention was attracted today on stiffness of the lumbar spine with attempt to flex backwards and pain aggravation with flexing backwards and the pain aggravation of loading test. Possibility exists that part of this patient's pain is related to facet arthropathy of the lower lumbar spine. Spondylosis of the lumbar spine could be considered, because the pain of the patient is mostly axial and appears to be facetogenic in nature. The pain is aggravated when patient is walking and standing for long period of time. She reports pain with standing 9 to 10/10. This is severely disabling condition. She denies radiation of the pain into bilateral lower extremities. I offered the patient to schedule her for diagnostic medial branch block L3, L4, dorsal ramus L5. Prior: very pleasant 58 years old female who presents in my office with come complains on lower back pain in the projection of the sacral bone mostly. She reports pain does not radiate into bilateral lower extremities, she reports also pain in the projection of the lower thoracic spine. She reports that flexing forward aggravates her pain, she reports that prolonged sitting aggravates her pain as well. She reports that increased activity aggravates her pain as well. She reported that her pain started o on 06/03/2023. By now this is already subacute going on chronic pain. The patient completed physical therapy and physical therapy did not change her pain. The patient tried NSAIDs and muscle relaxants those medications were not helpful for her pain. 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 She wants to stay active. She was sent on the MRI of the lumbar spine which demonstrated T11-T12 Modic type 1 and type 2 changes as well as L5 and S1 Modic type 2 and type 1 changes. Those changes in the case of L5 and S1 vertebra superimposed 1 on another. [facility] Medical History (Updated 08/01/24 @ 00:00 by Background Daemon) Asthma Diabetes mellitus, type 2 Hypercholesteremia Hypertension Surgical History (Updated 07/11/24 @ 08:40 by Bety Flores RN) H/O: hysterectomy Hx of dilation and curettage Family History Brother Diabetes Pancreatic cancer Mother Diabetes Social History Household Members: Spouse and Children Housing: Apartment Alcohol intake: current Alcohol intake frequency: holidays/special occasions only Patient Tobacco Use Status: Former Tobacco user Current occupational status: unemployed Sexual orientation: Straight/Heterosexual Gender identity: Female Review of Systems Const All systems reviewed & are unremarkable except as noted in HPI and below ENT Reports Normal hearing present Neuro Reports Normal hearing present, Denies Abnormal speech present and Denies Sensory deficit (Neuro) Physical Exam Vital Signs: Last Vital Signs Pulse 98 08/26/24 15:53 Resp 18 08/26/24 15:53 BP 133/63 08/26/24 15:53 Pulse Ox 98 08/26/24 15:53 Oxygen Delivery Method Room Air 08/26/24 15:53 Const General: cooperative, healthy appearing, no acute distress, well developed, alert and awake Nutritional Appearance: obese Eyes General: appearance normal, both eyes and all related structures Pupils: Equal, round and reactive pupils present EOM: EOMs intact bilaterally Neck Neck: Yes full ROM Resp Effort & Inspection: normal respiratory effort, able to speak in complete sentences, normal respiratory pattern, no audible wheezes and no cough Cardio Jugular venous distension: no JVD GI Inspection: Yes normal to inspection Back/Spine/Pelvis Other: She is able to stand on bilateral tiptoes in bilateral heels without any difficulty. She is able to flex herself forward and flex herself backwards he reports flexing backwards aggravate her pain. Loading test is positive bilaterally. tenderness on palpation in projection of the sacral bone and lower lumbar spines. She reports flexing sideways aggravate her pain as well. She denies Valsalva maneuver aggravates her pain. SLR is negative bilaterally. Ruddy test is equivocal bilaterally however pelvic compression test pelvic distraction test and Stinchfield tests are negative . Lateral rotation of the hips does not cause discomfort in the groins. Neuro Cranial nerves: Yes Equal, round and reactive pupils present and Yes Normal hearing present Speech: No Abnormal speech present Gait exam (Neuro): Normal gait present Motor exam (neuro): 5/5 motor strength present throughout Sensory Exam: No Sensory deficit (Neuro) Extrem General: No pedal edema Psych Speech and movement: Normal speech and movement present Affect: normal affect Attitude: cooperative Thought process: Normal thought process present Thought content: Normal thought content present Insight: Good insight present (Psych) Judgement: Good judgement present (Psych) Assessment & Plan Assessment & Plan (1) Idiopathic scoliosis of lumbar region: Code(s): M41.26 - Other idiopathic scoliosis, lumbar region Category: Medical (2) Spondylosis of lumbar region without myelopathy or radiculopathy: Code(s): M47.816 - Spondylosis without myelopathy or radiculopathy, lumbar region Category: Medical (3) Lower back pain: Code(s): M54.50 - Low back pain, unspecified Category: Medical Plan Attention was attracted today that at least part of the patient's pain may be related to spondylosis of the lumbar spine and facet arthropathy. I offered the patient to consider L3, L4, dorsal ramus L5 bilateral medial branch block diagnostic to properly determine whether her pain is coming from facet joint arthropathy of the lower lumbar spine. Informed consent was thoroughly explained to the patient were risks and benefits were explained. Patient agreed to go for the procedure. 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 Very concerned about addiction to opioids. Coding Level of Care Code Est Pt Level 3 (89249) Diagnoses Idiopathic scoliosis of lumbar region M41.26 Spondylosis of lumbar region without myelopathy or radiculopathy M47.816 Lower back pain M54.50
[2024-08-26 15:53] VITALS: BP 133/63; PULSE 98; RESP 18; O2SAT 98
== END 2024-08-26 16:20 | disposition home or self-care (01) ==
LOC: HO.PMC 15:28
PROVIDERS: PCP Internal Medicine; Visit Provider Anesthesiology
DX: M41.26 Other idiopathic scoliosis, lumbar region (principal); M47.816 Spondylosis without myelopathy or radiculopathy, lumbar region; M54.50 Low back pain, unspecified
CPT/HCPCS: 99213

== ENCOUNTER → 2024-08-26 15:28 | Outpatient (BNVA) | payer OTHER, SELFPAY | PROVIDERS: PCP Internal Medicine; Visit Provider Anesthesiology | DX: M47.816 Spondylosis without myelopathy or radiculopathy, lumbar region (principal); M41.26 Other idiopathic scoliosis, lumbar region; M54.50 Low back pain, unspecified | CPT/HCPCS: 99212 ==

== ENCOUNTER 2024-09-21 13:17 | Outpatient (AMB) | payer OTHER, SELFPAY ==
--- NOTE | 2024-09-21 13:19 | A.OFFVIS_ITS ---
Intake Visit Reasons: TEL-Right knee follow up-Video call Intake Note: Dionne is a 59 year old female who presents today for a Telehealth follow up s/p Right Knee Durolane Injection 06/22/24. She is pending booking with Pain Mgmt for bilateral Diagnositc L3-L4-DR L5 MARTINB. Allergies DUST Allergy (Intermediate, Uncoded 07/31/24 09:48) SHORTNESS OF BREATH HPI HPI TEL-Right knee follow up-Video call: Details: Dionne continues to have right knee pain. She has benefitted from Demetrice in the past. She states that her knee is up and down all the time and she never feels completely better but it is not always awful. Steroid injections have not worked and she seems to get about 6 months benefit from Demetrice injections. [facility] Medical History (Updated 08/01/24 @ 00:00 by Jenn Grossman) Asthma Diabetes mellitus, type 2 Hypercholesteremia Hypertension Surgical History (Updated 07/11/24 @ 08:40 by eBty Flores RN) H/O: hysterectomy Hx of dilation and curettage Family History Brother Diabetes Pancreatic cancer Mother Diabetes Social History Household Members: Spouse and Children Housing: Apartment Alcohol intake: current Alcohol intake frequency: holidays/special occasions only Patient Tobacco Use Status: Former Tobacco user Current occupational status: unemployed Sexual orientation: Straight/Heterosexual Gender identity: Female Telehealth Telehealth Telehealth Platform: Telephone Location of provider rendering services: practice address Location of patient: address on file Patient Identification confirmed using: Name, : Yes Telehealth method: voice only Patient verbally consented to treatment: Yes Patient verbally consented to billing insurance company: Yes Patient informed of any privacy concerns related to visit: Yes Assessment & Plan Assessment & Plan (1) Osteoarthritis of right knee: Code(s): M17.11 - Unilateral primary osteoarthritis, right knee Category: Medical Plan: Right knee osteoarthritis. Demetrice has been effective for her and lasts about 6 months. She would like to repeat that. I will plan on doing that as soon as her insurance allows. Coding Level of Care Code Tele Est Pt Level 3 (84548) Diagnoses Osteoarthritis of right knee M17.11
== END 2024-09-21 14:23 | disposition home or self-care (01) ==
LOC: HO.HOS 13:17
PROVIDERS: PCP Internal Medicine; Visit Provider Orthopaedic Surgery
DX: M17.11 Unilateral primary osteoarthritis, right knee (principal)
CPT/HCPCS: 98013

== ENCOUNTER 2024-10-19 13:29 | Outpatient (AMB) | payer OTHER, SELFPAY ==
--- NOTE | 2024-10-19 13:50 | MHC.OFFVIS ---
Vital Signs 10/19/24 13:50 Height 5 ft 3 in Intake Visit Reasons: 6m iih Allergies DUST Allergy (Intermediate, Uncoded 10/19/24 13:58) SHORTNESS OF BREATH Medication List - Last Reconciled 10/19/24 by Teresa Arce CNP acetaminophen ER (Tylenol Arthritis Pain) 650 mg PO Q8H PRN bupropion HCl XL 300 mg PO DAILY ferrous sulfate 324 mg PO DAILY losartan 50 mg PO DAILY naproxen 500 mg PO BID oxycodone 5 mg PO Q8H PRN oxycodone 5 mg PO Q8H PRN prednisone 40 mg (2 x 20 mg) PO DAILY 5 days simvastatin 40 mg PO BEDTIME topiramate 100 mg PO DAILY zolpidem 5 mg PO BEDTIME HPI Comments Details: 59-year-old woman who had an incidental finding of bilateral papilledema and routine eye examination in 2014. Her MRI of brain revealed multiple meningiomas. Lumbar puncture revealed CSF opening pressure of 380 mm.?Repeat lumbar puncture in 2016 revealed opening pressure of 375 mm of water. Some of the meningiomas were obstructing venous sinuses, and she had radiation treatment at [facility]. She was doing okay. Headaches were about the same, gets some pressure-type pain. No double vision. She had eye exam in 04/2024. She stopped mirtazepine due to weight gain and has lost some weight since stopping medication. Sleep was okay with zolpidem. Ongoing back pain and issue with L5-S1, following with pain management. [facility] Medical History (Updated 10/19/24 @ 14:10 by Teresa Arce CNP) Ulnar neuropathy Paresthesia of skin Migraine Obesity Cerebral meningioma Papilledema Asthma Diabetes mellitus, type 2 Hypercholesteremia Hypertension Surgical History (Updated 07/11/24 @ 08:40 by Bety Flores RN) H/O: hysterectomy Hx of dilation and curettage Family History Brother Diabetes Pancreatic cancer Mother Diabetes Social History Household Members: Spouse and Children Housing: Apartment Alcohol intake: current Alcohol intake frequency: holidays/special occasions only Patient Tobacco Use Status: Former Tobacco user Current occupational status: unemployed Sexual orientation: Straight/Heterosexual Gender identity: Female Review of Systems Const Denies chills, Denies daytime sleepiness, Denies difficulty sleeping, Denies fatigue, Denies fever(s), Denies frequent falls, Reports headache(s), Denies increased appetite, Denies poor appetite, Denies snoring, Denies weakness, Denies weight gain and Denies weight loss Eyes Denies loss of vision ENT Denies vertigo, Denies dizziness and Reports headache(s) Card Denies chest pain at rest, Denies chest pain with activity, Denies syncope, Denies leg edema and Denies palpitations Resp Denies snoring GI Denies constipation, Denies heartburn, Denies diarrhea and Denies nausea Denies urinary frequency, Denies urinary incontinence and Denies urinary urgency Musc Denies abnormal gait, Denies numbness and Denies tingling Skin/Breast Denies dry skin and Denies rash Neuro Denies abnormal gait, Denies vertigo, Denies dizziness, Denies syncope, Denies frequent falls, Reports headache(s), Denies lack of coordination, Denies loss of vision, Denies memory loss, Denies numbness, Denies restless legs, Denies seizure-like activity, Denies tingling, Denies paresthesias, Denies tremor(s) and Denies weakness Psych Denies anxiety, Denies depression, Denies auditory hallucinations, Denies memory loss, Denies visual hallucinations and Denies suicidal ideation Endo Denies fatigue and Denies palpitations Physical Exam Const Other: General Appearance:? normal, in no acute distress. Skin:? no rashes, no significant birthmarks. Heart:? S1, S2 normal, no murmurs. Lungs:? clear anteriorly and posteriorly. Extremities:? no edema. Psych:? alert, oriented, cognitive function intact, cooperative with exam. Neuro Other: Mental Status:?Normal attention, orientation, memory and affect.? Cranial Nerves:?Pupils are equal, round and reactive to light. External occular muscles are intact. Visual vega are full. Face is symmetrical. Facial sensations are normal. Tongue is midline. Palate elevates symmetrically. Shoulder shrugging is normal. Hearing to bedside conversation is normal. Fundoscopy: blurred disc margins. Coordination:?No ataxia,?no titubation.? Gait Exam: Slow and cautious. Extrapyramidal System:?No tremor, rigidity with normal facial expressions.? Pronator Drift:?Not present.? Involuntary Movements:?No tremors seen.? Speech:?Normal.? Results Reviewed Results Reviewed: NCV/EMG UE Mild right ulnar neuropathy across the elbow. 04/19/22. MRV brain [place] [facility] [place]: multiple meningiomas, some of them iinvading dural sinuses and resulting in stenosis CSF analysis at [facility] [place] Apr 2018: OP 31cm, Glu 63, Pro 47.9 CSF analysis at [facility] [place] Mar 2016: OP 375mm, WBCs 1, RBCs 0, Glu 62, Pro 57.5 MRI brain WWO at [facility] in Dec 2014: multiple post fossa and left parietal extraaxial enhancing lesions, probably meningiomas, CSF analysis at [facility] in Jan 2015: OP 380 mm, WBCs 7, RBCs 0, Glu 63, Pro 41.7, IgG inde: WNL, OCBs: 2 bands that are also present in serum but some are more prominant in CSF. Labs at [facility] in Jan 2015: Lyme neg, RPR neg, GARRETT WNL, ESR 16. Labst at [facility] in Feb 2015: HIV neg, RF ok. Assessment & Plan Assessment & Plan (1) Pseudotumor cerebri: Code(s): G93.2 - Benign intracranial hypertension Category: Medical Plan: Continue topiramate 100mg 1 tablet at bedtime. (2) Cerebral meningioma: Code(s): D32.0 - Benign neoplasm of cerebral meninges Category: Medical (3) Multiple meningioma: Code(s): D42.9 - Neoplasm of uncertain behavior of meninges, unspecified Category: Medical (4) Migraine: Code(s): G43.909 - Migraine, unspecified, not intractable, without status migrainosus Category: Medical Qualifiers: Migraine type: unspecified Status migrainosus presence: without status migrainosus Intractability: not intractable Qualified Code(s): G43.909 - Migraine, unspecified, not intractable, without status migrainosus (5) Ulnar neuropathy: Code(s): G56.20 - Lesion of ulnar nerve, unspecified upper limb Category: Medical Qualifiers: Laterality: unspecified laterality Qualified Code(s): G56.20 - Lesion of ulnar nerve, unspecified upper limb Plan . Medications: Changed From topiramate 100 mg PO DAILY To topiramate 100 mg PO DAILY 90 tabs 1RF 90 days Coding Level of Care Code Est Pt Level 4 (09623) Diagnoses Pseudotumor cerebri G93.2 Cerebral meningioma D32.0 Multiple meningioma D42.9 Migraine without status migrainosus, not intractable, unspecified migraine type G43.909 Migraine type: unspecified Status migrainosus presence: without status migrainosus Intractability: not intractable Ulnar neuropathy, unspecified laterality G56.20 Laterality: unspecified laterality
== END 2024-10-19 14:13 | disposition home or self-care (01) ==
LOC: HO.HSM 13:30
PROVIDERS: PCP Internal Medicine; Referring Provider Internal Medicine; Visit Provider Registered Nurse
DX: G93.2 Benign intracranial hypertension (principal); D32.0 Benign neoplasm of cerebral meninges; D42.9 Neoplasm of uncertain behavior of meninges, unspecified; G43.909 Migraine, unspecified, not intractable, without status migrainosus; G56.20 Lesion of ulnar nerve, unspecified upper limb
CPT/HCPCS: 99214

== ENCOUNTER → 2024-10-19 13:29 | Outpatient (BNVA) | payer OTHER, SELFPAY | PROVIDERS: PCP Internal Medicine; Referring Provider Internal Medicine; Visit Provider Registered Nurse | DX: G43.909 Migraine, unspecified, not intractable, without status migrainosus (principal); G56.20 Lesion of ulnar nerve, unspecified upper limb; G93.2 Benign intracranial hypertension; D32.0 Benign neoplasm of cerebral meninges; D42.9 Neoplasm of uncertain behavior of meninges, unspecified | CPT/HCPCS: 99212 ==

== ENCOUNTER 2024-11-07 08:40 | Outpatient (REF) | payer OTHER, SELFPAY ==
[2024-11-07 10:25] LABS: Alanine Aminotransferase 32 U/L (0-31); Albumin Level 4.2 g/dL (3.5-5.0); Alkaline Phosphatase 102 U/L (39-117); Anion Gap 14 (12-20); Aspartate Amino Transferase 27 U/L (5-31); Blood Urea Nitrogen 19 mg/dL (9-16); Calcium 10.0 mg/dL (8.4-10.2); Carbon Dioxide 24 mmol/L (22-29); Chloride 109 mmol/L (96-108); Cholesterol 186 mg/dL (<200); Estimated Glomerular Filt Rate 52; HDL Cholesterol 49 mg/dL (>40); Potassium 4.3 mmol/L (3.3-5.1); Sodium 143 mmol/L (135-145); Total Protein 6.8 g/dL (6.5-8.0); Triglycerides 207 mg/dL (<150)
== END 2024-11-07 08:41 | disposition home or self-care (01) ==
LOC: HO.LAB 08:40
PROVIDERS: PCP Internal Medicine; Visit Provider Internal Medicine
DX: I10 Essential (primary) hypertension (principal); E78.00 Pure hypercholesterolemia, unspecified; F32.5 Major depressive disorder, single episode, in full remission; Z90.710 Acquired absence of both cervix and uterus
CPT/HCPCS: 36415; 80053; 80061

== ENCOUNTER 2024-11-16 07:59 | Outpatient (REF) | payer OTHER, SELFPAY ==
--- NOTE | ~2024-11-16 | MM_ITS ---
EXAMINATION: MM SCREENING DIGITAL BREAST TOMOSYNTHESIS, BILATERAL CLINICAL INFORMATION: Screening. Asymptomatic. COMPARISON: Mammography: Comparison is made with available priors TECHNIQUE: Digital breast mammography with tomosynthesis is performed in both the craniocaudal and mediolateral oblique views along with computer-aided detection (CAD). FINDINGS: There are scattered areas of fibroglandular density (ACR BI-RADS breast composition Category b). There are no significant masses, abnormal calcifications, or other abnormalities. MM/MM tomosynthesis screening BI IMPRESSION: No mammographic evidence of malignancy. ASSESSMENT: BI-RADS BI-RADS 1 - Negative RECOMMENDATION: Routine annual mammography screening. 1 year F/U This examination should not preclude the clinical evaluation of a suspicious palpable abnormality. This patient's information was entered into a reminder system with a target due date for their next mammogram. Electronically signed by: Celia Coleman DO 11/17/2024 02:42 PM EDT
== END 2024-11-16 08:00 | disposition home or self-care (01) ==
LOC: HO.MAMMO 07:59
PROVIDERS: PCP Internal Medicine; Visit Provider Internal Medicine
DX: Z12.31 Encounter for screening mammogram for malignant neoplasm of breast (principal)
CPT/HCPCS: 77063; 77067

== ENCOUNTER → 2024-11-16 08:30 | Outpatient (BNV) | payer OTHER, SELFPAY | PROVIDERS: PCP Internal Medicine; Visit Provider Internal Medicine | DX: Z12.31 Encounter for screening mammogram for malignant neoplasm of breast (principal) | CPT/HCPCS: 77063; 77067 ==

== ENCOUNTER 2024-12-28 13:43 | Outpatient (AMB) | payer OTHER, SELFPAY ==
--- NOTE | 2024-12-28 13:48 | A.OFFVIS_ITS ---
Intake Visit Reasons: Inj - Right Knee Durolane Injection-last 06/22/24 Intake Note: Dionne is a 59 year old female who presents today for a right knee Durolane Injection Allergies DUST Allergy (Intermediate, Uncoded 10/19/24 13:58) SHORTNESS OF BREATH HPI HPI Inj - Right Knee Durolane Injection-last 06/22/24: Details: Dionne is a 59 year old female who presents today for a right knee Durolane Injection. COUNT INCLUDES THE [facility] Medical History (Updated 10/19/24 @ 14:10 by Teresa Arce CNP) Ulnar neuropathy Paresthesia of skin Migraine Obesity Cerebral meningioma Papilledema Asthma Diabetes mellitus, type 2 Hypercholesteremia Hypertension Surgical History (Updated 07/11/24 @ 08:40 by Bety Flores RN) H/O: hysterectomy Hx of dilation and curettage Family History Brother Diabetes Pancreatic cancer Mother Diabetes Social History Household Members: Spouse and Children Housing: Apartment Alcohol intake: current Alcohol intake frequency: holidays/special occasions only Patient Tobacco Use Status: Former Tobacco user Current occupational status: unemployed Sexual orientation: Straight/Heterosexual Gender identity: Female Physical Exam Exam Exam: skin c/d/i Office Procedures Joint Inj/Aspir; Non-Pain Clin Joint Injection/Drain Details: Injected Durolane. Site was prepped using aseptic technique. Patient tolerated the procedure well. Shoulders, Hips, Knees, Knee Large Joint Injection : Right Knee Coding Procedure code (CPT) selection complete Assessment & Plan Assessment & Plan (1) Osteoarthritis of right knee: Code(s): M17.11 - Unilateral primary osteoarthritis, right knee Category: Medical Plan: Right knee injected with Durolane. Seems to work for her. Coding Level of Care Code Est Pt Level 2 (11190) Diagnoses Osteoarthritis of right knee M17.11 CPT Codes Shoulders, Hips, Knees, - Knee Large Joint Injection : Right Knee ([id number])
== END 2024-12-28 14:10 | disposition home or self-care (01) ==
LOC: HO.HOS 13:44
PROVIDERS: PCP Internal Medicine; Visit Provider Orthopaedic Surgery
DX: M17.11 Unilateral primary osteoarthritis, right knee (principal)
CPT/HCPCS: 20610

== ENCOUNTER → 2024-12-28 13:43 | Outpatient (BNVA) | payer OTHER, SELFPAY | PROVIDERS: PCP Internal Medicine; Visit Provider Orthopaedic Surgery | DX: M17.11 Unilateral primary osteoarthritis, right knee (principal) | CPT/HCPCS: 20610; J7318 ==